=== PATIENT | male | born 1985 | race Caucasian/White ===

== ENCOUNTER → 2016-12-30 | Outpatient (CLI) | payer OTHER ==
[2016-12-30 17:03] LABS: Basophils # (A) 0.1 k/uL (0-0.2); Basophils % (A) 1 %; CHCM 33.8; Eosinophils # (A) 0.4 k/uL (0-0.7); Eosinophils % (A) 4 %; HCT 44.5 % (39.0-53.0); HDW 2.47; HGB 14.7 gm/dL (13.0-17.5); Luc # (Auto) 0.21; Luc % (Auto) 2; Lymphocytes # (A) 2.2 k/uL (1.0-4.8); Lymphocytes % (A) 22 %; MCH 29.5 pg (25.0-35.0); MCHC 33.1 g/dL (31.0-37.0); MCV 89.1 fL (80.0-100.0); Mean Platelet Volume 6.9; Monocytes # (A) 0.9 k/uL (0-1.0); Monocytes % (A) 9 %; Neutrophils # (A) 6.2 k/uL (1.3-7.7); Neutrophils % (A) 62 %; RBC 4.99 m/uL (4.30-5.90); RDW 13.3 % (11.5-15.5); WBC (Perox) 9.59
[2016-12-30 17:05] LABS: Appearance,Urine Clear (Clear); Bilirubin,Urine Negative (Negative); Glucose,Urine (UA) Negative (Negative); Ketones,Urine Negative (Negative); Leukocyte Esterase,Urine Small (Negative); Mucus,Urine Few /hpf; Nitrite,Urine Negative (Negative); Particle Count 3214; Protein,Urine Trace (Negative); RBC,Urine 4 /hpf (0-5); Specific Gravity,Urine 1.019 (1.001-1.035); Squamous Epithelial Cell,Urine <1 /hpf (0-4); UA Billing (MACRO vs. MICRO) MICRO; WBC,Urine 28 /hpf (0-5)
[2016-12-30 17:06] LABS: Partial Thromboplastin Time 26.9 sec (22.0-30.0); Prothrombin Time 10.5 sec (9.0-12.0)
[2016-12-30 17:21] LABS: Anion Gap 11 mmol/L; Blood Urea Nitrogen 13 mg/dL (9-20); Carbon Dioxide 24 mmol/L (22-30); Chloride 108 mmol/L (98-107); Glucose 86 mg/dL (74-99); Non-African American GFR(MDRD) >60 (>60 ml/min/1.73 sqM); Potassium 4.3 mmol/L (3.5-5.1); Sodium 143 mmol/L (137-145)
== END | disposition home or self-care (01) ==
LOC: LABWHC1 16:37
PROVIDERS: ATTEND Neurological Surgery
DX: Z01.812 Encounter for preprocedural laboratory examination (principal); D68.9 Coagulation defect, unspecified; M51.9 Unspecified thoracic, thoracolumbar and lumbosacral intervertebral disc disorder
CPT/HCPCS: 36415; 80051; 81001; 82565; 82947; 84520; 85025; 85610; 85730; 87070

== ENCOUNTER 2017-03-17 00:37 | Emergency (ER) | payer OTHER ==
[2017-03-17] MEDS ORDERED: HYDROmorphone 1 MG/ML 1 ML SYRINGE IM STA (01:15)
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
[2017-03-17] MEDS ORDERED: KETOROLAC 60 MG/2 ML VIAL IM STA (01:57)
--- NOTE | 2017-03-17 02:34 | XR ---
EXAM: XR Left Hip, 2 or 3 Views CLINICAL HISTORY: Pain. TECHNIQUE: Two views of the left hip. COMPARISON: Left hip radiograph dated 07/10/15. FINDINGS: Bones/joints: No acute fracture or dislocation. No significant degenerative changes. No suspicious osseous lesion. Soft tissues: Unremarkable. IMPRESSION: No acute abnormality. No significant interval change.
--- NOTE | 2017-03-17 02:36 | XR ---
EXAM: XR Pelvis, 1 or 2 Views CLINICAL HISTORY: Pain. TECHNIQUE: Frontal view of the pelvis. COMPARISON: Pelvic radiograph dated 06/18/16. FINDINGS: Bones/joints: No acute fracture. No dislocation. There is a small sclerotic focus at the right femoral neck, compatible with a bone island. Soft tissues: Surgical clips project over the lower abdomen.. IMPRESSION: No acute abnormality. No significant interval change.
--- NOTE | 2017-03-17 02:40 | XR ---
EXAM: XR Lumbar Spine, 4 or 5 Views CLINICAL HISTORY: Pain. TECHNIQUE: Frontal, lateral and oblique views of the lumbar spine. COMPARISON: Lumbar spine radiograph dated 06/18/16. FINDINGS: Vertebrae: The vertebral body heights are maintained. No acute fracture. Normal alignment. Disc spaces: There is disc height loss at L1-2 and L4-5, similar to prior. Soft tissues: Redemonstrated surgical clips projecting over the right abdomen. IMPRESSION: No acute abnormality detected. No significant interval change.
[2017-03-17 02:42] VITALS: TEMP 97.3
[2017-03-17] MEDS ORDERED: methylPREDNISolone SOD SUCCI 125 MG/2 ML VIAL IM ONE (02:49)
[2017-03-17] MEDS ORDERED: DIAZEPAM 5 MG TAB PO STA (02:49)
[2017-03-17 03:10] VITALS: BP 110/63; PULSE 68; RESP 16
== END 2017-03-17 03:13 | disposition home or self-care (01) ==
LOC: EC 00:37
DX: M54.16 Radiculopathy, lumbar region (principal); M25.552 Pain in left hip; F41.9 Anxiety disorder, unspecified; F17.200 Nicotine dependence, unspecified, uncomplicated; Z79.899 Other long term (current) drug therapy; Z85.47 Personal history of malignant neoplasm of testis; Z98.890 Other specified postprocedural states
CPT/HCPCS: 72110; 72170; 73502; 99283; 96372 ×3; J2930; J1885; J1170

== ENCOUNTER → 2017-04-08 | Outpatient (CLI) | payer OTHER ==
--- NOTE | 2017-04-10 13:24 | MR ---
EXAMINATION TYPE: MR lumbar spine wo/w con DATE OF EXAM: 04/08/2017 6:42 PM COMPARISON: 06/25/2016 HISTORY: back surgery 12/2016 CONTRAST: 20 mL intravenous MultiHance. TECHNIQUE: Multiplanar, multisequence images of the lumbar spine were acquired. FINDINGS: L5-S1: No focal disc herniation is evident. No significant disc bulge is evident. Old left laminectom y is evident. No spinal canal stenosis or neural foraminal stenosis is present. L4-L5: No significant disc bulge or disc herniation. No spinal canal stenosis. No foraminal stenosi s. Disc space narrowing is present. Old left laminectomy is present.. L3-L4: Broad-based disc bulge has anterior thecal sac contact. No AP spinal canal stenosis is present . There is disc desiccation and mild narrowing of the disc height. No spinal canal stenosis. No for aminal stenosis. . L2-L3: No significant disc bulge or disc herniation. No spinal canal stenosis. No foraminal stenosi s. Neural foramen are patent.. L1-L2: Minimal disc bulging is anterior thecal sac contact. No spinal canal stenosis present. There i s disc space narrowing. Mild disc desiccation is present. No spinal canal stenosis. No foraminal st enosis. . T12-L1: No significant disc bulge or disc herniation. No spinal canal stenosis. No foraminal stenos is. Neural foramen are patent.. There is abnormal patchy signal within the distal spinal cord posterior to the T10 inferior vertebral body level. Series 201 image 8. This area is incompletely evaluated. Recommend CT thoracic spine wit h contrast for additional evaluation. Cord expansion is not identified. No definite enhancement is id entified. IMPRESSION: 1. Patchy area of increased signal within the distal spinal cord. Correlate for history of multiple s clerosis. Additional evaluation with contrast MRI CT is recommended. This area is incompletely evalua pita on the current exam. 2. Mild disc bulging lumbar spine, greatest at L3-4 with mild anterior thecal sac compression. 3. Disc desiccation L3-4, L1 -L2
== END | disposition home or self-care (01) ==
LOC: RADMRIMAIN 17:51
PROVIDERS: ATTEND Nurse Practitioner Family
DX: M51.16 Intervertebral disc disorders with radiculopathy, lumbar region (principal)
CPT/HCPCS: 72158; A9577

== ENCOUNTER 2017-06-27 10:30 | Day surgery (SDC) | payer OTHER ==
[2017-06-23 12:40] VITALS: BMI 31.3
[2017-06-27 11:11] VITALS: RESP 16; TEMP 98
[2017-06-27] MEDS: LACTATED RINGERS 1,000 ML IV SCH ×2 (11:16→12:10)
[2017-06-27] MEDS ORDERED: MIDAZOLAM 2 MG/2 ML VIAL ONE (12:12)
[2017-06-27] MEDS ORDERED: LIDOCAINE 1% INJ 10MG/ML (20 ML MDV) ONE (12:12)
[2017-06-27] MEDS ORDERED: PROPOFOL 10 MG/ML 20 ML VIAL IV ONE (12:12)
--- NOTE | 2017-06-27 12:51 | P.PCN ---
Date of Procedure: 06/27/17 Preoperative Diagnosis: Postoperative Diagnosis: Procedure(s) Performed: Procedure: Esophagogastroduodenoscopy and biopsy. Preoperative diagnosis: Gastroesophageal reflux disease. Postoperative diagnosis: 1. Hiatal hernia with LA grade B distal esophagitis and short segment of Wu's esophagus. 2. Mild gastritis and duodenitis. Preparation and sedation: Was provided by anesthesia. Brief clinical history: The patient is a 32-year-old male who I have evaluated in the office regarding chronic reflux symptoms. The patient is currently maintained on PPI and H2 blockers without complete relief. This evaluation is to assess for esophagitis, complicated reflux disease or other pathology. Procedure: With the patient on his left lateral decubitus position and after informed consent and adequate sedation, I passed the Olympus-GIF 160 video upper endoscope through the cricopharyngeus down the esophagus. The hui-GE junction was at around 32 cm from the incisors and it was irregular and the tubular esophagus continued for around 36 cm. There was a 3-4 cm hiatal hernia. The esophagus proximal to the GE junction had multiple punctated erosions and superficial ulcerations consistent with LA grade B distal esophagitis. There was no strictures. The endoscope was then passed into the stomach which was insufflated with air and inspected in detail including the retroflex view in the cardia. There was some mottling and erythema in the antrum but no ulcers or erosions. Pyloric channel did not show any ulcers. Duodenal bulb, post bulbar area and descending duodenum showed mild erythema. I obtained biopsies from the duodenum, antrum and esophagus as well as from the Wu's segment before the endoscope was withdrawn. The patient tolerated the procedure well. Plan: The patient was reassured. Will await pathology results. I would recommend intensifying his medical therapy and consider repeat EGD to assess the healing of his esophagitis. He will probably have regular evaluations as well for his Wu's esophagus. I will keep you updated on his progress. Implants: Indications for Procedure: Operative Findings: Description of Procedure:
[2017-06-27 13:01] VITALS: BP 102/64; PULSE 69
== END 2017-06-27 14:00 | disposition home or self-care (01) ==
LOC: ORWHC2ENDO 10:30
DX: K29.50 Unspecified chronic gastritis without bleeding (principal); K21.0 Gastro-esophageal reflux disease with esophagitis; K20.0 Eosinophilic esophagitis; K22.70 Barrett's esophagus without dysplasia; K44.9 Diaphragmatic hernia without obstruction or gangrene; J45.909 Unspecified asthma, uncomplicated; F17.200 Nicotine dependence, unspecified, uncomplicated; Z85.47 Personal history of malignant neoplasm of testis; Z79.899 Other long term (current) drug therapy
CPT/HCPCS: 88305; 88313; 88342; 43239; J2250; J2001; J2704

== ENCOUNTER 2018-02-04 00:38 | Emergency (ER) | payer OTHER ==
[2018-02-04] MEDS ORDERED: MAG HYDROX/AL HYDROX/SIMETH 30 ML, HYOSCYAMINE ELIXIR 10 ML, CIMETIDINE HCL 300 MG, LID... PO STA ×4 (01:01)
--- NOTE | 2018-02-04 01:02 | ED ---
Chest Pain HPI - General Chief Complaint: Chest Pain Stated Complaint: SUZANNE Time Seen by Provider: 02/04/18 00:57 Source: patient Mode of arrival: wheelchair Limitations: no limitations - History of Present Illness MD Complaint: chest pain -: hour(s) Onset: during rest Pain Location: substernal, epigastric Pain Radiation: none Severity: severe Quality: aching, other Consistency: constant Improves With: nothing Worsens With: nothing Other Symptoms: cough Treatments Prior to Arrival: none - Related Data Home Medications Medication Instructions Recorded Confirmed Gabapentin [Neurontin] 600 mg PO TID 06/18/16 06/23/17 Cephalexin [Keflex] 500 mg PO Q12HR 06/23/17 06/23/17 Cetirizine HCl [Zyrtec] 10 mg PO DAILY 06/23/17 06/23/17 Omeprazole [PriLOSEC] 20 mg PO AC-BRKFST 06/23/17 06/23/17 Ranitidine HCl [Zantac] 150 mg PO BID 06/23/17 06/23/17 Venlafaxine HCl [Effexor XR] 37.5 mg PO DAILY 06/23/17 06/23/17 Allergies Allergy/AdvReac Type Severity Reaction Status Date / Time No Known Allergies Allergy Verified 02/04/18 00:49 Review of Systems ROS Statement: Those systems with pertinent positive or pertinent negative responses have been documented in the HPI. ROS Other: All systems not noted in ROS Statement are negative. Constitutional: Denies: fever, chills, weakness Respiratory: Denies: cough, dyspnea Cardiovascular: Reports: chest pain. Denies: palpitations, dyspnea on exertion , orthopnea, edema, syncope Gastrointestinal: Denies: abdominal pain, nausea, vomiting, diarrhea Genitourinary: Denies: dysuria, hematuria Musculoskeletal: Denies: back pain Skin: Denies: rash Neurological: Denies: headache, weakness, numbness EKG Findings - EKG Results: EKG: interpreted by KAUSHIK CAMACHO, sinus rhythm (Approximately 80 bpm), normal axis , normal QRS, normal ST/T, no acute changes - CT, Pacemaker, Normal: Normal tracing: normal tracing Past Medical History Past Medical History: Asthma, Cancer, GERD/Reflux, Seizure Disorder Additional Past Medical History / Comment(s): Testicular CA ,chronic back pain, SEIZURE -LAST ONE May. History of Any Multi-Drug Resistant Organisms: None Reported Past Surgical History: Back Surgery Additional Past Surgical History / Comment(s): testicular surgery, lymph node removal in abdomen Past Anesthesia/Blood Transfusion Reactions: Blood Transfusion Reaction, Motion Sickness Additional Past Anesthesia/Blood Transfusion Reaction / Comment(s): "WOKE UP DURING THE LYMPH NODE SURGERY, Past Psychological History: Anxiety, Depression Smoking Status: Current every day smoker Past Alcohol Use History: None Reported Past Drug Use History: None Reported General Exam Limitations: no limitations General appearance: alert, in no apparent distress Head exam: Present: atraumatic, normocephalic Eye exam: Present: normal appearance. Absent: scleral icterus, conjunctival injection ENT exam: Present: normal oropharynx Neck exam: Present: normal inspection Respiratory exam: Present: normal lung sounds bilaterally. Absent: respiratory distress, wheezes, rales, rhonchi, stridor Cardiovascular Exam: Present: regular rate, normal rhythm, normal heart sounds. Absent: systolic murmur, diastolic murmur, rubs, gallop GI/Abdominal exam: Present: soft. Absent: distended, tenderness, guarding, rebound, rigid Extremities exam: Present: normal inspection, normal capillary refill. Absent: pedal edema, calf tenderness Back exam: Present: normal inspection. Absent: CVA tenderness (R), CVA tenderness (L) Neurological exam: Present: alert Skin exam: Present: warm, dry, intact, normal color. Absent: rash Course Vital Signs 02/04/18 02/04/18 02/04/18 00:47 04:37 05:49 Temperature 98.6 F Pulse Rate 98 70 63 Respiratory 18 18 20 Rate Blood Pressure 135/89 130/83 121/81 O2 Sat by Pulse 98 98 97 Oximetry 02/04/18 06:24 Temperature 97.5 F L Pulse Rate 59 L Respiratory 16 Rate Blood Pressure 115/78 O2 Sat by Pulse 98 Oximetry Disposition Clinical Impression: Chest pain, Esophagitis Disposition: HOME SELF-CARE Condition: Good Instructions: Chest Pain (ED), Esophagitis (ED) Referrals: Mtaa Hayes MD [Primary Care Provider] - 1-2 days
[2018-02-04 01:25] LABS: Basophils # (A) 0.1 k/uL (0-0.2); Basophils % (A) 1 %; Eosinophils # (A) 0.3 k/uL (0-0.7); Eosinophils % (A) 2 %; HCT 41.4 % (39.0-53.0); HGB 14.3 gm/dL (13.0-17.5); Lymphocytes # (A) 3.6 k/uL (1.0-4.8); Lymphocytes % (A) 28 %; MCH 28.1 pg (25.0-35.0); MCHC 34.4 g/dL (31.0-37.0); MCV 81.8 fL (80.0-100.0); Mean Platelet Volume 6.5; Monocytes % (A) 7 %; Neutrophils # (A) 7.6 k/uL (1.3-7.7); Neutrophils % (A) 59 %; Platelet Count 395 k/uL (150-450); RBC 5.07 m/uL (4.30-5.90); RDW 14.1 % (11.5-15.5); WBC 12.9 k/uL (3.8-10.6)
[2018-02-04] MEDS ORDERED: KETOROLAC 30 MG/ML 1 ML VIAL IVP STA (01:26)
[2018-02-04 01:33] LABS: ALT 22 U/L (21-72); AST 20 U/L (17-59); Albumin 4.6 g/dL (3.5-5.0); Alkaline Phosphatase 68 U/L (38-126); Amylase 67 U/L (30-110); Anion Gap 15 mmol/L; Blood Urea Nitrogen 15 mg/dL (9-20); Carbon Dioxide 21 mmol/L (22-30); Chloride 106 mmol/L (98-107); Glucose 101 mg/dL (74-99); Lipase 87 U/L (23-300); Potassium 4.3 mmol/L (3.5-5.1); Sodium 142 mmol/L (137-145); Total Bilirubin 0.3 mg/dL (0.2-1.3); Total Protein 7.5 g/dL (6.3-8.2)
--- NOTE | 2018-02-04 02:28 | XR ---
EXAMINATION TYPE: XR chest 2V DATE OF EXAM: 02/04/2018 COMPARISON: 08/29/2015 HISTORY: Chest pain TECHNIQUE: Frontal and lateral views of the chest are obtained. FINDINGS: Heart and mediastinum are normal. Lungs are clear. Diaphragm is normal. Bony thorax appear s normal. IMPRESSION: Normal chest. No change.
[2018-02-04] MEDS ORDERED: NITROGLYCERIN SL TABS 0.4 MG TAB SUBLINGUAL STA (04:25)
[2018-02-04] MEDS ORDERED: ONDANSETRON 4 MG/2 ML VIAL IVP STA (04:25)
[2018-02-04] MEDS ORDERED: FAMOTIDINE 20 MG/2 ML VIAL IV STA (05:41)
[2018-02-04 06:25] VITALS: BP 115/78; PULSE 59; RESP 16; TEMP 97.5
== END 2018-02-04 06:25 | disposition home or self-care (01) ==
LOC: EC 00:38
DX: K20.9 Esophagitis, unspecified (principal); R05 Cough; K21.9 Gastro-esophageal reflux disease without esophagitis; G40.909 Epilepsy, unspecified, not intractable, without status epilepticus; F32.9 Major depressive disorder, single episode, unspecified; F41.9 Anxiety disorder, unspecified; F17.200 Nicotine dependence, unspecified, uncomplicated; Z79.899 Other long term (current) drug therapy; Z85.47 Personal history of malignant neoplasm of testis; Z98.890 Other specified postprocedural states
CPT/HCPCS: 36415; 93005; 85379; 80053; 82150; 83690; 83735; 84484; 85025; 71046; 99285; 96374; 96375 ×2; J2405; J1885

== ENCOUNTER 2018-06-04 14:00 | Emergency (ER) | payer OTHER ==
[2018-06-04 14:54] VITALS: BP 117/81; PULSE 66; RESP 18; TEMP 98.2
[2018-06-04] MEDS ORDERED: PROPARACAINE 0.5% OPHTH DROPS 15 ML BTL BOTH EYES STA (15:14)
[2018-06-04] MEDS ORDERED: diphenhydrAMINE 50 MG/ML 1 ML VIAL IM STA (15:21)
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
[2018-06-04] MEDS ORDERED: predniSONE 20 MG TAB PO STA (16:42)
== END 2018-06-04 17:00 | disposition home or self-care (01) ==
LOC: EC 14:00
DX: L30.9 Dermatitis, unspecified (principal); K21.9 Gastro-esophageal reflux disease without esophagitis; G40.409 Other generalized epilepsy and epileptic syndromes, not intractable, without status epilepticus; F32.9 Major depressive disorder, single episode, unspecified; F41.9 Anxiety disorder, unspecified; F17.200 Nicotine dependence, unspecified, uncomplicated; Z85.47 Personal history of malignant neoplasm of testis; Z79.899 Other long term (current) drug therapy
CPT/HCPCS: 99283; 96372; J1200; J7512

== ENCOUNTER → 2018-09-07 | Outpatient (CLI) | payer OTHER ==
--- NOTE | 2018-09-08 06:59 | MR ---
EXAMINATION TYPE: MR lumbar spine wo/w con DATE OF EXAM: 09/07/2018 COMPARISON: 04/08/2017 HISTORY: Low back pain TECHNIQUE: Multiplanar, multisequence images of the lumbar spine were acquired utilizing 11 mL intravenous Gadav ist gadolinium contrast. FINDINGS: The vertebral bodies of the lumbar spine maintain normal vertebral body heights and alignme nt. Bone marrow signal is overall within normal limits. Multilevel disc desiccation is seen. Conus me dullaris is unremarkable terminating at T12-L1. There is no abnormal postcontrast enhancement seen. N o evidence of epidural fibrosis. L1-L2: Small broad-based disc bulge is noted with facet arthropathy and ligamentum flavum buckling ho wever there is no resultant spinal canal stenosis or neural foraminal narrowing. L2-L3: There is a right eccentric broad-based disc bulge and facet arthropathy as well as ligamentum flavum buckling mildly narrowing the right neural foramen. Spinal canal and left neural foramen are p atent. L3-L4: There is a broad-based disc bulge, facet arthropathy and ligamentum flavum buckling as well as a right foraminal annular tear. There is resultant mild bilateral neural foraminal narrowing and no spinal canal stenosis. L4-L5: There is a focal central disc herniation superimposed upon a broad-based disc bulge. Facet art hropathy is seen at this level. Left ligamentum flavum has been removed and right ligamentum flavum b uckling is seen. No spinal canal stenosis. Mild bilateral neural foraminal narrowing is present. Left hemilaminectomy is seen. L5-S1: There is surgical absence of the left ligamentum flavum. Disc desiccation is seen within small broad-based disc bulge. No spinal canal stenosis nor neural foraminal narrowing. Left hemilaminectom y is seen. IMPRESSION: 1. Progression of degenerative disc disease in comparison to the prior. New small central disc hernia tion at L4-L5 is seen without spinal canal stenosis. 2. No evidence of vertebral body height loss or malalignment. 3. No abnormal postcontrast enhancement. No evidence of epidural fibrosis.
== END ==
LOC: RADMRIMAIN 12:44
PROVIDERS: ATTEND Physician Assistant
DX: M51.26 Other intervertebral disc displacement, lumbar region (principal); M51.36 Other intervertebral disc degeneration, lumbar region
CPT/HCPCS: 72158; A9585

== ENCOUNTER 2018-10-17 14:20 | Emergency (ER) | payer OTHER ==
[2018-10-17] MEDS ORDERED: SODIUM CHLORIDE 0.9% 1,000 ML IV STA (14:38)
[2018-10-17] MEDS ORDERED: ONDANSETRON 4 MG/2 ML VIAL IVP STA (14:38)
[2018-10-17] MEDS ORDERED: MORPHINE SULFATE 2 MG/ML SYRINGE IVP STA (14:38)
[2018-10-17] MEDS ORDERED: LORazepam 2 MG/ML INJ IM STA (14:43)
[2018-10-17 15:37] LABS: Basophils # (A) 0.1 k/uL (0-0.2); Basophils % (A) 0 %; Eosinophils # (A) 0.1 k/uL (0-0.7); Eosinophils % (A) 1 %; HCT 45.5 % (39.0-53.0); HGB 15.2 gm/dL (13.0-17.5); Lymphocytes % (A) 12 %; MCH 26.9 pg (25.0-35.0); MCHC 33.3 g/dL (31.0-37.0); MCV 80.8 fL (80.0-100.0); Mean Platelet Volume 6.4; Monocytes # (A) 1.4 k/uL (0-1.0); Monocytes % (A) 8 %; Neutrophils # (A) 13.5 k/uL (1.3-7.7); Neutrophils % (A) 78 %; Platelet Count 516 k/uL (150-450); RBC 5.64 m/uL (4.30-5.90); RDW 15.3 % (11.5-15.5); WBC 17.3 k/uL (3.8-10.6)
[2018-10-17 15:43] LABS: Appearance,Urine Cloudy (Clear); Bilirubin,Urine 1+ (Negative); Blood,Urine Negative (Negative); Color,Urine Dark Yellow; Glucose,Urine (UA) Trace (Negative); Ketones,Urine 3+ (Negative); Leukocyte Esterase,Urine Small (Negative); Mucus,Urine Many /hpf; Nitrite,Urine Negative (Negative); Protein,Urine 3+ (Negative); RBC,Urine 5 /hpf (0-5); WBC,Urine 10 /hpf (0-5)
[2018-10-17 15:53] LABS: ALT 30 U/L (21-72); AST 21 U/L (17-59); Albumin 4.8 g/dL (3.5-5.0); Alkaline Phosphatase 76 U/L (38-126); Amylase 65 U/L (30-110); Anion Gap 14 mmol/L; Blood Urea Nitrogen 15 mg/dL (9-20); Calcium 10.3 mg/dL (8.4-10.2); Carbon Dioxide 20 mmol/L (22-30); Chloride 109 mmol/L (98-107); Glucose 105 mg/dL (74-99); Lipase 60 U/L (23-300); Potassium 4.4 mmol/L (3.5-5.1); Sodium 143 mmol/L (137-145); Total Bilirubin 0.8 mg/dL (0.2-1.3)
[2018-10-17] MEDS ORDERED: METOCLOPRAMIDE 5 MG/ML 2 ML VIAL IVP STA (16:35)
[2018-10-17] MEDS ORDERED: diphenhydrAMINE 50 MG CAP PO STA (16:36)
--- NOTE | 2018-10-17 17:10 | ED ---
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 Patient states that he has had crampy abdominal pain and vomiting/diarrhea since Tuesday. Patient states that the pain began increasing today, and he continues to vomit and have diarrhea. Patient denies any hematemesis, melena, hematochezia, testicular pain. Patient states that the pain is in the upper middle region, epigastric. Pt admits to chills, denies taking temperature or feeling warm. Patient denies chest pain, shortness of breath, dyspnea on exertion, upper shoulder paresthesias, headache , confusion, dizziness, hematuria, urgency, frequency, back pain. Upon arrival pt states he didnt take his anxiety medications and would like them. Pt give morphine and zofran by EMS. Upon arrival VS within acceptable limits. - Related Data Home Medications Medication Instructions Recorded Confirmed Cetirizine HCl [Zyrtec] 10 mg PO DAILY 06/23/17 10/17/18 Omeprazole [PriLOSEC] 20 mg PO AC-BID 06/23/17 10/17/18 Ranitidine HCl [Zantac] 150 mg PO BID 06/23/17 10/17/18 Venlafaxine HCl [Effexor XR] 37.5 mg PO DAILY 06/23/17 10/17/18 Gabapentin 600 mg PO TID 10/17/18 10/17/18 Previous Rx's Medication Instructions Recorded Cephalexin [Keflex] 500 mg PO Q12HR 7 Days #14 cap 10/17/18 Ondansetron [Zofran] 4 mg PO Q12HR PRN 3 Days #6 tab 10/17/18 Allergies Allergy/AdvReac Type Severity Reaction Status Date / Time tramadol AdvReac Nausea & Verified 10/17/18 17:54 Vomiting Review of Systems ROS Statement: Those systems with pertinent positive or pertinent negative responses have been documented in the HPI. ROS Other: All systems not noted in ROS Statement are negative. Constitutional: Reports: chills. Denies: fever ENT: Denies: ear pain, throat pain Respiratory: Denies: cough, dyspnea, wheezes, hemoptysis, stridor Cardiovascular: Denies: chest pain, palpitations, dyspnea on exertion Endocrine: Denies: fatigue Gastrointestinal: Reports: abdominal pain, nausea, vomiting, diarrhea. Denies: constipation, hematemesis, melena, hematochezia Genitourinary: Denies: urgency, dysuria, frequency, hematuria, discharge Musculoskeletal: Reports: back pain (chronic back pain no new changes) Skin: Denies: rash, lesions Neurological: Denies: headache, weakness, numbness, paresthesias, confusion, abnormal gait Past Medical History Past Medical History: Asthma, Cancer, GERD/Reflux, Seizure Disorder Additional Past Medical History / Comment(s): Testicular CA ,chronic back pain, SEIZURE -LAST ONE May. History of Any Multi-Drug Resistant Organisms: None Reported Past Surgical History: Back Surgery Additional Past Surgical History / Comment(s): testicular surgery, lymph node removal in abdomen Past Anesthesia/Blood Transfusion Reactions: Blood Transfusion Reaction, Motion Sickness Additional Past Anesthesia/Blood Transfusion Reaction / Comment(s): "WOKE UP DURING THE LYMPH NODE SURGERY, Past Psychological History: Anxiety, Depression Smoking Status: Current every day smoker Past Alcohol Use History: Occasional Past Drug Use History: Marijuana General Exam - General Exam Comments Initial Comments: General: The patient is awake and alert, in no distress, and does not appear acutely ill. Eye: Pupils are equal, round and reactive to light, extra-ocular movements are intact. No nystagmus. There is normal conjunctiva bilaterally. No signs of icterus. Ears, nose, mouth and throat: There are moist mucous membranes and no oral lesions. Oropharynx nonerythematous, no tonsillar enlargement, lesions or exudates. No anterior cervical lymphadenopathy. Neck: The neck is supple, there is no tenderness or JVD. Cardiovascular: There is a regular rate and rhythm. No murmur, rub or gallop is appreciated. Respiratory: Lungs are clear to auscultation, respirations are non-labored, breath sounds are equal. No wheezes, stridor, rales, or rhonchi. Gastrointestinal: No noted diaphoresis, jaundice, pallor, protecting postures or squirming. Symmetrical pigmentation of abdomen without signs of inflammation, or striae. Large car to the right of umbilicus from previous abdominal surgery. Umbilicus mildline, inverted without swelling. No dilated veins. Abdomen contour obese, no noted abdominal distention. No visible masses. No peristalsis, aortic pulsations, or ventral hernia. Bowel sounds audible in all 4 quadrants, unremarkable. No friction rubs or venous hums. No epigastic, hepatic or abdominal bruits. Tenderness to palpation of the epigastric region. No pain to palpation of the right upper quadrant, left lower quadrant or right lower quadrant. No pelvic pain and palpation. Liver edge, not palpable. Spleen edge , right and left kidney not palpable. Superior bladder margin non-tender. Special Testing: Negative [place], [place], McBurney, Loly, cutaneous hyperesthesia. Iliopsoas and obturator tests negative bilaterally. Negative Heel Jar test. No CVA tenderness. Digital rectal exam deferred. Negative francis turners or cullens sign Musculoskeletal: Normal ROM, no tenderness. Strength 5/5. Sensation intact. Radial pulses equal bilaterally 2+. Neurological: A&O x 3. CN II-XII intact, There are no obvious motor or sensory deficits. Coordination appears grossly intact. Speech is normal. Skin: Skin is warm and dry and no rashes or lesions are noted. Psychiatric: Cooperative, appropriate mood & affect, normal judgment. Limitations: no limitations Course Vital Signs 10/17/18 10/17/18 10/17/18 14:33 17:28 19:33 Temperature 96.4 F L 96.9 F L Pulse Rate 73 67 71 Respiratory 22 20 20 Rate Blood Pressure 119/68 127/67 137/78 O2 Sat by Pulse 98 99 96 Oximetry - Reevaluation(s) Reevaluation #1: Pt requested anxiety medication, stating he didnt take home meds, given 1mg IM ativan- 10/17/18 Reevaluation #2: Abdominal exam revealed no changes, pt given reglan for nausea with benadryl. 10/17/18 Reevaluation #3: Pt is now tolerating PO intake, eating jello has consumed 3 timmy of vernor, no emesis in 2 hours. Pt is requesting discharge, saying symptoms are 100% relieved. 10/17/18 Medical Decision Making - Lab Data Result diagrams: 10/17/18 15:00 10/17/18 15:00 Lab Results 10/17/18 10/17/18 10/17/18 Range/Units 15:00 15:00 15:00 WBC 17.3 H (3.8-10.6) k/uL RBC 5.64 (4.30-5.90) m/uL Hgb 15.2 (13.0-17.5) gm/dL Hct 45.5 (39.0-53.0) % MCV 80.8 (80.0-100.0) fL MCH 26.9 (25.0-35.0) pg MCHC 33.3 (31.0-37.0) g/dL RDW 15.3 (11.5-15.5) % Plt Count 516 H (150-450) k/uL Neutrophils % 78 % Lymphocytes % 12 % Monocytes % 8 % Eosinophils % 1 % Basophils % 0 % Neutrophils # 13.5 H (1.3-7.7) k/uL Lymphocytes # 2.0 (1.0-4.8) k/uL Monocytes # 1.4 H (0-1.0) k/uL Eosinophils # 0.1 (0-0.7) k/uL Basophils # 0.1 (0-0.2) k/uL Sodium 143 (137-145) mmol/L Potassium 4.4 (3.5-5.1) mmol/L Chloride 109 H (98-107) mmol/L Carbon Dioxide 20 L (22-30) mmol/L Anion Gap 14 mmol/L BUN 15 (9-20) mg/dL Creatinine 0.98 (0.66-1.25) mg/dL Est GFR (CKD-EPI)AfAm >90 (>60 ml/min/1.73 sqM) Est GFR (CKD-EPI)NonAf >90 (>60 ml/min/1.73 sqM) Glucose 105 H (74-99) mg/dL Calcium 10.3 H (8.4-10.2) mg/dL Total Bilirubin 0.8 (0.2-1.3) mg/dL AST 21 (17-59) U/L ALT 30 (21-72) U/L Alkaline Phosphatase 76 (38-126) U/L Total Protein 8.0 (6.3-8.2) g/dL Albumin 4.8 (3.5-5.0) g/dL Amylase 65 (30-110) U/L Lipase 60 (23-300) U/L Urine Color Dark Yellow Urine Appearance Cloudy (Clear) Urine pH 7.0 (5.0-8.0) Ur Specific [place] 1.030 (1.001-1.035) Urine Protein 3+ H (Negative) Urine Glucose (UA) Trace H (Negative) Urine Ketones 3+ H (Negative) Urine Blood Negative (Negative) Urine Nitrite Negative (Negative) Urine Bilirubin 1+ H (Negative) Urine Urobilinogen 4.0 (<2.0) mg/dL Ur Leukocyte Esterase Small H (Negative) Urine RBC 5 (0-5) /hpf Urine WBC 10 H (0-5) /hpf Urine Mucus Many H (None) /hpf Disposition Clinical Impression: Nausea vomiting and diarrhea, UTI (urinary tract infection) Disposition: HOME SELF-CARE Condition: Good Instructions: Acute Nausea and Vomiting (ED), Abdominal Pain (ED) Additional Instructions: Please use medication as discussed. Please follow-up with family doctor in the next 2 days. Please return to emergency room if the symptoms increase or worsen or for any other concerns. Prescriptions: Cephalexin [Keflex] 500 mg PO Q12HR 7 Days #14 cap Ondansetron [Zofran] 4 mg PO Q12HR PRN 3 Days #6 tab PRN Reason: Nausea Is patient prescribed a controlled substance at d/c from ED?: No Referrals: Mata Hayes MD [Primary Care Provider] - 1-2 days Larry Dietz MD [STAFF PHYSICIAN] - 1-2 days Time of Disposition: 19:22
--- NOTE | 2018-10-17 17:22 | CT ---
EXAMINATION TYPE: CT abdomen pelvis w con DATE OF EXAM: 10/17/2018 COMPARISON: None HISTORY: Generalized abdominal pain with nausea and vomiting. CT DLP: 1330 mGycm. Automated exposure control for dose reduction was used. TECHNIQUE: Helical acquisition of images was performed from the lung bases through the pelvis. CONTRAST: Performed without Oral Contrast and with IV Contrast, patient injected with 100 mL of Isovu e 300. FINDINGS: VISUALIZED SUBDIAPHRAGMATIC STRUCTURES: 5 cm hiatal hernia noted. No other findings. LIVER/GB: No significant abnormality is appreciated. PANCREAS: No significant abnormality is seen. SPLEEN: No significant abnormality is seen. ADRENALS: No significant abnormality is seen. KIDNEYS: No significant abnormality is seen. PERITONEAL CAVITY: No peritoneum or fluid. RETROPERITONEAL ADENOPATHY: None visualized. Multiple surgical jeevan are noted in the abdomen, with a few in the upper pelvis. REPRODUCTIVE ORGANS: No significant abnormality is seen URINARY BLADDER: No significant abnormality is seen. PELVIC ADENOPATHY: None visualized. OSSEOUS STRUCTURES: No significant abnormality is seen. BOWEL: No significant abnormality is seen. The cecum is high riding, above the superior iliac crest level. The appendix has normal appearance, and it is retrocecal in position, related to the right pso as. There are a few scattered sigmoid subcentimeter diverticula, but no diverticulitis. VASCULATURE: No acute findings. IMPRESSION: NO ACUTE PROCESS.
[2018-10-17 17:29] VITALS: RESP 20
[2018-10-17 19:34] VITALS: BP 137/78; PULSE 71; TEMP 96.9
== END 2018-10-17 19:33 | disposition home or self-care (01) ==
LOC: EC 14:20
DX: N39.0 Urinary tract infection, site not specified (principal); R11.2 Nausea with vomiting, unspecified; R19.7 Diarrhea, unspecified; R10.13 Epigastric pain; K21.9 Gastro-esophageal reflux disease without esophagitis; G40.909 Epilepsy, unspecified, not intractable, without status epilepticus; F32.9 Major depressive disorder, single episode, unspecified; F41.9 Anxiety disorder, unspecified; F17.200 Nicotine dependence, unspecified, uncomplicated; Z85.47 Personal history of malignant neoplasm of testis; Z85.89 Personal history of malignant neoplasm of other organs and systems
CPT/HCPCS: 36415; 80053; 82150; 83690; 85025; 81001; 74177; 99285; 96374; 96375; 96361; 96372; J2060; J2765; J2405; Q9967

== ENCOUNTER 2018-12-29 14:04 | Emergency (ER) | payer OTHER ==
[2018-12-29] MEDS ORDERED: ONDANSETRON 4 MG/2 ML VIAL IVP STA (14:09)
[2018-12-29] MEDS ORDERED: PANTOPRAZOLE 40 MG/10 ML VIAL IVP STA (14:09)
[2018-12-29] MEDS ORDERED: SODIUM CHLORIDE 0.9% 2,000 ML IV STA (14:09)
[2018-12-29] MEDS ORDERED: LORazepam 2 MG/ML INJ IV STA (14:17)
--- NOTE | 2018-12-29 14:19 | ED ---
Nausea/Vomiting/Diarrhea HPI - General Chief complaint: Nausea/Vomiting/Diarrhea Stated complaint: NVD Time Seen by Provider: 12/29/18 14:09 Source: patient, RN notes reviewed Mode of arrival: ambulatory Limitations: no limitations - History of Present Illness Initial comments: 33-year-old male presents emergency Department with chief complaint of nausea vomiting diarrhea last few days. Patient states cannot keep anything down. Patient states that he is so anxious he feels like he is hyperventilating from the ongoing nausea and vomiting. Patient reports watery loose diarrhea with no melena or hematochezia. Patient reports bile emesis with no hematemesis or coffee-ground emesis. Denies chest pain or shortness breath. He does have severe underlying GERD in which she takes Zantac and Prilosec for. Patient reports no fever or chills denies localized abdominal pain states he does have diffuse cramping. - Related Data Home Medications Medication Instructions Recorded Confirmed Cetirizine HCl [Zyrtec] 10 mg PO DAILY 06/23/17 12/29/18 Omeprazole [PriLOSEC] 20 mg PO AC-BID 06/23/17 12/29/18 Ranitidine HCl [Zantac] 150 mg PO BID 06/23/17 12/29/18 Venlafaxine HCl [Effexor XR] 37.5 mg PO DAILY 06/23/17 12/29/18 Gabapentin 600 mg PO TID 10/17/18 12/29/18 Previous Rx's Medication Instructions Recorded Ondansetron Odt [Zofran Odt] 4 mg PO Q6HR PRN #14 tab 12/29/18 Sulfamethox-Tmp 800-160Mg [Bactrim 1 each PO Q12HR #14 tab 12/29/18 Ds] Allergies Allergy/AdvReac Type Severity Reaction Status Date / Time tramadol AdvReac Nausea & Verified 12/29/18 14:38 Vomiting Review of Systems ROS Statement: Those systems with pertinent positive or pertinent negative responses have been documented in the HPI. ROS Other: All systems not noted in ROS Statement are negative. Past Medical History Past Medical History: Asthma, Cancer, GERD/Reflux, Seizure Disorder Additional Past Medical History / Comment(s): Testicular CA ,chronic back pain, SEIZURE -LAST ONE May. History of Any Multi-Drug Resistant Organisms: None Reported Past Surgical History: Back Surgery Additional Past Surgical History / Comment(s): testicular surgery, lymph node removal in abdomen Past Anesthesia/Blood Transfusion Reactions: Blood Transfusion Reaction, Motion Sickness Additional Past Anesthesia/Blood Transfusion Reaction / Comment(s): "WOKE UP DURING THE LYMPH NODE SURGERY, Past Psychological History: Anxiety, Depression Smoking Status: Current every day smoker Past Alcohol Use History: Occasional Past Drug Use History: Marijuana General Exam Limitations: no limitations General appearance: alert, in no apparent distress Head exam: Present: atraumatic, normocephalic, normal inspection Eye exam: Present: normal appearance, PERRL, EOMI. Absent: scleral icterus, conjunctival injection, periorbital swelling ENT exam: Present: normal exam, normal oropharynx, mucous membranes moist Neck exam: Present: normal inspection, full ROM. Absent: tenderness, meningismus, lymphadenopathy Respiratory exam: Present: normal lung sounds bilaterally. Absent: respiratory distress, wheezes, rales, rhonchi, stridor Cardiovascular Exam: Present: regular rate, normal rhythm, normal heart sounds. Absent: systolic murmur, diastolic murmur, rubs, gallop, clicks GI/Abdominal exam: Present: soft, tenderness (Mild to moderate diffuse), normal bowel sounds. Absent: distended, guarding, rebound, rigid Back exam: Absent: CVA tenderness (R), CVA tenderness (L) Skin exam: Present: warm, dry, intact, normal color. Absent: rash Course Vital Signs 12/29/18 14:06 Temperature 97.5 F L Pulse Rate 90 Respiratory 24 Rate Blood Pressure 135/78 O2 Sat by Pulse 99 Oximetry Medical Decision Making - Medical Decision Making 33-year-old male present emergency from for nausea vomiting diarrhea. Patient feels better after antiemetics, and antacids and fluids. Patient we discharged with Zofran. Patient noted have urinary tract infection. Patient has no concern for STD has not been sexually active. Patient will be discharged at this time with close follow-up - Lab Data Result diagrams: 12/29/18 14:24 12/29/18 14:24 Lab Results 12/29/18 12/29/18 12/29/18 Range/Units 14:24 14:24 15:20 WBC 14.0 H (3.8-10.6) k/uL RBC 5.64 (4.30-5.90) m/uL Hgb 15.0 (13.0-17.5) gm/dL Hct 46.1 (39.0-53.0) % MCV 81.7 (80.0-100.0) fL MCH 26.6 (25.0-35.0) pg MCHC 32.6 (31.0-37.0) g/dL RDW 16.1 H (11.5-15.5) % Plt Count 529 H (150-450) k/uL Neutrophils % 75 % Lymphocytes % 14 % Monocytes % 8 % Eosinophils % 1 % Basophils % 1 % Neutrophils # 10.5 H (1.3-7.7) k/uL Lymphocytes # 2.0 (1.0-4.8) k/uL Monocytes # 1.1 H (0-1.0) k/uL Eosinophils # 0.1 (0-0.7) k/uL Basophils # 0.1 (0-0.2) k/uL Anisocytosis Slight Sodium 143 (137-145) mmol/L Potassium 3.9 (3.5-5.1) mmol/L Chloride 102 (98-107) mmol/L Carbon Dioxide 27 (22-30) mmol/L Anion Gap 14 mmol/L BUN 19 (9-20) mg/dL Creatinine 0.87 (0.66-1.25) mg/dL Est GFR (CKD-EPI)AfAm >90 (>60 ml/min/1.73 sqM) Est GFR (CKD-EPI)NonAf >90 (>60 ml/min/1.73 sqM) Glucose 110 H (74-99) mg/dL Calcium 10.6 H (8.4-10.2) mg/dL Total Bilirubin 1.0 (0.2-1.3) mg/dL AST 23 (17-59) U/L ALT 29 (21-72) U/L Alkaline Phosphatase 63 (38-126) U/L Total Protein 8.6 H (6.3-8.2) g/dL Albumin 5.1 H (3.5-5.0) g/dL Lipase 41 (23-300) U/L Urine Color Yellow Urine Appearance Cloudy (Clear) Urine pH 8.0 (5.0-8.0) Ur Specific [place] 1.029 (1.001-1.035) Urine Protein 1+ H (Negative) Urine Glucose (UA) Negative (Negative) Urine Ketones 3+ H (Negative) Urine Blood Negative (Negative) Urine Nitrite Negative (Negative) Urine Bilirubin Negative (Negative) Urine Urobilinogen 6.0 (<2.0) mg/dL Ur Leukocyte Esterase Large H (Negative) Urine RBC 5 (0-5) /hpf Urine WBC 65 H (0-5) /hpf Ur Squamous Epith Cells 3 (0-4) /hpf Urine Mucus Many H (None) /hpf Disposition Clinical Impression: Gastroenteritis, UTI (urinary tract infection) Disposition: HOME SELF-CARE Condition: Stable Instructions (If sedation given, give patient instructions): Acute Nausea and Vomiting (ED) Additional Instructions: Please return to the Emergency Department if symptoms worsen or any other concerns. Prescriptions: Ondansetron Odt [Zofran Odt] 4 mg PO Q6HR PRN #14 tab PRN Reason: Nausea Sulfamethox-Tmp 800-160Mg [Bactrim Ds] 1 each PO Q12HR #14 tab Is patient prescribed a controlled substance at d/c from ED?: No Referrals: Mata Hayes MD [Primary Care Provider] - 1-2 days Time of Disposition: 16:02
[2018-12-29 15:02] LABS: ALT 29 U/L (21-72); AST 23 U/L (17-59); Albumin 5.1 g/dL (3.5-5.0); Alkaline Phosphatase 63 U/L (38-126); Anion Gap 14 mmol/L; Anisocytosis Slight; Basophils # (A) 0.1 k/uL (0-0.2); Basophils % (A) 1 %; Blood Urea Nitrogen 19 mg/dL (9-20); Calcium 10.6 mg/dL (8.4-10.2); Carbon Dioxide 27 mmol/L (22-30); Chloride 102 mmol/L (98-107); Eosinophils # (A) 0.1 k/uL (0-0.7); Eosinophils % (A) 1 %; Glucose 110 mg/dL (74-99); HCT 46.1 % (39.0-53.0); Lipase 41 U/L (23-300); Lymphocytes % (A) 14 %; MCH 26.6 pg (25.0-35.0); MCHC 32.6 g/dL (31.0-37.0); MCV 81.7 fL (80.0-100.0); Mean Platelet Volume 6.1; Monocytes # (A) 1.1 k/uL (0-1.0); Monocytes % (A) 8 %; Neutrophils # (A) 10.5 k/uL (1.3-7.7); Neutrophils % (A) 75 %; Platelet Count 529 k/uL (150-450); Potassium 3.9 mmol/L (3.5-5.1); RBC 5.64 m/uL (4.30-5.90); RDW 16.1 % (11.5-15.5); Sodium 143 mmol/L (137-145); Total Protein 8.6 g/dL (6.3-8.2)
[2018-12-29 15:43] LABS: Appearance,Urine Cloudy (Clear); Bilirubin,Urine Negative (Negative); Blood,Urine Negative (Negative); Color,Urine Yellow; Glucose,Urine (UA) Negative (Negative); Ketones,Urine 3+ (Negative); Leukocyte Esterase,Urine Large (Negative); Mucus,Urine Many /hpf; Nitrite,Urine Negative (Negative); Protein,Urine 1+ (Negative); RBC,Urine 5 /hpf (0-5); Specific Gravity,Urine 1.029 (1.001-1.035); Squamous Epithelial Cell,Urine 3 /hpf (0-4); WBC,Urine 65 /hpf (0-5)
[2018-12-29] MEDS ORDERED: KETOROLAC 30 MG/ML 1 ML VIAL IVP STA (16:59)
[2018-12-29] MEDS ORDERED: METOCLOPRAMIDE 5 MG/ML 2 ML VIAL IVP STA (16:59)
[2018-12-29] MEDS ORDERED: diphenhydrAMINE 50 MG/ML 1 ML VIAL IVP STA (16:59)
[2018-12-29 17:12] VITALS: BP 116/78; PULSE 98; RESP 18; TEMP 97.9
== END 2018-12-29 17:12 | disposition home or self-care (01) ==
LOC: EC 14:04
DX: K52.9 Noninfective gastroenteritis and colitis, unspecified (principal); N39.0 Urinary tract infection, site not specified; K21.9 Gastro-esophageal reflux disease without esophagitis; G40.909 Epilepsy, unspecified, not intractable, without status epilepticus; F41.9 Anxiety disorder, unspecified; F32.9 Major depressive disorder, single episode, unspecified; F17.200 Nicotine dependence, unspecified, uncomplicated; Z85.47 Personal history of malignant neoplasm of testis; Z98.890 Other specified postprocedural states; Z79.899 Other long term (current) drug therapy; Z88.5 Allergy status to narcotic agent
CPT/HCPCS: 36415; 80053; 83690; 85025; 81001; 87086; 99284; 96374; 96375 ×5; 96361 ×3; J2060; J1200; J2765; J2405; J1885; C9113

== ENCOUNTER 2020-01-01 13:16 | Emergency (ER) | payer OTHER ==
[2020-01-01 13:26] VITALS: TEMP 97.6
[2020-01-01 13:50] LABS: Appearance,Urine Cloudy (Clear); Bilirubin,Urine Negative (Negative); Blood,Urine Large (Negative); Budding Yeast,Urine Rare /hpf; Color,Urine Dark Brown; Glucose,Urine (UA) Negative (Negative); Ketones,Urine Negative (Negative); Leukocyte Esterase,Urine Small (Negative); Mucus,Urine Many /hpf; Nitrite,Urine Negative (Negative); PH, Urine 5.5 (5.0-8.0); Protein,Urine 2+ (Negative); RBC,Urine >182 /hpf (0-5); Specific Gravity,Urine 1.026 (1.001-1.035); Squamous Epithelial Cell,Urine 1 /hpf (0-4); Urobilinogen,Urine <2.0 mg/dL (<2.0); WBC,Urine 11 /hpf (0-5)
[2020-01-01] MEDS ORDERED: MORPHINE SULFATE 4 MG/ML SYRINGE IV STA (13:56)
[2020-01-01] MEDS ORDERED: SODIUM CHLORIDE 0.9% 1,000 ML IV STA ×2 (14:02→16:28)
[2020-01-01] MEDS ORDERED: KETOROLAC 30 MG/ML 1 ML VIAL IVP STA (14:02)
--- NOTE | 2020-01-01 14:04 | ED ---
General Adult HPI - General Chief complaint: Urogenital Stated complaint: Abd/lt testcular pain Time Seen by Provider: 01/01/20 13:44 Source: patient Mode of arrival: EMS Limitations: no limitations - History of Present Illness Initial comments: Dictation was produced using [employer] dictation software. please excuse any grammatical, word or spelling errors. Chief Complaint: 34 yo male presents with left-sided testicular pain. History of Present Illness: Patient is a 34-year-old male who has past medical history of testicular cancer. Several years ago he had his right testicle removed and several lymph nodes in the abdominal area removed as well. Approximately 1-1/2 hours prior to arrival patient experienced severe left-sided testicular pain that radiated up into his abdomen. She reports that he's never had pain like this in the past. Denies any vaginal discharge. Patient denies any history of trauma to the site. He does also report left-sided abdominal pain. Denies any diarrhea. He does feel slightly nauseous however no episode of vomiting. Denies any constitutional symptoms. He does have a history of kidney stones however his symptoms are very atypical for his kidney stones. The ROS documented in this emergency department record has been reviewed and confirmed by me. Those systems with pertinent positive or negative responses have been documented in the HPI. All other systems are other negative and/or n oncontributory. PHYSICAL EXAM: General Impression: Alert and oriented x3, he distress secondary to pain HEENT: Normocephalic atraumatic, extra-ocular movements intact, pupils equal and reactive to light bilaterally, mucous membranes moist. Cardiovascular: Heart regular rate and rhythm, S1&S2 audible, no murmurs, rubs or gallops Chest: Lungs clear to auscultation bilaterally, no rhonchi, no wheeze, no rales Abdomen: Left lower quadrant abdominal tenderness, left testicle is atraumatic. No scrotal erythema. Negative Prehn's sign Musculoskeletal: Pulses present and equal in all extremities, no peripheral edema Motor: no focal deficits noted Neurological: CN II-XII grossly intact, no focal motor or sensory deficits noted Skin: Intact with no visualized rashes Psych: Normal affect and mood ED course: 34-year-old male presents with abdominal pain and left testicular pain. Vital signs upon arrival are within acceptable limits. She was initially placed in the hallway due to several ER holds. A bed was arranged for him and patient was moved into bed 10 were testicle and genital area can be evaluated in privacy. Testicle appeared benign. On physical examination however he was in s ignificant distress. Ultrasound testicle was ordered immediately without any signs to suggest torsion. There was greater than 182 red blood cells. Given patient's clinical presentation is concerned of nephrolithiasis. Laboratory evaluation obtained. Mild leukocytosis of 14.2, coag panel unremarkable. Metabolic panel is negative. Urinalysis shows greater than 182 red blood cells. Given patient's degree of pain. CT of the abdomen and pelvis was obtained showing 4 mm calculus in the urinary bladder with mild sided hydronephrosis. Patient is given analgesia and intravenous fluids. He was observed in emergency department for 3 hours. He is reevaluated with improvement of symptoms. Patient clinically stable. He feels well. Patient agreeable for discharge. Is given follow-up with urology for outpatient management of stones. Patient also advised follow-up with primary care physician. Return parameters discussed. All questions answered. - Related Data Home Medications Medication Instructions Recorded Confirmed Cetirizine HCl [Zyrtec] 10 mg PO DAILY 06/23/17 01/01/20 Omeprazole [PriLOSEC] 20 mg PO AC-BID 06/23/17 01/01/20 Ranitidine HCl [Zantac] 150 mg PO BID 06/23/17 01/01/20 Venlafaxine HCl [Effexor XR] 37.5 mg PO DAILY 06/23/17 01/01/20 Gabapentin 600 mg PO TID 10/17/18 01/01/20 Baclofen 10 mg PO TID PRN 01/01/20 01/01/20 Ondansetron Odt [Zofran Odt] 8 mg PO Q8HR PRN 01/01/20 01/01/20 Allergies Allergy/AdvReac Type Severity Reaction Status Date / Time black pepper Allergy Swelling Verified 01/01/20 16:09 tramadol AdvReac Nausea & Verified 01/01/20 16:09 Vomiting Review of Systems ROS Statement: Those systems with pertinent positive or pertinent negative responses have been documented in the HPI. ROS Other: All systems not noted in ROS Statement are negative. Past Medical History Past Medical History: Asthma, Cancer, GERD/Reflux, Seizure Disorder Additional Past Medical History / Comment(s): Testicular CA ,chronic back pain, SEIZURE -LAST ONE May. History of Any Multi-Drug Resistant Organisms: None Reported Past Surgical History: Back Surgery Additional Past Surgical History / Comment(s): testicular surgery, lymph node removal in abdomen Past Anesthesia/Blood Transfusion Reactions: Blood Transfusion Reaction, Motion Sickness Additional Past Anesthesia/Blood Transfusion Reaction / Comment(s): "WOKE UP DURING THE LYMPH NODE SURGERY, Past Psychological History: Anxiety, Depression Smoking Status: Current every day smoker Past Alcohol Use History: Occasional Past Drug Use History: Marijuana General Exam Limitations: no limitations Course Vital Signs 01/01/20 01/01/20 01/01/20 13:23 15:06 16:06 Temperature 97.6 F Pulse Rate 74 75 Respiratory 18 18 22 Rate Blood Pressure 134/86 120/83 129/98 O2 Sat by Pulse 97 94 L 97 Oximetry Medical Decision Making - Lab Data Result diagrams: 01/01/20 14:25 01/01/20 14:25 Lab Results 01/01/20 01/01/20 01/01/20 Range/Units 13:25 14:25 14:25 WBC 14.2 H (3.8-10.6) k/uL RBC 4.91 (4.30-5.90) m/uL Hgb 14.3 (13.0-17.5) gm/dL Hct 42.9 (39.0-53.0) % MCV 87.3 (80.0-100.0) fL MCH 29.0 (25.0-35.0) pg MCHC 33.2 (31.0-37.0) g/dL RDW 14.3 (11.5-15.5) % Plt Count 362 (150-450) k/uL Neutrophils % 80 % Lymphocytes % 10 % Monocytes % 6 % Eosinophils % 2 % Basophils % 1 % Neutrophils # 11.3 H (1.3-7.7) k/uL Lymphocytes # 1.5 (1.0-4.8) k/uL Monocytes # 0.9 (0-1.0) k/uL Eosinophils # 0.2 (0-0.7) k/uL Basophils # 0.1 (0-0.2) k/uL PT (9.0-12.0) sec INR (<1.2) APTT (22.0-30.0) sec Sodium 139 (137-145) mmol/L Potassium 4.3 (3.5-5.1) mmol/L Chloride 108 H (98-107) mmol/L Carbon Dioxide 25 (22-30) mmol/L Anion Gap 6 mmol/L BUN 12 (9-20) mg/dL Creatinine 0.79 (0.66-1.25) mg/dL Est GFR (CKD-EPI)AfAm >90 (>60 ml/min/1.73 sqM) Est GFR (CKD-EPI)NonAf >90 (>60 ml/min/1.73 sqM) Glucose 99 (74-99) mg/dL Calcium 8.8 (8.4-10.2) mg/dL Urine Color Dark Brown Urine Appearance Cloudy (Clear) Urine pH 5.5 (5.0-8.0) Ur Specific [place] 1.026 (1.001-1.035) Urine Protein 2+ H (Negative) Urine Glucose (UA) Negative (Negative) Urine Ketones Negative (Negative) Urine Blood Large H (Negative) Urine Nitrite Negative (Negative) Urine Bilirubin Negative (Negative) Urine Urobilinogen <2.0 (<2.0) mg/dL Ur Leukocyte Esterase Small H (Negative) Urine RBC >182 H (0-5) /hpf Urine WBC 11 H (0-5) /hpf Ur Squamous Epith Cells 1 (0-4) /hpf Urine Mucus Many H (None) /hpf Urine Yeast (Budding) Rare H (None) /hpf 01/01/20 Range/Units 14:25 WBC (3.8-10.6) k/uL RBC (4.30-5.90) m/uL Hgb (13.0-17.5) gm/dL Hct (39.0-53.0) % MCV (80.0-100.0) fL MCH (25.0-35.0) pg MCHC (31.0-37.0) g/dL RDW (11.5-15.5) % Plt Count (150-450) k/uL Neutrophils % % Lymphocytes % % Monocytes % % Eosinophils % % Basophils % % Neutrophils # (1.3-7.7) k/uL Lymphocytes # (1.0-4.8) k/uL Monocytes # (0-1.0) k/uL Eosinophils # (0-0.7) k/uL Basophils # (0-0.2) k/uL PT 9.8 (9.0-12.0) sec INR 0.9 (<1.2) APTT 25.5 (22.0-30.0) sec Sodium (137-145) mmol/L Potassium (3.5-5.1) mmol/L Chloride (98-107) mmol/L Carbon Dioxide (22-30) mmol/L Anion Gap mmol/L BUN (9-20) mg/dL Creatinine (0.66-1.25) mg/dL Est GFR (CKD-EPI)AfAm (>60 ml/min/1.73 sqM) Est GFR (CKD-EPI)NonAf (>60 ml/min/1.73 sqM) Glucose (74-99) mg/dL Calcium (8.4-10.2) mg/dL Urine Color Urine Appearance (Clear) Urine pH (5.0-8.0) Ur Specific [place] (1.001-1.035) Urine Protein (Negative) Urine Glucose (UA) (Negative) Urine Ketones (Negative) Urine Blood (Negative) Urine Nitrite (Negative) Urine Bilirubin (Negative) Urine Urobilinogen (<2.0) mg/dL Ur Leukocyte Esterase (Negative) Urine RBC (0-5) /hpf Urine WBC (0-5) /hpf Ur Squamous Epith Cells (0-4) /hpf Urine Mucus (None) /hpf Urine Yeast (Budding) (None) /hpf Disposition Clinical Impression: Kidney stone Disposition: HOME SELF-CARE Condition: Good Instructions (If sedation given, give patient instructions): Kidney Stones (ED) Is patient prescribed a controlled substance at d/c from ED?: No Referrals: Mata Hayes MD [Primary Care Provider] - 1-2 days Larry Dietz MD [STAFF PHYSICIAN] - 1-2 days Time of Disposition: 17:01
--- NOTE | 2020-01-01 14:30 | US ---
EXAMINATION TYPE: US scrotum with doppler. Grayscale and color Doppler Duplex imaging performed of jorje schuster scrotum. DATE OF EXAM: 01/01/2020 COMPARISON: NONE CLINICAL HISTORY: testicular pain. Right testicle surgically absent. History of testicular cancer in 2007. Peeing blood. Left lower abdominal pain, testicular pain EXAM MEASUREMENTS: TESTICLES: Right Testicle: Surgically absent Left Testicle: 3.9 x 2.6 x 3.0 cm EPIDIDYMIS HEAD: Right Epididymis: Surgically absent Left Epididymis: 0.8 cm Doppler performed to assess for testicular vascularity; good unilateral color flow and waveforms are seen. There is no evidence of testicular torsion. Presence of hydroceles: No Presence of varicoceles: No IMPRESSION: Surgical absence of the right testicle. The left testicle is free of torsion or mass.
[2020-01-01 14:31] LABS: Basophils # (A) 0.1 k/uL (0-0.2); Basophils % (A) 1 %; Eosinophils # (A) 0.2 k/uL (0-0.7); Eosinophils % (A) 2 %; HCT 42.9 % (39.0-53.0); HGB 14.3 gm/dL (13.0-17.5); Lymphocytes # (A) 1.5 k/uL (1.0-4.8); Lymphocytes % (A) 10 %; MCHC 33.2 g/dL (31.0-37.0); MCV 87.3 fL (80.0-100.0); Mean Platelet Volume 6.6; Monocytes # (A) 0.9 k/uL (0-1.0); Monocytes % (A) 6 %; Neutrophils # (A) 11.3 k/uL (1.3-7.7); Neutrophils % (A) 80 %; Platelet Count 362 k/uL (150-450); RBC 4.91 m/uL (4.30-5.90); RDW 14.3 % (11.5-15.5); WBC 14.2 k/uL (3.8-10.6)
[2020-01-01 14:40] LABS: African American GFR (CKD) >90 (>60 ml/min/1.73 sqM); Anion Gap 6 mmol/L; Blood Urea Nitrogen 12 mg/dL (9-20); Calcium 8.8 mg/dL (8.4-10.2); Carbon Dioxide 25 mmol/L (22-30); Chloride 108 mmol/L (98-107); Glucose 99 mg/dL (74-99); Non-African American GFR(CKD) >90 (>60 ml/min/1.73 sqM); Potassium 4.3 mmol/L (3.5-5.1); Sodium 139 mmol/L (137-145)
[2020-01-01] MEDS ORDERED: HYDROmorphone 0.5 MG/0.5 ML SYRINGE IVP STA (14:49)
[2020-01-01 14:54] LABS: INR 0.9 (<1.2); Partial Thromboplastin Time 25.5 sec (22.0-30.0); Prothrombin Time 9.8 sec (9.0-12.0)
--- NOTE | 2020-01-01 16:05 | CT ---
EXAMINATION TYPE: CT abdomen pelvis w con DATE OF EXAM: 01/01/2020 COMPARISON: 10/17/2018 HISTORY: LLQ pain CT DLP: 1935.9 mGycm Automated exposure control for dose reduction was used. TECHNIQUE: Helical acquisition of images was performed from the lung bases through the pelvis. CONTRAST: Performed without Oral Contrast and with IV Contrast, patient injected with 100 mL of Isovue 300. FINDINGS: LUNG BASES: Bibasilar subsegmental dependent atelectasis. LIVER/GB: Liver is low density although does not reach criteria for hepatic steatosis at this time. N o intrahepatic biliary duct dilatation seen. No radiopaque calculi in the gallbladder. PANCREAS: No significant abnormality is seen. SPLEEN: No significant abnormality is seen. ADRENALS: No significant abnormality is seen. KIDNEYS: There is a 4 mm calculus in the urinary bladder just distal to the left ureterovesicular song ction. Very mild left-sided hydronephrosis and delayed enhancement of the left kidney is seen with mi nimal perinephric fat stranding. Urachal remnant is also incidentally seen from the urinary bladder. No right-sided hydronephrosis. FREE AIR: No free air is visualized. No greater than 1 cm short axis lymph node is seen in the abdomen or pelvis. ADENOPATHY: Numerous surgical clips are seen in the retroperitoneum likely from prior lymph node dis section. OSSEOUS STRUCTURES: Punctate probable bone islands in the right femoral head and left femoral head a s well as posterior acetabulum bilaterally. These are unchanged from 2018. BOWEL: There is a small fluid-filled hiatal hernia. Fluid may be on the basis of gastroesophageal re flux. There are scattered colonic diverticula without pericolonic fat stranding. No dilated large or small bowel. Appendix is visualized, air-filled, and within normal limits. OTHER: Small fat filled ventral hernia. IMPRESSION: 1. MILD LEFT-SIDED HYDRONEPHROSIS SECONDARY TO A 4 MM CALCULUS IN THE URINARY BLADDER JUST DISTAL TO THE LEFT URETEROVESICULAR JUNCTION. 2. SMALL FLUID-FILLED HIATAL HERNIA. FLUID MAY BE ON THE BASIS OF GASTROESOPHAGEAL REFLUX.
[2020-01-01 16:15] VITALS: RESP 22
[2020-01-01] MEDS ORDERED: HYDROmorphone 1 MG/ML 1 ML SYRINGE IVP STA (16:22)
[2020-01-01] MEDS ORDERED: MAG HYDROX/AL HYDROX/SIMETH 30 ML, HYOSCYAMINE ELIXIR 10 ML, LIDOCAINE VISCOUS 2% 10 ML PO STA ×3 (17:00)
[2020-01-01 17:34] VITALS: BP 114/87; PULSE 68
== END 2020-01-01 17:32 | disposition home or self-care (01) ==
LOC: EC 13:16
DX: N13.2 Hydronephrosis with renal and ureteral calculous obstruction (principal); N50.812 Left testicular pain; K21.9 Gastro-esophageal reflux disease without esophagitis; G40.909 Epilepsy, unspecified, not intractable, without status epilepticus; F32.9 Major depressive disorder, single episode, unspecified; F41.9 Anxiety disorder, unspecified; F17.200 Nicotine dependence, unspecified, uncomplicated; Z88.5 Allergy status to narcotic agent; Z91.018 Allergy to other foods; Z79.899 Other long term (current) drug therapy; Z85.47 Personal history of malignant neoplasm of testis; Z90.79 Acquired absence of other genital organ(s); Z98.890 Other specified postprocedural states
CPT/HCPCS: 36415; 80048; 85025; 85610; 85730; 81001; 87086; 93976; 76870; 74177; 99284; 96374; 96375 ×2; 96376; 96361 ×3; J2270; J1885; J1170 ×2; Q9967

== ENCOUNTER 2021-04-12 16:34 | Emergency (ER) | payer MEDICARE, OTHER ==
[2021-04-12 16:39] VITALS: BP 116/82; PULSE 66; RESP 20; TEMP 97.9
--- NOTE | 2021-04-12 17:14 | ED ---
Skin/Abscess/FB HPI - General Chief complaint: Skin/Abscess/Foreign Body Stated complaint: mouth infection Time Seen by Provider: 04/12/21 16:55 Source: patient Mode of arrival: ambulatory Limitations: no limitations - History of Present Illness Initial comments: 35-year-old male presents to emergency Department with a chief complaint of pain on the face. Patient reports she developed a lesion several days ago that appeared to be a pimple. He states he been Picking at it and attempted to stab it with a needle. Patient reports she was only able to get blood out of but no pustular discharge. He denies any history of MRSA. Denies any fevers or chills. Denies any pain inside of the mouth. States it is only localized to the outside skin of the left side of the face. Denies any facial swelling - Related Data Home Medications Medication Instructions Recorded Confirmed Cetirizine HCl [Zyrtec] 10 mg PO DAILY 06/23/17 01/01/20 Omeprazole [PriLOSEC] 20 mg PO AC-BID 06/23/17 01/01/20 Ranitidine HCl [Zantac] 150 mg PO BID 06/23/17 01/01/20 Venlafaxine HCl [Effexor XR] 37.5 mg PO DAILY 06/23/17 01/01/20 Gabapentin 600 mg PO TID 10/17/18 01/01/20 Baclofen 10 mg PO TID PRN 01/01/20 01/01/20 Ondansetron Odt [Zofran Odt] 8 mg PO Q8HR PRN 01/01/20 01/01/20 Previous Rx's Medication Instructions Recorded Cephalexin [Keflex] 500 mg PO Q6HR #40 cap 04/12/21 Allergies Allergy/AdvReac Type Severity Reaction Status Date / Time black pepper Allergy Swelling Verified 04/12/21 16:39 tramadol AdvReac Nausea & Verified 04/12/21 16:39 Vomiting Review of Systems ROS Statement: Those systems with pertinent positive or pertinent negative responses have been documented in the HPI. ROS Other: All systems not noted in ROS Statement are negative. Past Medical History Past Medical History: Asthma, Cancer, GERD/Reflux, Seizure Disorder Additional Past Medical History / Comment(s): Testicular CA ,chronic back pain, SEIZURE -LAST ONE May. History of Any Multi-Drug Resistant Organisms: None Reported Past Surgical History: Back Surgery Additional Past Surgical History / Comment(s): testicular surgery, lymph node removal in abdomen Past Anesthesia/Blood Transfusion Reactions: Blood Transfusion Reaction, Motion Sickness Additional Past Anesthesia/Blood Transfusion Reaction / Comment(s): "WOKE UP DURING THE LYMPH NODE SURGERY, Past Psychological History: Anxiety, Depression Smoking Status: Current every day smoker Past Alcohol Use History: Occasional Past Drug Use History: Marijuana General Exam Limitations: no limitations General appearance: alert, in no apparent distress Head exam: Present: atraumatic, normocephalic, normal inspection Eye exam: Present: normal appearance, PERRL, EOMI Pupils: Present: normal accommodation ENT exam: Present: normal exam, normal oropharynx, mucous membranes moist, TM's normal bilaterally, normal external ear exam, other (Small lesion to the left si de of face. Appears to be a healing abscess likely.) Neck exam: Present: normal inspection, full ROM. Absent: tenderness Respiratory exam: Present: normal lung sounds bilaterally. Absent: respiratory distress, wheezes, rales, rhonchi, stridor, chest wall tenderness, accessory muscle use Cardiovascular Exam: Present: regular rate, normal rhythm, normal heart sounds. Absent: systolic murmur Extremities exam: Present: normal inspection, full ROM, normal capillary refill. Absent: tenderness, pedal edema, joint swelling Back exam: Present: normal inspection, full ROM. Absent: tenderness, CVA tenderness (R), CVA tenderness (L) Neurological exam: Present: alert, oriented X3 Psychiatric exam: Present: normal affect, normal mood Skin exam: Present: warm, dry, intact, normal color Course Vital Signs 04/12/21 16:37 Temperature 97.9 F Pulse Rate 66 Respiratory 20 Rate Blood Pressure 116/82 O2 Sat by Pulse 98 Oximetry Medical Decision Making - Medical Decision Making 35-year-old male presents emergency Department with a chief complaint of a lesion on the face. On physical examination, this appears to be healing abscess. There is very mild surrounding erythema. I will prescribe him some Keflex. No history of MRSA. Case discussed with physician. Disposition Clinical Impression: Lesion of face Disposition: HOME SELF-CARE Condition: Stable Instructions (If sedation given, give patient instructions): Abscess (ED) Additional Instructions: Please return to the Emergency Department if symptoms worsen or any other concerns. They prescribed medication as directed. Is patient prescribed a controlled substance at d/c from ED?: No Referrals: Mata Hayes MD [Primary Care Provider] - 1-2 days Time of Disposition: 17:10
[2021-04-12] MEDS ORDERED: CEPHALEXIN 500MG STARTER PACK 4 CAP BTL PO STA (17:42)
== END 2021-04-12 17:47 | disposition home or self-care (01) ==
LOC: EC 16:34
DX: L98.9 Disorder of the skin and subcutaneous tissue, unspecified (principal); J45.909 Unspecified asthma, uncomplicated; K21.9 Gastro-esophageal reflux disease without esophagitis; G40.909 Epilepsy, unspecified, not intractable, without status epilepticus; F32.9 Major depressive disorder, single episode, unspecified; F41.9 Anxiety disorder, unspecified; F17.200 Nicotine dependence, unspecified, uncomplicated; F12.90 Cannabis use, unspecified, uncomplicated; Z85.47 Personal history of malignant neoplasm of testis
CPT/HCPCS: 99283

== ENCOUNTER 2021-05-07 20:34 | Emergency (ER) | payer MEDICARE, OTHER ==
[2021-05-07] MEDS ORDERED: HYDROmorphone 1 MG/ML 1 ML SYRINGE IVP STA ×2 (21:39→22:47)
[2021-05-07] MEDS ORDERED: diphenhydrAMINE 50 MG/ML 1 ML VIAL IVP STA (21:39)
[2021-05-07] MEDS ORDERED: SODIUM CHLORIDE 0.9% 1,000 ML IV STA (21:39)
[2021-05-07] MEDS ORDERED: ONDANSETRON 4 MG/2 ML VIAL IVP STA (21:39)
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
[2021-05-07 22:19] LABS: Basophils # (A) 0.1 k/uL (0-0.2); Basophils % (A) 1 %; Eosinophils # (A) 0.3 k/uL (0-0.7); Eosinophils % (A) 3 %; HCT 38.6 % (39.0-53.0); HGB 13.1 gm/dL (13.0-17.5); Lymphocytes # (A) 2.8 k/uL (1.0-4.8); Lymphocytes % (A) 32 %; MCH 29.4 pg (25.0-35.0); MCHC 33.9 g/dL (31.0-37.0); MCV 86.8 fL (80.0-100.0); Mean Platelet Volume 6.7; Monocytes # (A) 0.7 k/uL (0-1.0); Monocytes % (A) 8 %; Neutrophils # (A) 4.7 k/uL (1.3-7.7); Neutrophils % (A) 54 %; Platelet Count 403 k/uL (150-450); RBC 4.45 m/uL (4.30-5.90); WBC 8.8 k/uL (3.8-10.6)
[2021-05-07 22:35] LABS: ALT 23 U/L (4-49); AST 49 U/L (17-59); African American GFR (CKD) >90 (>60 ml/min/1.73 sqM); Albumin 4.3 g/dL (3.5-5.0); Alkaline Phosphatase 36 U/L (38-126); Anion Gap 5 mmol/L; Blood Urea Nitrogen 8 mg/dL (9-20); Calcium 9.4 mg/dL (8.4-10.2); Carbon Dioxide 27 mmol/L (22-30); Chloride 108 mmol/L (98-107); Glucose 81 mg/dL (74-99); Non-African American GFR(CKD) >90 (>60 ml/min/1.73 sqM); Sodium 140 mmol/L (137-145); Total Protein 7.1 g/dL (6.3-8.2)
[2021-05-07 22:41] LABS: Potassium 5.6 mmol/L (3.5-5.1)
[2021-05-07 22:46] LABS: Partial Thromboplastin Time 25.5 sec (22.0-30.0); Prothrombin Time 10.4 sec (9.0-12.0)
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
[2021-05-07 23:01] LABS: Appearance,Urine Clear (Clear); Bilirubin,Urine Negative (Negative); Blood,Urine Negative (Negative); Color,Urine Yellow; Glucose,Urine (UA) Negative (Negative); Ketones,Urine Negative (Negative); Leukocyte Esterase,Urine Negative (Negative); Nitrite,Urine Negative (Negative); PH, Urine 6.5 (5.0-8.0); Protein,Urine Negative (Negative); Specific Gravity,Urine 1.022 (1.001-1.035)
[2021-05-08 01:07] VITALS: BP 126/86; PULSE 57; RESP 20; TEMP 98.2
== END 2021-05-08 00:25 | disposition home or self-care (01) ==
LOC: EC 20:34
DX: G43.909 Migraine, unspecified, not intractable, without status migrainosus (principal); M54.2 Cervicalgia; J45.909 Unspecified asthma, uncomplicated; G40.909 Epilepsy, unspecified, not intractable, without status epilepticus; K21.9 Gastro-esophageal reflux disease without esophagitis; F41.9 Anxiety disorder, unspecified; F32.9 Major depressive disorder, single episode, unspecified; F17.200 Nicotine dependence, unspecified, uncomplicated; F12.90 Cannabis use, unspecified, uncomplicated; Z85.47 Personal history of malignant neoplasm of testis; Z79.899 Other long term (current) drug therapy; Z88.8 Allergy status to other drugs, medicaments and biological substances; Z88.5 Allergy status to narcotic agent
CPT/HCPCS: 36415; 80053; 85025; 85610; 85730; 81003; 72125; 70450; 99284; 96374; 96375 ×2; 96376; 96361; J1200; J2405; J1170

== ENCOUNTER 2021-09-03 22:36 | Emergency (ER) | payer MEDICARE, OTHER ==
[2021-09-03 22:45] VITALS: TEMP 98.1
[2021-09-03] MEDS ORDERED: SODIUM CHLORIDE 0.9% 1,000 ML IV ONE (23:12)
[2021-09-03 23:34] LABS: Basophils # (A) 0.1 k/uL (0-0.2); Basophils % (A) 1 %; Eosinophils # (A) 0.2 k/uL (0-0.7); Eosinophils % (A) 2 %; HCT 44.4 % (39.0-53.0); HGB 14.6 gm/dL (13.0-17.5); Lymphocytes # (A) 2.8 k/uL (1.0-4.8); Lymphocytes % (A) 25 %; MCH 28.3 pg (25.0-35.0); MCHC 32.9 g/dL (31.0-37.0); MCV 86.1 fL (80.0-100.0); Mean Platelet Volume 7.4; Monocytes # (A) 0.8 k/uL (0-1.0); Monocytes % (A) 8 %; Neutrophils % (A) 63 %; Platelet Count 392 k/uL (150-450); RBC 5.16 m/uL (4.30-5.90); RDW 14.5 % (11.5-15.5); WBC 11.1 k/uL (3.8-10.6)
--- NOTE | 2021-09-04 00:06 | XR ---
EXAMINATION TYPE: XR chest 2V DATE OF EXAM: 09/03/2021 COMPARISON: 02/04/2015 INDICATION: Weakness TECHNIQUE: Frontal and lateral views of the chest are obtained. FINDINGS: The heart size is normal. The pulmonary vasculature is normal. The lungs are clear. Nipple piercings present bilaterally IMPRESSION: 1. No acute pulmonary process.
[2021-09-04 00:30] LABS: Appearance,Urine Clear (Clear); Bilirubin,Urine Negative (Negative); Blood,Urine Negative (Negative); Color,Urine Yellow; Glucose,Urine (UA) Negative (Negative); Hyaline Casts,Urine 1 /lpf (0-2); Ketones,Urine 2+ (Negative); Leukocyte Esterase,Urine Trace (Negative); Mucus,Urine Many /hpf; Nitrite,Urine Negative (Negative); PH, Urine 6.5 (5.0-8.0); Protein,Urine Trace (Negative); RBC,Urine 2 /hpf (0-5); Specific Gravity,Urine 1.023 (1.001-1.035); Squamous Epithelial Cell,Urine <1 /hpf (0-4); WBC,Urine 3 /hpf (0-5)
[2021-09-04 00:32] LABS: Partial Thromboplastin Time 26.1 sec (22.0-30.0); Prothrombin Time 10.4 sec (9.0-12.0)
[2021-09-04 01:12] LABS: ALT 12 U/L (4-49); AST 27 U/L (17-59); African American GFR (CKD) >90 (>60 ml/min/1.73 sqM); Albumin 3.8 g/dL (3.5-5.0); Alkaline Phosphatase 51 U/L (38-126); Anion Gap 5 mmol/L; Blood Urea Nitrogen 10 mg/dL (9-20); Calcium 8.8 mg/dL (8.4-10.2); Carbon Dioxide 24 mmol/L (22-30); Chloride 108 mmol/L (98-107); Glucose 88 mg/dL (74-99); Non-African American GFR(CKD) >90 (>60 ml/min/1.73 sqM); Sodium 137 mmol/L (137-145); Total Bilirubin 0.7 mg/dL (0.2-1.3); Total Protein 6.6 g/dL (6.3-8.2)
[2021-09-04 01:16] LABS: Potassium 4.3 mmol/L (3.5-5.1)
--- NOTE | 2021-09-04 01:23 | ED ---
General Adult HPI - General Chief complaint: Allergic Reaction Stated complaint: Allergic Reaction Time Seen by Provider: 09/03/21 22:40 Source: patient, EMS Mode of arrival: EMS - History of Present Illness Initial comments: 36-year-old male presents to the emergency department with complaints of fatigue, sleepiness over the past week. Patient reports to me that he has been extremely sleepy over the past week. States that he will sleep several hours, wake up and feel like he needs to go right back to sleep again. He denies any fevers, chills, nausea or vomiting. No medication changes. Denies any head trauma. Denies any changes in his bowel or bladder habits. Does report to marijuana use. States that he will "take one hit" and it will make him sleepy. Patient also reports to some lip tingling. States he ate some sausage at his brother's house and was concerned that it may have pepper in it. Patient is ALLERGIC to black pepper. He denies any tongue swelling or sensation of his airway is closing off. EMS did give him 50 mg of Benadryl. No other allevia ting, precipitating or modifying factors - Related Data Home Medications Medication Instructions Recorded Confirmed Cetirizine HCl [Zyrtec] 10 mg PO DAILY 06/23/17 01/01/20 Omeprazole [PriLOSEC] 20 mg PO AC-BID 06/23/17 01/01/20 Ranitidine HCl [Zantac] 150 mg PO BID 06/23/17 01/01/20 Venlafaxine HCl [Effexor XR] 37.5 mg PO DAILY 06/23/17 01/01/20 Gabapentin 600 mg PO TID 10/17/18 01/01/20 Baclofen 10 mg PO TID PRN 01/01/20 01/01/20 Ondansetron Odt [Zofran Odt] 8 mg PO Q8HR PRN 01/01/20 01/01/20 Previous Rx's Medication Instructions Recorded Cephalexin [Keflex] 500 mg PO Q6HR #40 cap 04/12/21 Allergies Allergy/AdvReac Type Severity Reaction Status Date / Time black pepper Allergy Swelling Verified 05/07/21 20:58 tramadol AdvReac Nausea & Verified 05/07/21 20:58 Vomiting Review of Systems ROS Statement: Those systems with pertinent positive or pertinent negative responses have been documented in the HPI. ROS Other: All systems not noted in ROS Statement are negative. Past Medical History Past Medical History: Asthma, Cancer, GERD/Reflux, Seizure Disorder Additional Past Medical History / Comment(s): Testicular CA ,chronic back pain, SEIZURE -LAST ONE May. History of Any Multi-Drug Resistant Organisms: None Reported Past Surgical History: Back Surgery Additional Past Surgical History / Comment(s): testicular surgery, lymph node removal in abdomen Past Anesthesia/Blood Transfusion Reactions: Blood Transfusion Reaction, Motion Sickness Additional Past Anesthesia/Blood Transfusion Reaction / Comment(s): "WOKE UP DURING THE LYMPH NODE SURGERY, Past Psychological History: Anxiety, Depression Smoking Status: Current every day smoker Past Alcohol Use History: Occasional Past Drug Use History: Marijuana General Exam General appearance: alert, in no apparent distress Head exam: Present: atraumatic, normocephalic, normal inspection Eye exam: Present: normal appearance, PERRL, EOMI. Absent: scleral icterus, conjunctival injection, periorbital swelling ENT exam: Present: normal exam, mucous membranes moist, other (no appreciable facial swelling. No oral swelling) Neck exam: Present: normal inspection. Absent: tenderness, meningismus, lymp hadenopathy Respiratory exam: Present: normal lung sounds bilaterally. Absent: respiratory distress, wheezes, rales, rhonchi, stridor Cardiovascular Exam: Present: regular rate, normal rhythm, normal heart sounds. Absent: systolic murmur, diastolic murmur, rubs, gallop, clicks GI/Abdominal exam: Present: soft, normal bowel sounds. Absent: distended, tenderness, guarding, rebound, rigid Extremities exam: Present: normal inspection, full ROM, normal capillary refill. Absent: tenderness, pedal edema, joint swelling, calf tenderness Back exam: Present: normal inspection Neurological exam: Present: alert, oriented X3, CN II-XII intact Psychiatric exam: Present: normal affect, normal mood Skin exam: Present: warm, dry, intact, normal color. Absent: rash Course Vital Signs 09/03/21 09/03/21 09/04/21 22:38 23:09 01:40 Temperature 98.1 F Pulse Rate 68 77 Respiratory 20 20 16 Rate Blood Pressure 121/84 115/80 O2 Sat by Pulse 96 98 Oximetry EKG Findings - EKG Comments: EKG Findings:: EKG demonstrates sinus bradycardia with a ventricular rate of 59. NJ interval 136. QRS 84. QTC is 439. Some J-point elevation in the inferior leads. No reciprocal changes. Medical Decision Making - Medical Decision Making Upon arrival patient is placed into room 1. through history and physical exam was performed. IV is established. Laboratory studies were conducted. Patient has no visible signs of swelling. He does over for chest x-ray. Laboratory studies are reviewed and are within normal limits. D-dimer negative. TSH normal at 1.2. Troponin negative. Covid not detected. Chest x-ray demons trates no acute intrathoracic process. Results are discussed the patient. At this time the patient will be discharged home and needs to follow up with primary care doctor for further evaluation. May continue to take Benadryl every 6 hours for any type of lip tingling. Return to the emergency room for any new or worsening symptoms. Patient was discharged home stable condition - Lab Data Result diagrams: 09/03/21 23:21 09/04/21 00:27 Lab Results 09/03/21 09/03/21 09/03/21 Range/Units 23:21 23:21 23:21 WBC 11.1 H (3.8-10.6) k/uL RBC 5.16 (4.30-5.90) m/uL Hgb 14.6 (13.0-17.5) gm/dL Hct 44.4 (39.0-53.0) % MCV 86.1 (80.0-100.0) fL MCH 28.3 (25.0-35.0) pg MCHC 32.9 (31.0-37.0) g/dL RDW 14.5 (11.5-15.5) % Plt Count 392 (150-450) k/uL MPV 7.4 Neutrophils % 63 % Lymphocytes % 25 % Monocytes % 8 % Eosinophils % 2 % Basophils % 1 % Neutrophils # 7.0 (1.3-7.7) k/uL Lymphocytes # 2.8 (1.0-4.8) k/uL Monocytes # 0.8 (0-1.0) k/uL Eosinophils # 0.2 (0-0.7) k/uL Basophils # 0.1 (0-0.2) k/uL PT 10.4 (9.0-12.0) sec INR 1.0 (<1.2) APTT 26.1 (22.0-30.0) sec D-Dimer 0.25 (<0.60) mg/L FEU Sodium (137-145) mmol/L Potassium (3.5-5.1) mmol/L Chloride (98-107) mmol/L Carbon Dioxide (22-30) mmol/L Anion Gap mmol/L BUN (9-20) mg/dL Creatinine (0.66-1.25) mg/dL Est GFR (CKD-EPI)AfAm (>60 ml/min/1.73 sqM) Est GFR (CKD-EPI)NonAf (>60 ml/min/1.73 sqM) Glucose (74-99) mg/dL Plasma Lactic Acid [place] (0.7-2.0) mmol/L Calcium (8.4-10.2) mg/dL Total Bilirubin (0.2-1.3) mg/dL AST (17-59) U/L ALT (4-49) U/L Alkaline Phosphatase (38-126) U/L Troponin I (0.000-0.034) ng/mL Total Protein (6.3-8.2) g/dL Albumin (3.5-5.0) g/dL TSH (0.465-4.680) mIU/L Urine Color Yellow Urine Appearance Clear (Clear) Urine pH 6.5 (5.0-8.0) Ur Specific [place] 1.023 (1.001-1.035) Urine Protein Trace H (Negative) Urine Glucose (UA) Negative (Negative) Urine Ketones 2+ H (Negative) Urine Blood Negative (Negative) Urine Nitrite Negative (Negative) Urine Bilirubin Negative (Negative) Urine Urobilinogen 2.0 (<2.0) mg/dL Ur Leukocyte Esterase Trace H (Negative) Urine RBC 2 (0-5) /hpf Urine WBC 3 (0-5) /hpf Ur Squamous Epith Cells <1 (0-4) /hpf Hyaline Casts 1 (0-2) /lpf Urine Mucus Many H (None) /hpf Coronavirus (PCR) (Not Detectd) 09/03/21 09/03/21 09/03/21 Range/Units 23:21 23:21 23:21 WBC (3.8-10.6) k/uL RBC (4.30-5.90) m/uL Hgb (13.0-17.5) gm/dL Hct (39.0-53.0) % MCV (80.0-100.0) fL MCH (25.0-35.0) pg MCHC (31.0-37.0) g/dL RDW (11.5-15.5) % Plt Count (150-450) k/uL MPV Neutrophils % % Lymphocytes % % Monocytes % % Eosinophils % % Basophils % % Neutrophils # (1.3-7.7) k/uL Lymphocytes # (1.0-4.8) k/uL Monocytes # (0-1.0) k/uL Eosinophils # (0-0.7) k/uL Basophils # (0-0.2) k/uL PT (9.0-12.0) sec INR (<1.2) APTT (22.0-30.0) sec D-Dimer (<0.60) mg/L FEU Sodium (137-145) mmol/L Potassium (3.5-5.1) mmol/L Chloride (98-107) mmol/L Carbon Dioxide (22-30) mmol/L Anion Gap mmol/L BUN (9-20) mg/dL Creatinine (0.66-1.25) mg/dL Est GFR (CKD-EPI)AfAm (>60 ml/min/1.73 sqM) Est GFR (CKD-EPI)NonAf (>60 ml/min/1.73 sqM) Glucose (74-99) mg/dL Plasma Lactic Acid [place] 1.0 (0.7-2.0) mmol/L Calcium (8.4-10.2) mg/dL Total Bilirubin (0.2-1.3) mg/dL AST (17-59) U/L ALT (4-49) U/L Alkaline Phosphatase (38-126) U/L Troponin I <0.012 (0.000-0.034) ng/mL Total Protein (6.3-8.2) g/dL Albumin (3.5-5.0) g/dL TSH (0.465-4.680) mIU/L Urine Color Urine Appearance (Clear) Urine pH (5.0-8.0) Ur Specific [place] (1.001-1.035) Urine Protein (Negative) Urine Glucose (UA) (Negative) Urine Ketones (Negative) Urine Blood (Negative) Urine Nitrite (Negative) Urine Bilirubin (Negative) Urine Urobilinogen (<2.0) mg/dL Ur Leukocyte Esterase (Negative) Urine RBC (0-5) /hpf Urine WBC (0-5) /hpf Ur Squamous Epith Cells (0-4) /hpf Hyaline Casts (0-2) /lpf Urine Mucus (None) /hpf Coronavirus (PCR) Not Detected (Not Detectd) 09/04/21 Range/Units 00:27 WBC (3.8-10.6) k/uL RBC (4.30-5.90) m/uL Hgb (13.0-17.5) gm/dL Hct (39.0-53.0) % MCV (80.0-100.0) fL MCH (25.0-35.0) pg MCHC (31.0-37.0) g/dL RDW (11.5-15.5) % Plt Count (150-450) k/uL MPV Neutrophils % % Lymphocytes % % Monocytes % % Eosinophils % % Basophils % % Neutrophils # (1.3-7.7) k/uL Lymphocytes # (1.0-4.8) k/uL Monocytes # (0-1.0) k/uL Eosinophils # (0-0.7) k/uL Basophils # (0-0.2) k/uL PT (9.0-12.0) sec INR (<1.2) APTT (22.0-30.0) sec D-Dimer (<0.60) mg/L FEU Sodium 137 (137-145) mmol/L Potassium 4.3 (3.5-5.1) mmol/L Chloride 108 H (98-107) mmol/L Carbon Dioxide 24 (22-30) mmol/L Anion Gap 5 mmol/L BUN 10 (9-20) mg/dL Creatinine 0.69 (0.66-1.25) mg/dL Est GFR (CKD-EPI)AfAm >90 (>60 ml/min/1.73 sqM) Est GFR (CKD-EPI)NonAf >90 (>60 ml/min/1.73 sqM) Glucose 88 (74-99) mg/dL Plasma Lactic Acid [place] (0.7-2.0) mmol/L Calcium 8.8 (8.4-10.2) mg/dL Total Bilirubin 0.7 (0.2-1.3) mg/dL AST 27 (17-59) U/L ALT 12 (4-49) U/L Alkaline Phosphatase 51 (38-126) U/L Troponin I (0.000-0.034) ng/mL Total Protein 6.6 (6.3-8.2) g/dL Albumin 3.8 (3.5-5.0) g/dL TSH 1.200 (0.465-4.680) mIU/L Urine Color Urine Appearance (Clear) Urine pH (5.0-8.0) Ur Specific [place] (1.001-1.035) Urine Protein (Negative) Urine Glucose (UA) (Negative) Urine Ketones (Negative) Urine Blood (Negative) Urine Nitrite (Negative) Urine Bilirubin (Negative) Urine Urobilinogen (<2.0) mg/dL Ur Leukocyte Esterase (Negative) Urine RBC (0-5) /hpf Urine WBC (0-5) /hpf Ur Squamous Epith Cells (0-4) /hpf Hyaline Casts (0-2) /lpf Urine Mucus (None) /hpf Coronavirus (PCR) (Not Detectd) Disposition Clinical Impression: Allergic reaction, Weakness Disposition: HOME SELF-CARE Condition: Stable Instructions (If sedation given, give patient instructions): Fatigue (ED), General Allergic Reaction (ED) Additional Instructions: Please take Benadryl as needed for lip swelling. Follow up with your primary care doctor in regards to further testing. Return to the emergency for any new or worsening symptoms Is patient prescribed a controlled substance at d/c from ED?: No Referrals: Mata Hayes MD [Primary Care Provider] - 1-2 days Time of Disposition: 01:23
[2021-09-04 01:41] VITALS: BP 115/80; PULSE 77; RESP 16
== END 2021-09-04 01:41 | disposition home or self-care (01) ==
LOC: EC 22:36
DX: T78.1XXA Other adverse food reactions, not elsewhere classified, initial encounter (principal); R53.1 Weakness; J45.909 Unspecified asthma, uncomplicated; K21.9 Gastro-esophageal reflux disease without esophagitis; F41.9 Anxiety disorder, unspecified; F32.9 Major depressive disorder, single episode, unspecified; F17.200 Nicotine dependence, unspecified, uncomplicated; F12.90 Cannabis use, unspecified, uncomplicated; Z20.822 Contact with and (suspected) exposure to COVID-19; Z88.1 Allergy status to other antibiotic agents; Z85.47 Personal history of malignant neoplasm of testis
CPT/HCPCS: 36415; 71046; 80053; 81001; 83605; 84443; 84484; 85025; 85379; 85610; 85730; 87635; 93005; 96360; 99285

== ENCOUNTER 2021-11-16 14:37 | Emergency (ER) | payer MEDICARE, OTHER ==
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
[2021-11-16 16:09] VITALS: BP 109/77; PULSE 74; RESP 18; TEMP 98.2
== END 2021-11-16 16:09 | disposition home or self-care (01) ==
LOC: EC 14:37
DX: U07.1 COVID-19 (principal); J45.909 Unspecified asthma, uncomplicated; K21.9 Gastro-esophageal reflux disease without esophagitis; F41.9 Anxiety disorder, unspecified; F32.A Depression, unspecified; F17.200 Nicotine dependence, unspecified, uncomplicated; F12.90 Cannabis use, unspecified, uncomplicated; Z88.1 Allergy status to other antibiotic agents; Z85.47 Personal history of malignant neoplasm of testis
CPT/HCPCS: 87635; 99285

== ENCOUNTER → 2024-09-07 | Outpatient (CLI) | payer MEDICARE, OTHER ==
--- NOTE | 2024-09-10 08:17 | US ---
EXAMINATION TYPE: US abdomen complete DATE OF EXAM: 09/07/2024 COMPARISON: 01/01/2020 CLINICAL INDICATION: Male, 39 years old with history of R10.11 RIGHT UPPER QUADRANT PAIN; Hx testicul ar cancer with lymph node removal. TECHNIQUE: Grayscale and color Doppler imaging of the abdomen was performed. FINDINGS: EXAM MEASUREMENTS: Liver Length: 15.4 cm Gallbladder Wall: 0.2 cm CBD: 0.2 cm Spleen: 9.3 cm Right Kidney: 10.5 x 5.4 x 5.7 cm Left Kidney: 11.6 x 7.0 x 5.8 cm [employer] NOTES: Pancreas: wnl Liver: wnl Gallbladder: wnl Evidence for sonographic Boykin's sign: No CBD: wnl Spleen: wnl Right Kidney: wnl Left Kidney: wnl Upper IVC: wnl Abd Aorta: wnl The liver is homogenous. The intrahepatic portion of the IVC and proximal abdominal aorta are within normal limits. There is no evidence of cholelithiasis. Common bile duct is unremarkable. The visu alized portions of the pancreas are homogenous. The spleen is unremarkable. Kidneys are symmetric a nd free of hydronephrosis. No renal lesions are seen. IMPRESSION: No ultrasound evidence for an acute abdominal process. [facility], , 09/10/2024 8:15 AM
== END | disposition home or self-care (01) ==
LOC: RADUSWWP 16:04
PROVIDERS: ATTEND Family Medicine
CPT/HCPCS: 76700

== ENCOUNTER 2024-09-09 22:26 | Emergency (ER) | payer MEDICARE, OTHER ==
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
[2024-09-09] MEDS: IBUPROFEN 600 MG TAB PO STA (23:52)
[2024-09-10] MEDS: BACITRACIN ZINC 500 UNIT/GM OINT 28.4 GM TUBE TOPICAL ONE (00:51)
[2024-09-10] MEDS: IBUPROFEN 600 MG STARTER PACK 4 TAB BTL PO STA (00:51)
[2024-09-10 01:03] VITALS: BP 154/90; PULSE 65; RESP 16; TEMP 97.7
== END 2024-09-10 00:55 | disposition home or self-care (01) ==
LOC: EC 22:26
CPT/HCPCS: 29125; 99283

== ENCOUNTER 2024-09-16 21:41 | Observation (INO) | payer MEDICARE, OTHER ==
[2024-09-16] MEDS: MULTIVITAMINS, THERA 1 EACH TAB PO STA (22:12)
[2024-09-16] MEDS: diazePAM 5 MG TAB PO STA (22:12)
[2024-09-16] MEDS: KETOROLAC 15 MG/ML 1 ML VIAL IVP STA (22:13)
[2024-09-16] MEDS: FAMOTIDINE 20 MG/2 ML VIAL IV STA (22:13)
[2024-09-16] MEDS: ONDANSETRON 4 MG/2 ML VIAL IVP STA ×2 (22:14→23:36)
[2024-09-16 22:16] LABS: Basophils # (A) 0.1 k/uL (0-0.2); Basophils % (A) 1 %; Eosinophils # (A) 0.4 k/uL (0-0.7); Eosinophils % (A) 3 %; HCT 42.1 % (39.0-53.0); HGB 13.1 gm/dL (13.0-17.5); Hypochromasia Slight; Lymphocytes # (A) 2.2 k/uL (1.0-4.8); Lymphocytes % (A) 16 %; MCH 27.1 pg (25.0-35.0); MCHC 31.2 g/dL (31.0-37.0); MCV 86.9 fL (80.0-100.0); Mean Platelet Volume 6.8; Monocytes % (A) 7 %; Neutrophils % (A) 72 %; Platelet Count 473 k/uL (150-450); RBC 4.84 m/uL (4.30-5.90); RDW 15.8 % (11.5-15.5); WBC 13.8 k/uL (3.8-10.6)
[2024-09-16] MEDS: SODIUM CHLORIDE 0.9% 1,000 ML IV STA (22:17)
[2024-09-16] MEDS: THIAMINE 100 MG/ML 2 ML VIAL IM STA (22:17)
[2024-09-16] MEDS: MAG HYDROX/AL HYDROX/SIMETH 30 ML, HYOSCYAMINE ELIXIR 10 ML, LIDOCAINE VISCOUS 2% 10 ML PO STA (22:19)
--- NOTE | 2024-09-16 22:20 | ED ---
Alcohol HPI - General Chief Complaint: Alcohol Stated Complaint: ETOH Time Seen by Provider: 09/16/24 21:47 Source: patient, EMS Mode of arrival: EMS - History of Present Illness Initial Comments: Patient is a 39-year-old male with past medical history of alcoholism presenting today for concerns of alcohol withdrawal. Patient states that he drinks a gallon of whiskey a day last drink was yesterday morning. He decided to stop drinking for his 11-year-old son. He states today began having nausea, vomiting and anxiety this morning. States feeling tremulous and like he can't sit still. Endorses abdominal pain, 3 episodes NBNB emesis, dark diarrhea, no hematochezia. Denies illcit drug use. Endorses seeing intermittent small spots and double vision otherwise denies auditory or tactile disturbances/hallucinations. Now mild nausea. Headache. Feels tingling in his palms intermittently but otherwise denies numbness and weakness of the extremities. States just prior to arrival he began feeling very anxious, hyperventilating which made him feel short of breath and then noted sharp left-sided chest pain with inspiration. Patient has no history of CAD, patient's father did have a stroke though he is unsure of what age. No history hypertension hyperlipidemia or diabetes. He has never been through alcohol withdrawal before, no history of alcohol withdrawal seizures. - Related Data Home Medications Medication Instructions Recorded Confirmed Omeprazole [PriLOSEC] 20 mg PO BID 06/23/17 09/17/24 Venlafaxine HCl ER [Effexor XR] 300 mg PO DAILY 09/17/24 09/17/24 Previous Rx's Medication Instructions Recorded Thiamine [Vitamin B-1] 100 mg PO DAILY #30 tab 09/18/24 Allergies Allergy/AdvReac Type Severity Reaction Status Date / Time black pepper Allergy Swelling Verified 09/17/24 08:40 sulfamethoxazole Allergy Rash/Hives Verified 09/17/24 08:40 [From Bactrim] tramadol Allergy Rash/Hives Verified 09/17/24 08:40 trimethoprim [From Bactrim] Allergy Rash/Hives Verified 09/17/24 08:40 Review of Systems ROS Statement: Those systems with pertinent positive or pertinent negative responses have been documented in the HPI. ROS Other: All systems not noted in ROS Statement are negative. Past Medical History Past Medical History: Asthma, Cancer, GERD/Reflux, Seizure Disorder Additional Past Medical History / Comment(s): Testicular CA ,chronic back pain, SEIZURE -LAST ONE May. History of Any Multi-Drug Resistant Organisms: None Reported Past Surgical History: Back Surgery Additional Past Surgical History / Comment(s): testicular surgery, lymph node removal in abdomen Past Anesthesia/Blood Transfusion Reactions: Blood Transfusion Reaction, Motion Sickness Additional Past Anesthesia/Blood Transfusion Reaction / Comment(s): "WOKE UP DURING THE LYMPH NODE SURGERY, Past Psychological History: Anxiety, Depression Smoking Status: Current every day smoker Past Alcohol Use History: Occasional Past Drug Use History: Marijuana General Exam - General Exam Comments Initial Comments: PE: CONSTITUTIONAL: No apparent distress, overall well-appearing though uncomfortable SKIN: Warm, dry, no jaundice, hives or petechiae EYES: Pupils are equally round, extraocular movements intact without nystagmus, clear conjunctiva, non-icteric sclera HENT: Normocephalic, atraumatic, I mucus membranes, oropharynx clear without exudates NECK: , Full range of motion, normal appearance PULMONARY: Clear to auscultation without wheezes, rhonchi, or rales, normal excursion, no accessory muscle use and no stridor CARDIOVASCULAR: Regular rate, rhythm, normal S1 and S2. No appreciated murmurs, rubs or gallops. Strong radial pulses with intact distal perfusion. No lower extremity edema GASTROINTESTINAL: Soft, active bowel sounds throughout, nontender, non- distended, no palpable masses, no hernias no rebound or guarding. No hepatosplenomegaly MUSCULOSKELETAL: Extremities have no gross deformity, no edema, redness, or swelling. No calf swelling NEUROLOGIC:_a/o x 3, GCS 15, normal mentation and speech. Moves all extremities x 4 without motor or sensory deficit. 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 He states that he is still somewhat restless and has difficulty lying still. Though does endorse improvement of headache and double vision. On repeat abdominal exam abdomen is soft and nont eduard throughout though patient does endorse persistent abdominal pain. Will treat with morphine, Zofran, will give additional 1 mg IV Ativan due to persistent restlessness. Anticipate admission. 09/16/24 23:28 Medical Decision Making - Medical Decision Making Was pt. sent in by a medical professional or institution (, PA, CLINICAL SERVICES SPECIALIST, urgent care, hospital, or residential...) When possible be specific @ -No Did you speak to anyone other than the patient for history (EMS, parent, family, police, friend...)? What history was obtained from this source @ -No Did you review nursing and triage notes (agree or disagree)? Why? @ -I reviewed and agree with nursing and triage notes Were old charts reviewed (outside hosp., previous admission, EMS record, old EKG, old radiological studies, urgent care reports/EKG's, residential records)? Report findings @Medical records reviewed, patient presented to this emergency department on 09/09/2024 for generalized body aches after falling on gravel. Differential Diagnosis (chest pain, altered mental status, abdominal pain women, abdominal pain men, vaginal bleeding, weakness, fever, dyspnea, syncope, headache, dizziness, GI bleed, back pain, seizure, CVA, palpatations, mental health, musculoskeletal)? @ Differential diagnosis remains broad however top considerations include alcohol withdrawal, alcohol desiccation, drug intoxication or withdrawal, anxiety, other psychiatric disorder; In regards to N/V/Abdominal pain, top considerations include pancreatitis, cholecystitis, GERD, PUD, bowel obstruction, appendicits, hepatitis, this is not all inclusive list. Abdominal exam is benign, abdomen soft and nontender, no palpable masses or guarding, active bowel sounds, for this reason I do not feel additional imaging indicated at this point. EKG interpreted by me (3pts min.). @Sinus rhythm with respiratory variation, rate 86 bpm, FL interval 136 ms, QRS duration 89 ms, QT/QTc 376/393 ms, normal axis, no ST elevations or depressions, Compared to EKG performed on 09/03/2021, no significant changes from prior X-rays interpreted by me (1pt min.). @No cardiomegaly, consolidations or pneumothorax CT interpreted by me (1pt min.). @ -None done U/S interpreted by me (1pt. min.). @ -None done What testing was considered but not performed or refused? (CT, X-rays, U/S, labs)? Why? @ -I did consider CT abdomen however patient's symptoms consistent with alcohol induced pancreatitis, abdominal exam is benign What meds were considered but not given or refused? Why? @ -None Did you discuss the management of the patient with other professionals (professionals i.e. , PA, CLINICAL SERVICES SPECIALIST, lab, RT, psych nurse, social media designer, plastic block boiler reliner, teacher, community service officer, wrapper caser)? Give summary @ -No Was smoking cessation discussed for >3mins.? @ -No Was critical care preformed (if so, how long)? @ -Yes 35 minutes Were there social determinants of health that impacted care today? How? (Homelessness, low income, unemployed, alcoholism, drug addiction, transportation, low edu. Level, literacy, decrease access to med. care, custodial, rehab)? @ Alcoholism Was there de-escalation of care discussed even if they declined (Discuss DNR or withdrawal of care, Hospice)? @ -No What co-morbidities impacted this encounter? (DM, HTN, Smoking, COPD, CAD, Cancer, CVA, ARF, Chemo, Hep., AIDS, mental health diagnosis, sleep apnea, morbid obesity)? @ -Alcoholism Was patient admitted / discharged? Hospital course, mention meds given and route, prescriptions, significant lab abnormalities, going to OR and other perti nent info. @Admission- Patient is a 39-year-old gentleman past medical history of alcoholism, drinks 1 gallon of alcohol a day last drink was yesterday morning. Presenting for nausea, restlessness in his legs, abdominal pain. Did note that he felt anxious and felt he is hyperventilating prior to coming in and with the sensation felt short of breath and sharp chest pain with deep inspiration. Shortness of breath has since resolved. CIWA 14. Patient is hoping to get back to [place] tonight so will trial oral medication to see if symptoms can be controlled and patient could potentially be discharged. In addition we will obtain competence of labs, amylase lipase, urinalysis, alcohol level, single troponin due to earlier chest pain, x-ray, BNP, IV fluids, will give multivitamin folic acid and thiamine. Toradol for CP with inspiration. Pt agreeable with POC. Reviewed patient's labs thus far, significant for mild leukocytosis white blood cell count 13.8, phosphorus elevated 4.9, amylase 124, lipase 728 consistent with pancreatitis LFTs within normal limits suspect alcohol induced pancreatitis. Reassessed pt, appears more comfortable, endosres some mild improvement in sympt oms though still restless. Abdomen remains soft and nontender on re exam. At this point anticipate admission. Patient is agreeable to this. On reassessment patient is sleeping comfortably. Discussed with Dr. Aranda admission for alcohol withdrawal pancreatitis. He kindly accepts for admission. Pt admitted in stable condition. Undiagnosed new problem with uncertain prognosis? @ -No Drug Therapy requiring intensive monitoring for toxicity (Heparin, Nitro, Insulin, Cardizem)? @ -No Were any procedures done? @ -No Diagnosis/symptom? @ -Alcohol withdrawal, pancreatitis Acute, or Chronic, or Acute on Chronic? @ -Acute Uncomplicated (without systemic symptoms) or Complicated (systemic symptoms)? @Complicated Side effects of treatment? @ -No Exacerbation, Progression, or Severe Exacerbation? @ -No Poses a threat to life or bodily function? How? (Chest pain, USA, ME, pneumonia, PE, COPD, DKA, ARF, appy, cholecystitis, CVA, Diverticulitis, Homicidal, Suicidal, threat to staff... and all critical care pts) @Yes if progresses untreated could deteriorate into delirium tremens - Lab Data Result diagrams: 09/17/24 06:19 09/17/24 06:19 Lab Results 09/16/24 09/16/24 09/16/24 Range/Units 22:01 22:08 22:08 WBC 13.8 H (3.8-10.6) k/uL RBC 4.84 (4.30-5.90) m/uL Hgb 13.1 (13.0-17.5) gm/dL Hct 42.1 (39.0-53.0) % MCV 86.9 (80.0-100.0) fL MCH 27.1 (25.0-35.0) pg MCHC 31.2 (31.0-37.0) g/dL RDW 15.8 H (11.5-15.5) % Plt Count 473 H (150-450) k/uL MPV 6.8 Neutrophils % 72 % Lymphocytes % 16 % Monocytes % 7 % Eosinophils % 3 % Basophils % 1 % Neutrophils # 10.0 H (1.3-7.7) k/uL Lymphocytes # 2.2 (1.0-4.8) k/uL Monocytes # 1.0 (0-1.0) k/uL Eosinophils # 0.4 (0-0.7) k/uL Basophils # 0.1 (0-0.2) k/uL Hypochromasia Slight PT 10.2 (10.0-12.5) sec INR 0.9 (<1.2) APTT (22.0-30.0) sec Sodium (137-145) mmol/L Potassium (3.5-5.1) mmol/L Chloride (98-107) mmol/L Carbon Dioxide (22-30) mmol/L Anion Gap mmol/L BUN (9-20) mg/dL Creatinine (0.66-1.25) mg/dL Est GFR (CKD-EPI)AfAm (>60 ml/min/1.73 sqM) Est GFR (CKD-EPI)NonAf (>60 ml/min/1.73 sqM) Glucose (74-99) mg/dL Calcium (8.4-10.2) mg/dL Phosphorus (2.5-4.5) mg/dL Magnesium (1.6-2.3) mg/dL Total Bilirubin (0.2-1.3) mg/dL AST (17-59) U/L ALT (4-49) U/L Alkaline Phosphatase (38-126) U/L Troponin I <0.012 (0.000-0.034) ng/mL NT-Pro-B Natriuret Pep pg/mL Total Protein (6.3-8.2) g/dL Albumin (3.5-5.0) g/dL Amylase (30-110) U/L Lipase (23-300) U/L Urine Opiates Screen (NotDetected) Ur Oxycodone Screen (NotDetected) Urine Methadone Screen (NotDetected) Ur Barbiturates Screen (NotDetected) U Tricyclic Antidepress (NotDetected) Ur Phencyclidine Scrn (NotDetected) Ur Amphetamines Screen (NotDetected) U Methamphetamines Scrn (NotDetected) U Benzodiazepines Scrn (NotDetected) Urine Cocaine Screen (NotDetected) U Marijuana (THC) Screen (NotDetected) 09/16/24 09/16/24 09/16/24 Range/Units 22:08 22:08 22:08 WBC (3.8-10.6) k/uL RBC (4.30-5.90) m/uL Hgb (13.0-17.5) gm/dL Hct (39.0-53.0) % MCV (80.0-100.0) fL MCH (25.0-35.0) pg MCHC (31.0-37.0) g/dL RDW (11.5-15.5) % Plt Count (150-450) k/uL MPV Neutrophils % % Lymphocytes % % Monocytes % % Eosinophils % % Basophils % % Neutrophils # (1.3-7.7) k/uL Lymphocytes # (1.0-4.8) k/uL Monocytes # (0-1.0) k/uL Eosinophils # (0-0.7) k/uL Basophils # (0-0.2) k/uL Hypochromasia PT (10.0-12.5) sec INR (<1.2) APTT 24.7 (22.0-30.0) sec Sodium 137 (137-145) mmol/L Potassium 4.3 (3.5-5.1) mmol/L Chloride 109 H (98-107) mmol/L Carbon Dioxide 24 (22-30) mmol/L Anion Gap 4 mmol/L BUN 13 (9-20) mg/dL Creatinine 0.74 (0.66-1.25) mg/dL Est GFR (CKD-EPI)AfAm >90 (>60 ml/min/1.73 sqM) Est GFR (CKD-EPI)NonAf >90 (>60 ml/min/1.73 sqM) Glucose 90 (74-99) mg/dL Calcium 9.2 (8.4-10.2) mg/dL Phosphorus 4.9 H (2.5-4.5) mg/dL Magnesium 2.2 (1.6-2.3) mg/dL Total Bilirubin 0.3 (0.2-1.3) mg/dL AST 22 (17-59) U/L ALT 20 (4-49) U/L Alkaline Phosphatase 58 (38-126) U/L Troponin I (0.000-0.034) ng/mL NT-Pro-B Natriuret Pep pg/mL Total Protein 6.5 (6.3-8.2) g/dL Albumin 3.9 (3.5-5.0) g/dL Amylase 124 H (30-110) U/L Lipase 728 H (23-300) U/L Urine Opiates Screen Not Detected (NotDetected) Ur Oxycodone Screen Not Detected (NotDetected) Urine Methadone Screen Not Detected (NotDetected) Ur Barbiturates Screen Not Detected (NotDetected) U Tricyclic Antidepress Not Detected (NotDetected) Ur Phencyclidine Scrn Not Detected (NotDetected) Ur Amphetamines Screen Not Detected (NotDetected) U Methamphetamines Scrn Not Detected (NotDetected) U Benzodiazepines Scrn Detected H (NotDetected) Urine Cocaine Screen Not Detected (NotDetected) U Marijuana (THC) Screen Detected H (NotDetected) 09/16/24 Range/Units 22:08 WBC (3.8-10.6) k/uL RBC (4.30-5.90) m/uL Hgb (13.0-17.5) gm/dL Hct (39.0-53.0) % MCV (80.0-100.0) fL MCH (25.0-35.0) pg MCHC (31.0-37.0) g/dL RDW (11.5-15.5) % Plt Count (150-450) k/uL MPV Neutrophils % % Lymphocytes % % Monocytes % % Eosinophils % % Basophils % % Neutrophils # (1.3-7.7) k/uL Lymphocytes # (1.0-4.8) k/uL Monocytes # (0-1.0) k/uL Eosinophils # (0-0.7) k/uL Basophils # (0-0.2) k/uL Hypochromasia PT (10.0-12.5) sec INR (<1.2) APTT (22.0-30.0) sec Sodium (137-145) mmol/L Potassium (3.5-5.1) mmol/L Chloride (98-107) mmol/L Carbon Dioxide (22-30) mmol/L Anion Gap mmol/L BUN (9-20) mg/dL Creatinine (0.66-1.25) mg/dL Est GFR (CKD-EPI)AfAm (>60 ml/min/1.73 sqM) Est GFR (CKD-EPI)NonAf (>60 ml/min/1.73 sqM) Glucose (74-99) mg/dL Calcium (8.4-10.2) mg/dL Phosphorus (2.5-4.5) mg/dL Magnesium (1.6-2.3) mg/dL Total Bilirubin (0.2-1.3) mg/dL AST (17-59) U/L ALT (4-49) U/L Alkaline Phosphatase (38-126) U/L Troponin I (0.000-0.034) ng/mL NT-Pro-B Natriuret Pep <20 pg/mL Total Protein (6.3-8.2) g/dL Albumin (3.5-5.0) g/dL Amylase (30-110) U/L Lipase (23-300) U/L Urine Opiates Screen (NotDetected) Ur Oxycodone Screen (NotDetected) Urine Methadone Screen (NotDetected) Ur Barbiturates Screen (NotDetected) U Tricyclic Antidepress (NotDetected) Ur Phencyclidine Scrn (NotDetected) Ur Amphetamines Screen (NotDetected) U Methamphetamines Scrn (NotDetected) U Benzodiazepines Scrn (NotDetected) Urine Cocaine Screen (NotDetected) U Marijuana (THC) Screen (NotDetected) Disposition Clinical Impression: Alcohol withdrawal syndrome, Pancreatitis Disposition: ADMITTED IP TO THIS HOSP Condition: Stable
[2024-09-16 22:22] LABS: INR 0.9 (<1.2); Prothrombin Time 10.2 sec (10.0-12.5)
[2024-09-16 22:26] LABS: ALT 20 U/L (4-49); AST 22 U/L (17-59); African American GFR (CKD) >90 (>60 ml/min/1.73 sqM); Albumin 3.9 g/dL (3.5-5.0); Alkaline Phosphatase 58 U/L (38-126); Amylase 124 U/L (30-110); Anion Gap 4 mmol/L; Blood Urea Nitrogen 13 mg/dL (9-20); Calcium 9.2 mg/dL (8.4-10.2); Carbon Dioxide 24 mmol/L (22-30); Chloride 109 mmol/L (98-107); Glucose 90 mg/dL (74-99); Lipase 728 U/L (23-300); Magnesium 2.2 mg/dL (1.6-2.3); Non-African American GFR(CKD) >90 (>60 ml/min/1.73 sqM); Phosphorus 4.9 mg/dL (2.5-4.5); Potassium 4.3 mmol/L (3.5-5.1); Sodium 137 mmol/L (137-145); Total Bilirubin 0.3 mg/dL (0.2-1.3); Total Protein 6.5 g/dL (6.3-8.2)
[2024-09-16] MEDS: FOLIC ACID 1 MG TAB PO STA (22:47)
[2024-09-16 22:55] LABS: Amphetamine Screen,Urine Not Detected (NotDetected); Barbiturate Screen,Urine Not Detected (NotDetected); Benzodiazepines Screen,Urine Detected (NotDetected); Cocaine Screen,Urine Not Detected (NotDetected); Methadone Screen, Urine Not Detected (NotDetected); Opiate Screen,Urine Not Detected (NotDetected); Oxycodone Screen, Urine Not Detected (NotDetected); Phencyclidine Screen,Urine Not Detected (NotDetected); Tricyclic Antidepressant,Urine Not Detected (NotDetected); Urn Cannabinoid Scrn Detected (NotDetected)
[2024-09-16] MEDS: MORPHINE SULFATE 4 MG/ML SYRINGE IVP STA (23:37)
[2024-09-16] MEDS: LORazepam 2 MG/ML INJ IV STA (23:39)
--- NOTE | 2024-09-17 00:15 | XR ---
EXAM: XR Chest, 2 Views CLINICAL HISTORY: Chest Pain TECHNIQUE: Frontal and lateral views of the chest. COMPARISON: September 04, 2021 FINDINGS: Lungs: Unremarkable. No infiltration, atelectasis or mass density. Pleural space: Unremarkable. No pneumothorax. No pleural fluid. Heart: Unremarkable. No cardiomegaly. Mediastinum: Unremarkable. Normal mediastinal contour. Bones/joints: Unremarkable. No acute abnormalities. IMPRESSION: Negative chest x-rays.
[2024-09-17] MEDS ORDERED: ONDANSETRON 4 MG/2 ML VIAL IVP PRN (00:48)
[2024-09-17] MEDS ORDERED: ACETAMINOPHEN TAB 325 MG TAB PO PRN (00:48)
[2024-09-17] MEDS ORDERED: MAG HYDROX/AL HYDROX/SIMETH 30 ML CUP PO PRN (00:48)
[2024-09-17] MEDS ORDERED: HYDROmorphone 0.5 MG/0.5 ML SYRINGE IVP PRN (00:48)
[2024-09-17] MEDS ORDERED: CALCIUM CARBONATE 500 MG CHEWABLE PO PRN (00:48)
[2024-09-17] MEDS ORDERED: MORPHINE SULFATE 4 MG/ML SYRINGE IV PRN (00:48)
[2024-09-17] MEDS ORDERED: NALOXONE 0.4 MG/ML 1 ML VIAL IV PRN (00:48)
--- NOTE | 2024-09-17 01:06 | P.HPIM ---
History of Present Illness H&P Date: 09/17/24 Chief Complaint: alcohol intoxication wants to quit 39-year-old male with alcohol dependence, otherwise denies any chronic medical problems Patient is unable to provide any meaningful history he is currently intoxicated providing very minimal history. Which was obtained by reviewing medical records and discussing the case with ED doctor. Patient is a heavy drinker drinks a gallon of hard liquor every day last drink was just before he came to the hospital. He is trying to quit for his family, reports some abdominal discomfort more of a diffuse pain with some periumbilical pain associated with nausea vomiting and feeling shaky and tired To me he denies any nausea vomiting changes in bowel or urinary habits however in the ED he mentioned few episodes of vomiting and having dark diarrhea He is also expressing symptoms suggestive of alcohol withdrawal with feeling shaky and tingling in his hands and feeling anxious. Denies any history of severe alcohol withdrawal or alcohol withdrawal seizures Patient admits to heavy alcohol daily Review of systems Unable to obtain due to being intoxicated review of systems Pertinent positives as noted in HPI. All other systems were reviewed and are negative on exam Constitutional: Intoxicated confused Eyes: Anicteric sclerae, moist conjunctiva, Pupils equal round reactive to light Lungs: Clear to auscultation Clear to percussion Normal respiratory effort, no accessory muscle use Cardiovascular: Heart regular in rate and rhythm, No murmurs, gallops, or rubs No peripheral edema Abdominal: Soft Tenderness to palpation over the epigastric region, no guarding, rebound or rigidity Abdomen moving with respiration Normoactive bowel sounds Extremities: No digital cyanosis No clubbing Pedal pulses intact and symmetrical Radial pulses intact and symmetrical No calf tenderness Psychiatric: Patient intoxicated confused Neuro moving all 4 extremities spontaneously unable to follow commands Past Medical History Past Medical History: Asthma, Cancer, GERD/Reflux, Seizure Disorder Additional Past Medical History / Comment(s): Testicular CA ,chronic back pain, SEIZURE -LAST ONE May. History of Any Multi-Drug Resistant Organisms: None Reported Past Surgical History: Back Surgery Additional Past Surgical History / Comment(s): testicular surgery, lymph node removal in abdomen Past Anesthesia/Blood Transfusion Reactions: Blood Transfusion Reaction, Motion Sickness Additional Past Anesthesia/Blood Transfusion Reaction / Comment(s): "WOKE UP DU RING THE LYMPH NODE SURGERY, Past Psychological History: Anxiety, Depression Smoking Status: Current every day smoker Past Alcohol Use History: Occasional Past Drug Use History: Marijuana Medications and Allergies Home Medications Medication Instructions Recorded Confirmed Type Cetirizine HCl [Zyrtec] 10 mg PO DAILY 06/23/17 01/01/20 History Omeprazole [PriLOSEC] 20 mg PO AC-BID 06/23/17 01/01/20 History Ranitidine HCl [Zantac] 150 mg PO BID 06/23/17 01/01/20 History Venlafaxine HCl [Effexor XR] 37.5 mg PO DAILY 06/23/17 01/01/20 History Gabapentin 600 mg PO TID 10/17/18 01/01/20 History Baclofen 10 mg PO TID PRN 01/01/20 01/01/20 History Ondansetron Odt [Zofran Odt] 8 mg PO Q8HR PRN 01/01/20 01/01/20 History Cephalexin [Keflex] 500 mg PO Q6HR #40 cap 04/12/21 Rx Allergies Allergy/AdvReac Type Severity Reaction Status Date / Time black pepper Allergy Swelling Verified 09/16/24 21:47 sulfamethoxazole Allergy Rash/Hives Verified 09/16/24 21:47 [From Bactrim] trimethoprim [From Bactrim] Allergy Rash/Hives Verified 09/16/24 21:47 tramadol AdvReac Nausea & Verified 09/16/24 21:47 Vomiting Physical Exam Vitals: Vital Signs Temp Pulse Resp BP Pulse Ox 09/16/24 23:40 81 18 123/82 09/16/24 21:44 97.8 F 95 20 127/82 94 L Intake and Output 09/16/24 09/16/24 09/17/24 14:59 22:59 06:59 Other: Weight 81.647 kg Results CBC & Chem 7: 09/16/24 22:08 09/16/24 22:08 Labs: Abnormal Lab Results - Last 24 Hours (Table) 09/16/24 09/16/24 09/16/24 Range/Units 22:08 22:08 22:08 WBC 13.8 H (3.8-10.6) k/uL RDW 15.8 H (11.5-15.5) % Plt Count 473 H (150-450) k/uL Neutrophils # 10.0 H (1.3-7.7) k/uL Chloride 109 H (98-107) mmol/L Phosphorus 4.9 H (2.5-4.5) mg/dL Amylase 124 H (30-110) U/L Lipase 728 H (23-300) U/L U Benzodiazepines Scrn Detected H (NotDetected) U Marijuana (THC) Screen Detected H (NotDetected) Assessment and Plan Assessment: 39-year-old male alcohol dependence comes in with alcohol intoxication trying to quit drinking I discussed case with ED doctor and accepted the admission for suspected alcohol intoxication for monitoring for symptoms of alcohol withdrawal with anticipated length of stay more than 2 midnights Chronic alcohol dependence trying to quit drinking Suspected acute alcohol intoxication alcohol levels pending Monitor for alcohol withdrawal syndrome Thiamine daily p.o. 100 mg Benzo per CIWA scale IV fluid hydration as below Elevated lipase Rule out pancreatitis Continue with n.p.o. Pain control with Dilaudid 0.5 mg every 3 hours IV push as needed IV fluid hydration lactated Ringer 150 cc/h Serum lipase 728 which is elevated but not 3 times the upper normal level Amylase elevated at 124 Liver enzymes unremarkable Renal function unremarkable BUN 13 creatinine 0.7 Hemoglobin unremarkable 13.1 Chest x-ray no acute cardiopulmonary process Full code GI prophylaxis Protonix 40 mg p.o. daily DVT prophylaxis Lovenox subcu 40 mg daily
[2024-09-17] MEDS: LACTATED RINGERS 1,000 ML IV ONE (02:32)
[2024-09-17] MEDS: DEXTROSE 5%-0.45% NACL 1,000 ML IV SCH (02:33)
[2024-09-17] MEDS: NICOTINE 21MG/24HR PATCH TRANSDERM SCH (08:33)
[2024-09-17] MEDS: HEPARIN SODIUM,PORCINE 5,000 UNIT/ML 1 ML VIAL SQ SCH (08:33)
[2024-09-17] MEDS: PANTOPRAZOLE 40 MG/10 ML VIAL IV SCH (08:33)
[2024-09-17 10:18] LABS: Basophils # (A) 0.07 X 10*3/uL (0.00-0.10); Basophils % (A) 0.7 %; Eosinophils # (A) 0.36 X 10*3/uL (0.04-0.35); Eosinophils % (A) 3.8 %; HCT 39.6 % (39.6-50.0); Lymphocytes # (A) 2.82 X 10*3/uL (0.90-5.00); Lymphocytes % (A) 29.7 %; MCH 26.8 pg (27.0-32.0); MCHC 30.3 g/dL (32.0-37.0); MCV 88.6 FL (80.0-97.0); Mean Platelet Volume 8.4 FL (9.5-12.2); Monocytes # (A) 0.91 X 10*3/uL (0.20-1.00); Monocytes % (A) 9.6 %; NRBC Per 100 WBC 0 X 10*3/uL (0.00-0.01); Platelet Count 421 X 10*3/uL (140-440); RBC 4.47 X 10*6/uL (4.40-5.60); WBC 9.48 X 10*3/uL (4.50-10.00)
[2024-09-17] MEDS: LORazepam 2 MG/ML INJ IV PRN ×2 (10:31→12:01)
[2024-09-17 10:34] LABS: ALT 17 U/L (10-49); AST 14 U/L (14-35); Albumin 3.6 g/dL (3.8-4.9); Albumin/Globulin Ratio 2.25 Ratio (1.60-3.17); Alkaline Phosphatase 49 U/L (41-126); BUN/Creat Ratio 14.62 Ratio (12.00-20.00); Blood Urea Nitrogen 11.7 mg/dL (9.0-27.0); Calcium 8.7 mg/dL (8.7-10.3); Carbon Dioxide 27.8 mmol/L (21.6-31.8); Chloride 107 mmol/L (96-109); Globulin 1.6 g/dL (1.6-3.3); Glucose 80 mg/dL (70-110); Potassium 4.8 mmol/L (3.5-5.5); Sodium 141 mmol/L (135-145); Total Bilirubin <0.2 mg/dL (0.3-1.2); Total Protein 5.2 g/dL (6.2-8.2)
[2024-09-17] MEDS ORDERED: NICOTINE GUM (POLACRILEX) 2 MG GUM BUCCAL PRN (13:57)
[2024-09-17] MEDS: PANTOPRAZOLE 40 MG TABLET PO SCH (16:30)
[2024-09-18 08:05] VITALS: BP 130/79; PULSE 82; RESP 20; TEMP 97.9
[2024-09-18] MEDS: THIAMINE 100 MG TAB PO SCH (08:10)
[2024-09-18] MEDS: VENLAFAXINE HCL ER 150 MG CAP PO SCH (08:10)
--- NOTE | 2024-09-18 11:34 | P.DS ---
Providers Date of admission: 09/17/24 00:48 Expected date of discharge: 09/18/24 Attending physician: Sukhdeep Aranda MD Primary care physician: Physician Nonstaff Hospital Course: Discharge Diagnosis: #Chronic alcohol dependence #alcoholic intoxication #Abdominal pain likely gastritis #Elevated lipase Hospital Course: 39-year-old male with PMH of chronic alcohol dependence currently in [place] for alcohol rehab presented to the ER with intoxication. Vital signs in the ER shows temperature 97.8 F, pulse rate of 95, respiration of 20, blood pressure 107/82, oxygen saturation of 95% on room air. Laboratory evaluation in the ER shows WBC of 13.8, hemoglobin 13.1, platelet count of 473, PT of 10.2, INR 0.9, sodium 137, potassium 4.3, bicarb 24, chloride 109, AST 22, ALT 20, [id number], lipase 728. EKG shows normal sinus rhythm and chest x-ray was unremarkable for any acute pulmonary process. Patient was hospitalized under observation for withdrawal symptoms from alcoholism. CIWA protocol was initiat ed. Patient mentation improved and is currently AOx3. Repeat lab work is unremarkable. Patient is medically optimized to be discharged and will be going to the [place] rehab center. Discharge instruction: Patient is advised to follow-up with PCP, instructions provided Patient is a provided with instruction/handout for gastritis, alcoholic intoxication and alcohol withdrawal. Patient to continue with his medications as directed. Vital signs reviewed. Gen: in no apparent distress, resting comfortably in bed Eyes: PERRL, no scleral injection or icterus HENT: normocephalic, atraumatic, good hearing acuity, moist mucous membranes Neck: full range of motion Resp: CTAB, no rales, rhonchi, or wheezes CVS: normal S1 and S2, no murmurs, rubs or gallops, no edema GI: soft, NTTP, ND, no hepatosplenomegaly : no suprapubic tenderness, no CVAT, vazquez catheter is not present MSK: no clubbing, no cyanosis, no noted contractures of extremities Skin: no noted rashes, petechiae; temperature of skin is appropriate Neuro: moving all extremities without signs of weakness, CN II-XII intact Psych: cooperative, euthymic mood, insight and judgment intact A total of 38 minutes of time were spent preparing this complex discharge summary. Patient was discharged on 09/18/2024 at 939. I have seen and evaluated the patient today. Discussed with the resident and agree with the residents finding and plan as documented in the resident's note. Changes highlighted in blue font. Patient Condition at Discharge: Stable Plan - Discharge Summary Discharge Rx Participant: Yes New Discharge Prescriptions: New Thiamine [Vitamin B-1] 100 mg PO DAILY #30 tab Continue Omeprazole [PriLOSEC] 20 mg PO BID Venlafaxine HCl ER [Effexor XR] 300 mg PO DAILY Discontinued Amoxicillin/Potassium Clav [Amox-Clav 875-125 mg Tablet] 1 tab PO BID Discharge Medication List Omeprazole [PriLOSEC] 20 mg PO BID 06/23/17 [History] Venlafaxine HCl ER [Effexor XR] 300 mg PO DAILY 09/17/24 [History] Thiamine [Vitamin B-1] 100 mg PO DAILY #30 tab 09/18/24 [Rx] Follow up Appointment(s)/Referral(s): Yue Santoyo MD [REFERRING] - 1 Week Nonstaff,Physician [Primary Care Provider] - 1-2 days Patient Instructions/Handouts: Gastritis (ED), Alcohol Intoxication (DC), Alcohol Withdrawal (DC) Activity/Diet/Wound Care/Special Instructions: Please follow-up with the PCP within [address] [facility] [address] [place] [phone] Call when you leave [facility] Discharge/Stand Alone Forms: [facility], Who Do I Call?, Community Resources Discharge Disposition: OTHER INSTITUTION NOT DEFINED
== END 2024-09-18 13:30 | disposition other institution (70) ==
LOC: EC 21:41 → 6NMEDSUR 09-17 00:48 → 1SOBS 09-17 07:06
PROVIDERS: ADMIT Internal Medicine; ATTEND Internal Medicine
DX: F10.229 Alcohol dependence with intoxication, unspecified (principal); R10.9 Unspecified abdominal pain; R74.8 Abnormal levels of other serum enzymes; F17.200 Nicotine dependence, unspecified, uncomplicated; F32.A Depression, unspecified; F41.9 Anxiety disorder, unspecified; G40.909 Epilepsy, unspecified, not intractable, without status epilepticus; J45.909 Unspecified asthma, uncomplicated; Z79.899 Other long term (current) drug therapy
CPT/HCPCS: 96372 ×3; 96375 ×2; 96376 ×2; 82075; 96361; 96374; 99284; 36415; 93005; 83880; 80053 ×2; 82150; 83690; 83735; 84100; 84484; 85025 ×2; 85610; 85730; 80306; 71046; G0378 ×2; S4990 ×2; J2060 ×3; J2270; J1644 ×2; J3411; J2405; J3490; J1885; J2470

== ENCOUNTER 2024-09-26 12:29 | Emergency (ER) | payer MEDICARE, OTHER ==
[2024-09-26 12:34] VITALS: RESP 18
--- NOTE | 2024-09-26 12:57 | ED ---
General Adult HPI - General Chief complaint: Headache Stated complaint: Headache Time Seen by Provider: 09/26/24 12:41 Source: patient, EMS, RN notes reviewed Mode of arrival: EMS Limitations: no limitations - History of Present Illness Initial comments: This is a 39-year-old male with no significant past medical history presenting to the emergency department via EMS from [facility] for upper respiratory infection symptoms. Patient states that today he began to experience a headache. Additionally, he has been having a dry cough, sore throat, body aches and fatigue over the past 3 days. Patient was tested for COVID at [place] that resulted negative however he has been in contact with multiple people that have tested positive. He denies chest pain, abdominal pain, nausea, vomiting, urinary or bowel changes. - Related Data Home Medications Medication Instructions Recorded Confirmed Omeprazole [PriLOSEC] 20 mg PO BID 06/23/17 09/17/24 Venlafaxine HCl ER [Effexor XR] 300 mg PO DAILY 09/17/24 09/17/24 Previous Rx's Medication Instructions Recorded Thiamine [Vitamin B-1] 100 mg PO DAILY #30 tab 09/18/24 Allergies Allergy/AdvReac Type Severity Reaction Status Date / Time black pepper Allergy Swelling Verified 09/26/24 12:34 sulfamethoxazole Allergy Rash/Hives Verified 09/26/24 12:34 [From Bactrim] tramadol Allergy Rash/Hives Verified 09/26/24 12:34 trimethoprim [From Bactrim] Allergy Rash/Hives Verified 09/26/24 12:34 Review of Systems ROS Statement: Those systems with pertinent positive or pertinent negative responses have been documented in the HPI. ROS Other: All systems not noted in ROS Statement are negative. Past Medical History Past Medical History: Asthma, Cancer, GERD/Reflux, Seizure Disorder Additional Past Medical History / Comment(s): Testicular CA ,chronic back pain, SEIZURE -LAST ONE May. History of Any Multi-Drug Resistant Organisms: None Reported Past Surgical History: Back Surgery Additional Past Surgical History / Comment(s): testicular surgery, lymph node removal in abdomen Past Anesthesia/Blood Transfusion Reactions: Blood Transfusion Reaction, Motion Sickness Additional Past Anesthesia/Blood Transfusion Reaction / Comment(s): "WOKE UP DURING THE LYMPH NODE SURGERY, Past Psychological History: Anxiety, Depression Smoking Status: Current every day smoker Past Alcohol Use History: Occasional Past Drug Use History: Marijuana General Exam Limitations: no limitations General appearance: alert, in no apparent distress Eye exam: Present: normal appearance, PERRL, EOMI. Absent: scleral icterus, conjunctival injection, periorbital swelling ENT exam: Present: normal exam, mucous membranes moist, other (posterior oropharynx mild erythema) Neck exam: Present: normal inspection. Absent: tenderness, meningismus, lymphadenopathy Respiratory exam: Present: normal lung sounds bilaterally. Absent: respiratory distress, wheezes, rales, rhonchi, stridor Cardiovascular Exam: Present: regular rate, normal rhythm, normal heart sounds. Absent: systolic murmur, diastolic murmur, rubs, gallop, clicks GI/Abdominal exam: Present: soft, normal bowel sounds. Absent: distended, tenderness, guarding, rebound, rigid Extremities exam: Present: normal inspection, full ROM, normal capillary refill. Absent: tenderness, pedal edema, joint swelling, calf tenderness Back exam: Present: normal inspection Skin exam: Present: warm, dry, intact, normal color. Absent: rash Course Vital Signs 09/26/24 09/26/24 12:31 14:34 Temperature 98.8 F 98.4 F Pulse Rate 67 75 Respiratory 18 18 Rate Blood Pressure 126/73 105/67 O2 Sat by Pulse 96 97 Oximetry Medical Decision Making - Medical Decision Making Was pt. sent in by a medical professional or institution ([facility], [facility] [place], urgent care, hospital, or longterm...) When possible be specific @ -Patient was sent in by [facility] with concerns for headache and upper respiratory infection symptoms. Did you speak to anyone other than the patient for history (EMS, parent, family, police, friend...)? What history was obtained from this source @ -No Did you review nursing and triage notes (agree or disagree)? Why? @ -I reviewed and agree with nursing and triage notes Were old charts reviewed (outside hosp., previous admission, EMS record, old EKG, old radiological studies, urgent care reports/EKG's, longterm records)? Report findings @ -No old charts were reviewed Differential Diagnosis (chest pain, altered mental status, abdominal pain women, abdominal pain men, vaginal bleeding, weakness, fever, dyspnea, syncope, headache, dizziness, GI bleed, back pain, seizure, CVA, palpatations, mental health, musculoskeletal)? @ -Differential Headache: Migraine, tension, cluster, carbon monoxide, central venous thrombosis, pension karma temporal arteritis, acute closure glaucoma, intercranial hemorrhage, mastoiditis, sinusitis, head injury, this is not meant to be an all-inclusive list. EKG interpreted by me (3pts min.). @ -None X-rays interpreted by me (1pt min.). @ -None done CT interpreted by me (1pt min.). @ -None done U/S interpreted by me (1pt. min.). @ -None done What testing was considered but not performed or refused? (CT, X-rays, U/S, labs)? Why? @ -None What meds were considered but not given or refused? Why? @ -None Did you discuss the management of the patient with other professionals (professionals i.e. , PA, [facility] [place], lab, RT, psych nurse, psychotherapist social worker, educational paraprofessional, teacher, delinquency prevention officer, caser up)? Give summary @ -No Was smoking cessation discussed for >3mins.? @ -No Was critical care preformed (if so, how long)? @ -No Were there social determinants of health that impacted care today? How? (Homelessness, low income, unemployed, alcoholism, drug addiction, transportation, low edu. Level, literacy, decrease access to med. care, detention, rehab)? @ -No Was there de-escalation of care discussed even if they declined (Discuss DNR or withdrawal of care, Hospice)? DNR status @ -No What co-morbidities impacted this encounter? (DM, HTN, Smoking, COPD, CAD, Cancer, CVA, ARF, Chemo, Hep., AIDS, mental health diagnosis, sleep apnea, morbid obesity)? @ -None Was patient admitted / discharged? Hospital course, mention meds given and route, prescriptions, significant lab abnormalities, going to OR and other pertinent info. @ -Discharged. 39-year-old male with a headache. On my evaluation the patient is resting company no signs acute distress. Vitals are stable. His neurological examination with no acute deficits. Patient noted to have mild posterior oropharynx erythema. Additionally, patient has complaints of bodyaches, sore throat and cough and headache which is more consistent with viral syndrome rather than acute intracranial process. Patient will be symptomatically treated for headache pending laboratory results. He is agree with this plan. Patient has tested positive for COVID. Reevaluation, patient states that headache has mildly resolved. Recommend supportive treatment at home such as using Tylenol Motrin as needed and increasing hydration. Discussed with Dr. Richards Undiagnosed new problem with uncertain prognosis? @ -No Drug Therapy requiring intensive monitoring for toxicity (Heparin, Nitro, Insulin, Cardizem)? @ -No Were any procedures done? @ -No Diagnosis/symptom? @ -COVID19, headache Acute, or Chronic, or Acute on Chronic? @ -Acute Uncomplicated (without systemic symptoms) or Complicated (systemic symptoms)? @ -Uncomplicated Side effects of treatment? @ -No Exacerbation, Progression, or Severe Exacerbation? @ -No Poses a threat to life or bodily function? How? (Chest pain, USA, RI, pneumonia, PE, COPD, DKA, ARF, appy, cholecystitis, CVA, Diverticulitis, Homicidal, Suicidal, threat to staff... and all critical care pts) @ -No - Lab Data Lab Results 09/26/24 09/26/24 Range/Units 13:05 13:05 Influenza Type A (PCR) Not Detected (Not Detectd) Influenza Type B (PCR) Not Detected (Not Detectd) RSV (PCR) Not Detected (Not Detectd) SARS-CoV-2 (PCR) Detected A (Not Detectd) Group A Strep (PCR) NOT DETECTED (Not Detectd) Disposition Clinical Impression: Headache, COVID-19 Disposition: HOME SELF-CARE Condition: Good Instructions (If sedation given, give patient instructions): COVID-19 (Coronavirus Disease 2019) (ED) Additional Instructions: Instructions please return to the Emergency Department if symptoms worsen or any other concerns. Is patient prescribed a controlled substance at d/c from ED?: No Referrals: None,Stated [Primary Care Provider] - 1-2 days Time of Disposition: 14:03
[2024-09-26] MEDS: SODIUM CHLORIDE 0.9% 1,000 ML IV STA (13:06)
[2024-09-26] MEDS: KETOROLAC 15 MG/ML 1 ML VIAL IVP STA (13:08)
[2024-09-26] MEDS: ONDANSETRON 4 MG/2 ML VIAL IVP STA (13:09)
[2024-09-26] MEDS: diphenhydrAMINE 50 MG/ML 1 ML VIAL IVP STA (13:12)
[2024-09-26 14:36] VITALS: BP 105/67; PULSE 75; TEMP 98.4
== END 2024-09-26 15:01 | disposition home or self-care (01) ==
LOC: EC 12:29
DX: U07.1 COVID-19 (principal); F17.200 Nicotine dependence, unspecified, uncomplicated; Z88.1 Allergy status to other antibiotic agents; Z88.2 Allergy status to sulfonamides; Z88.5 Allergy status to narcotic agent
CPT/HCPCS: 87651; 87636; 99284; 96374; 96375 ×2; 96361; J1200; J2405; J1885

== ENCOUNTER 2024-10-05 14:21 | Emergency (ER) | payer MEDICARE, OTHER ==
[2024-10-05 14:28] VITALS: RESP 18; TEMP 98.1
--- NOTE | 2024-10-05 15:28 | XR ---
EXAMINATION TYPE: XR sacrum coccyx DATE OF EXAM: 10/05/2024 3:24 PM COMPARISON: None CLINICAL INDICATION: Male, 39 years old with history of Fall; [facility] TECHNIQUE: XR sacrum coccyx, examined in frontal and lateral projections. FINDINGS: There is no evidence of fracture or dislocation. There is no soft tissue abnormality. Pelv ic phleboliths are present. Multilevel degenerative changes of the lower spine. Surgical clips prese nt projecting over the abdomen. IMPRESSION: No acute osseous pathology. [facility], , 10/05/2024 3:26 PM
--- NOTE | 2024-10-05 15:28 | XR ---
EXAMINATION TYPE: XR lumbar spine 2 or 3V DATE OF EXAM: 10/05/2024 3:24 PM COMPARISON: 03/17/2017. CLINICAL INDICATION: Male, 39 years old with history of Fall; [facility] TECHNIQUE: XR lumbar spine 2 or 3V - Frontal, lateral and coned in L5-S1 lateral views of the spine. FINDINGS: No evidence of any acute osseous pathology. No evidence of loss of vertebral body height i s seen. There is normal alignment of the lumbar vertebral bodies. Scattered disc space narrowing. Mul tilevel marginal osteophyte formation throughout the visualized spine. There is facet joint arthropat hy throughout the spine. Scattered at least mild neural foraminal stenosis. Surgical clips project ov er the abdomen. IMPRESSION: 1. No acute fracture. 2. Moderate multilevel disc degeneration. [facility], , 10/05/2024 3:25 PM
[2024-10-05] MEDS: ACETAMINOPHEN TAB 500 MG TAB PO STA (15:39)
[2024-10-05] MEDS: KETOROLAC 15 MG/ML 1 ML VIAL IM STA (15:39)
[2024-10-05] MEDS: LIDOCAINE 4% PATCH TOPICAL ONE (15:40)
--- NOTE | 2024-10-05 16:40 | ED ---
Fall HPI - General Chief Complaint: Fall Stated Complaint: fall Time Seen by Provider: 10/05/24 14:51 Source: patient, RN notes reviewed Mode of arrival: ambulatory Limitations: no limitations - History of Present Illness Initial Comments: This is a 39-year-old male who presents to the emergency department for a fall. Patient is currently at [facility] for alcoholism. He was leaning back in a chair that then fell, and he landed on his tailbone. Currently has pain to this area shooting up into his back. Denies hitting his head or sustaining any additional injuries. MD Complaint: fall - Related Data Home Medications Medication Instructions Recorded Confirmed Omeprazole [PriLOSEC] 20 mg PO BID 06/23/17 09/17/24 Venlafaxine HCl ER [Effexor XR] 300 mg PO DAILY 09/17/24 09/17/24 Previous Rx's Medication Instructions Recorded Thiamine [Vitamin B-1] 100 mg PO DAILY #30 tab 09/18/24 Allergies Allergy/AdvReac Type Severity Reaction Status Date / Time black pepper Allergy Swelling Verified 10/05/24 14:23 sulfamethoxazole Allergy Rash/Hives Verified 10/05/24 14:23 [From Bactrim] tramadol Allergy Rash/Hives Verified 10/05/24 14:23 trimethoprim [From Bactrim] Allergy Rash/Hives Verified 10/05/24 14:23 Review of Systems ROS Statement: Those systems with pertinent positive or pertinent negative responses have been documented in the HPI. ROS Other: All systems not noted in ROS Statement are negative. Past Medical History Past Medical History: Asthma, Cancer, GERD/Reflux, Seizure Disorder Additional Past Medical History / Comment(s): Testicular CA ,chronic back pain, SEIZURE -LAST ONE May. History of Any Multi-Drug Resistant Organisms: None Reported Past Surgical History: Back Surgery Additional Past Surgical History / Comment(s): testicular surgery, lymph node removal in abdomen Past Anesthesia/Blood Transfusion Reactions: Blood Transfusion Reaction, Motion Sickness Additional Past Anesthesia/Blood Transfusion Reaction / Comment(s): "WOKE UP DURING THE LYMPH NODE SURGERY, Past Psychological History: Anxiety, Depression Smoking Status: Current every day smoker Past Alcohol Use History: Abuse Past Drug Use History: Marijuana General Exam Limitations: no limitations General appearance: alert, in no apparent distress Head exam: Present: atraumatic, normocephalic, normal inspection Respiratory exam: Present: normal lung sounds bilaterally. Absent: respiratory distress, wheezes, rales, rhonchi, stridor Cardiovascular Exam: Present: regular rate, normal rhythm, normal heart sounds. Absent: systolic murmur, diastolic murmur, rubs, gallop, clicks Back exam: Present: other (Tenderness over the lower lumbar spine) Neurological exam: Present: alert, oriented X3, CN II-XII intact Psychiatric exam: Present: normal affect, normal mood Skin exam: Present: warm, dry, intact, normal color. Absent: rash Course Vital Signs 10/05/24 10/05/24 14:24 17:35 Temperature 98.1 F 98.1 F Pulse Rate 82 81 Respiratory 18 18 Rate Blood Pressure 128/79 122/82 O2 Sat by Pulse 97 98 Oximetry Medical Decision Making - Medical Decision Making This is a 39-year-old male who presents to the emergency department for lower back pain. Was pt. sent in by a medical professional or institution? @ -[facility] Did you speak to anyone other than the patient for history? @ -No Did you review nursing and triage notes? @ -Yes, and I agree, it is accurate with regards to the patient's symptoms. Were old charts reviewed? @ -No Differential Diagnosis? @ -Differential Back Pain: Strain, zoster, cauda equina syndrome, epidural abscess, vertebral osteomyelitis, discitis, fracture, subluxation, disc herniation, DJD, spinal stenosis, dissection, AAA, pancreatitis, peptic ulcer disease, pyelonephritis, kidney stone, this is not meant to be an all-inclusive list. EKG interpreted by me (3pts min.)? @ -Not obtained X-rays interpreted by me (1pt min.)? @ -X-ray of the lumbar spine and sacrum/coccyx obtained. My interpretation identifies no acute fractures. CT interpreted by me (1pt min.)? @ -Not obtained U/S interpreted by me (1pt. min.)? @ -Not obtained What testing was considered but not performed? (CT, X-rays, U/S, labs)? Why? @ -None What meds were considered but not given? Why? @ -None Did you discuss the management of the patient with other professionals? @ -No Did you reconcile home meds? @ -No Was smoking cessation discussed for >3mins.? @ -No Was critical care preformed (if so, how long)? @ -No Were there social determinants of health that impacted care today? How? (Homelessness, low income, unemployed, alcoholism, drug addiction, transportation, low edu. Level, literacy, decrease access to med. care, residential, rehab)? @ -Rehab, which is where the incident took place Was there de-escalation of care discussed even if they declined? (Discuss DNR or withdrawal of care, Hospice)? @ -No What co-morbidities impacted this encounter? (DM, HTN, Smoking, COPD, CAD, Cancer, CVA, Hep., AIDS, mental health diagnosis, sleep apnea, morbid obesity)? @ -None Was patient admitted / discharged? @ -Discharged. X-ray of the sacrum/coccyx and lumbar spine obtained revealing no acute process. Pain treated in the emergency department. Advised alternating with ibuprofen and Tylenol as needed for pain relief as well as icing the area. We also discussed something like a donut pillow when seated to take pressure off of this area. Patient discharged back to [facility] in stable condition. Case discussed with ED attending Dr. Snowden. Return precautions reviewed in depth, the patient is instructed to return to the emergency department with any new, worsening, or concerning symptoms. Patient verbalized understanding. Undiagnosed new problem with uncertain prognosis? @ -None Drug Therapy requiring intensive monitoring for toxicity (Heparin, Nitro, Insulin, Cardizem)? @ -None Were any procedures done? @ -None Diagnosis/symptom? @ -Low back/coccyx contusion Acute, or Chronic, or Acute on Chronic? @ -Acute Uncomplicated (without systemic symptoms) or Complicated (systemic symptoms)? @ -Uncomplicated Side effects of treatment? @ -None Exacerbation, Progression, or Severe Exacerbation] @ -Not applicable Poses a threat to life or bodily function? @ -No - Radiology Data Radiology results: report reviewed, image reviewed Disposition Clinical Impression: Lower back pain, Coccyx contusion Disposition: HOME SELF-CARE Instructions (If sedation given, give patient instructions): Coccyx Injury (ED) Additional Instructions: Return to the emergency department with any new, worsening, or concerning symptoms. Alternate with ibuprofen and Tylenol as needed for pain relief. Follow up with your primary care provider in 1-2 days. Is patient prescribed a controlled substance at d/c from ED?: No Referrals: Nonstaff,Physician [Primary Care Provider] - 1-2 days Time of Disposition: 16:39
[2024-10-05] MEDS: ORPHENADRINE 30 MG/ML 2 ML VIAL IM STA (17:09)
[2024-10-05] MEDS: DEXAMETHASONE SOD PHOSPHATE 10 MG/ML 1 ML VIAL IM STA (17:09)
[2024-10-05 17:37] VITALS: BP 122/82; PULSE 81
== END 2024-10-05 17:37 | disposition home or self-care (01) ==
LOC: EC 14:21
DX: S30.0XXA Contusion of lower back and pelvis, initial encounter (principal); F17.200 Nicotine dependence, unspecified, uncomplicated; Z88.1 Allergy status to other antibiotic agents; Z88.2 Allergy status to sulfonamides; Z88.5 Allergy status to narcotic agent; W19.XXXA Unspecified fall, initial encounter
CPT/HCPCS: 72100; 72220; 99284; 96372 ×3; J1100; J2360; J1885

== ENCOUNTER 2024-10-24 11:37 | Observation (INO) | payer MEDICARE, OTHER ==
[2024-10-24] MEDS: NITROGLYCERIN SL TABS 0.4 MG TAB SUBLINGUAL STA (11:54)
[2024-10-24] MEDS: SODIUM CHLORIDE 0.9% 1,000 ML IV STA (11:54)
[2024-10-24 12:01] LABS: Basophils # (A) 0.1 k/uL (0-0.2); Basophils % (A) 0 %; Eosinophils # (A) 0.3 k/uL (0-0.7); Eosinophils % (A) 3 %; HCT 37.7 % (39.0-53.0); HGB 12.2 gm/dL (13.0-17.5); Lymphocytes # (A) 1.8 k/uL (1.0-4.8); Lymphocytes % (A) 17 %; MCH 27.2 pg (25.0-35.0); MCHC 32.4 g/dL (31.0-37.0); MCV 83.9 fL (80.0-100.0); Mean Platelet Volume 6.9; Monocytes # (A) 0.9 k/uL (0-1.0); Monocytes % (A) 8 %; Neutrophils # (A) 7.5 k/uL (1.3-7.7); Neutrophils % (A) 69 %; Platelet Count 366 k/uL (150-450); RBC 4.49 m/uL (4.30-5.90); RDW 15.2 % (11.5-15.5); WBC 10.9 k/uL (3.8-10.6)
[2024-10-24 12:10] LABS: INR 0.9 (<1.2); Partial Thromboplastin Time 27.1 sec (22.0-30.0); Prothrombin Time 9.9 sec (10.0-12.5)
[2024-10-24 12:17] LABS: ALT 18 U/L (4-49); AST 29 U/L (17-59); African American GFR (CKD) >90 (>60 ml/min/1.73 sqM); Alkaline Phosphatase 66 U/L (38-126); Anion Gap 7 mmol/L; Blood Urea Nitrogen 12 mg/dL (9-20); Calcium 8.9 mg/dL (8.4-10.2); Carbon Dioxide 22 mmol/L (22-30); Chloride 109 mmol/L (98-107); Glucose 101 mg/dL (74-99); Magnesium 2.2 mg/dL (1.6-2.3); Non-African American GFR(CKD) >90 (>60 ml/min/1.73 sqM); Sodium 138 mmol/L (137-145); Total Bilirubin 0.4 mg/dL (0.2-1.3); Total Protein 6.7 g/dL (6.3-8.2)
[2024-10-24] MEDS: MORPHINE SULFATE 2 MG/ML SYRINGE IVP STA (12:46)
[2024-10-24] MEDS: LORazepam 2 MG/ML INJ IV STA (12:48)
--- NOTE | 2024-10-24 12:55 | XR ---
EXAMINATION TYPE: XR chest 2V DATE OF EXAM: 10/24/2024 12:21 PM COMPARISON: 09/16/2024 CLINICAL INDICATION: Male, 39 years old with history of Chest Pain, , TECHNIQUE: PA and lateral views FINDINGS: Heart normal size. Aorta and pulmonary vasculature within normal limits. No consolidation or pleural effusion. Old right posterolateral fifth rib fracture deformity. Bilateral nipple rings. Some strandy atelectasis posterior lung base on the lateral view. IMPRESSION: Some strandy posterior basilar atelectasis. No definite acute process. [facility], , 10/24/2024 12:53 PM
[2024-10-24] MEDS ORDERED: ONDANSETRON 4 MG/2 ML VIAL IVP PRN (13:09)
[2024-10-24] MEDS ORDERED: NALOXONE 0.4 MG/ML 1 ML VIAL IV PRN (13:09)
--- NOTE | 2024-10-24 13:09 | ED ---
General Adult HPI - General Chief complaint: Chest Pain Stated complaint: chest pain Time Seen by Provider: 10/24/24 11:45 Source: patient Mode of arrival: EMS Limitations: no limitations - History of Present Illness Initial comments: Is a 39-year-old male who presents emergency department complaining of chest pain. States is left-sided. Somewhat worse with palpation but also has an element to it that is not worse with palpation. Denies shortness of breath. Denies lightheadedness. States that started last night while having an argument with his significant other. Denies any nausea or vomiting. Has no radiation of the pain. Describes it as a stabbing pressure sensation. Presents for further evaluation. Does have a history of remote alcohol abuse as well as remote meth abuse. Has a history of acid reflux as well. Also has a history of testicular cancer. Has no other acute complaints at this time. Presents for further ev aluation. - Related Data Home Medications Medication Instructions Recorded Confirmed Omeprazole [PriLOSEC] 20 mg PO BID 06/23/17 10/24/24 Venlafaxine HCl ER [Effexor XR] 300 mg PO DAILY 09/17/24 10/24/24 Allergies Allergy/AdvReac Type Severity Reaction Status Date / Time black pepper Allergy Swelling Verified 10/24/24 13:05 sulfamethoxazole Allergy Rash/Hives Verified 10/24/24 13:05 [From Bactrim] tramadol Allergy Rash/Hives Verified 10/24/24 13:05 trimethoprim [From Bactrim] Allergy Rash/Hives Verified 10/24/24 13:05 Review of Systems ROS Statement: Those systems with pertinent positive or pertinent negative responses have been documented in the HPI. Review of Systems: CONST: Denies fever EYES: Denies blurry vision ENT: Denies nasal congestion C/V: Endorses chest pain RESP: Denies shortness of breath GI: Denies abdominal pain : Denies dysuria SKIN: Denies rash. MSK: Denies joint pain. NEURO: Denies headache ROS Other: All systems not noted in ROS Statement are negative. Past Medical History Past Medical History: Asthma, Cancer, GERD/Reflux, Seizure Disorder Additional Past Medical History / Comment(s): Testicular CA ,chronic back pain, SEIZURE -LAST ONE May. History of Any Multi-Drug Resistant Organisms: None Reported Past Surgical History: Back Surgery Additional Past Surgical History / Comment(s): testicular surgery, lymph node removal in abdomen Past Anesthesia/Blood Transfusion Reactions: Blood Transfusion Reaction, Motion Sickness Additional Past Anesthesia/Blood Transfusion Reaction / Comment(s): "WOKE UP DURING THE LYMPH NODE SURGERY, Past Psychological History: Anxiety, Depression Smoking Status: Current every day smoker Past Alcohol Use History: None Reported, Abuse Past Drug Use History: None Reported General Exam - General Exam Comments Initial Comments: General: Appears in no acute distress. HEAD: Normal with no signs of head trauma. EYES: EOMI ENT: Hearing grossly intact, normal oropharynx. RESPIRATORY: Clear breath sounds bilaterally. No wheezes, rales, or rhonchi. C/V: Regular rate and rhythm. S1 and S2 auscultated, no edema, peripheral pulses 2+ and intact throughout ABD: Abd is soft, nontender, nondistended EXT: Normal range of motion, no obvious deformity. Patient does have some reproducible chest wall pain on the left however he states this is not all of his pain as he feels like there is a portion of it that is on the inside as well that is not reproducible on palpation or with movement. SKIN: No rashes or lesions observed on exposed skin. NEURO: Alert and oriented x 4. Limitations: no limitations Course Vital Signs 10/24/24 11:38 Temperature 98 F Pulse Rate 91 Respiratory 18 Rate Blood Pressure 125/81 O2 Sat by Pulse 99 Oximetry Medical Decision Making - Medical Decision Making Was pt. sent in by a medical professional or institution (, PA, [employer], urgent care, hospital, or snf...) When possible be specific @ -No Did you speak to anyone other than the patient for history (EMS, parent, family, police, friend...)? What history was obtained from this source @ -No Did you review nursing and triage notes (agree or disagree)? Why? @ -I reviewed and agree with nursing and triage notes Were old charts reviewed (outside hosp., previous admission, EMS record, old EKG, old radiological studies, urgent care reports/EKG's, snf records)? Report findings @ -No old charts were reviewed Differential Diagnosis (chest pain, altered mental status, abdominal pain women, abdominal pain men, vaginal bleeding, weakness, fever, dyspnea, syncope, headache, dizziness, GI bleed, back pain, seizure, CVA, palpatations, mental health, musculoskeletal)? @ -Differential Chest Pain: Stable Angina, Unstable Angina, STEMI, NSTEMI Aortic Dissection, Pneumothorax, Musculoskeletal, Esophageal Spasm GERD, Cholecystitis, Pancreatitis, Zoster, this is not meant to be an all-inclusive list. EKG interpreted by me (3pts min.). @ -As above X-rays interpreted by me (1pt min.). @ -Chest x-ray reveals no obvious acute cardiopulmonary process. CT interpreted by me (1pt min.). @ -None done U/S interpreted by me (1pt. min.). @ -None done What testing was considered but not performed or refused? (CT, X-rays, U/S, labs)? Why? @ -None What meds were considered but not given or refused? Why? @ -None Did you discuss the management of the patient with other professionals (professionals i.e. , PA, [employer], lab, RT, psych nurse, psych social worker, chassis driver, teacher, professional security officer, case maker)? Give summary @ -Discussed with Dr. Samuel of the admitting team who accepted the admission. Was smoking cessation discussed for >3mins.? @ -No Was critical care preformed (if so, how long)? @ -No Were there social determinants of health that impacted care today? How? (H omelessness, low income, unemployed, alcoholism, drug addiction, transportation, low edu. Level, literacy, decrease access to med. care, custodial, rehab)? @ -No Was there de-escalation of care discussed even if they declined (Discuss DNR or withdrawal of care, Hospice)? DNR status @ -No What co-morbidities impacted this encounter? (DM, HTN, Smoking, COPD, CAD, Cancer, CVA, ARF, Chemo, Hep., AIDS, mental health diagnosis, sleep apnea, morbid obesity)? @ -History of polysubstance abuse, alcohol abuse Was patient admitted / discharged? Hospital course, mention meds given and route, prescriptions, significant lab abnormalities, going to OR and other pertinent info. @ -Patient presents for left-sided chest pain. Does have a chest wall component to it as well however cannot definitively rule out cardiac etiology at this time. We will obtain cardiac workup. He will be given nitro. He already received 324 mg of aspirin. Patient was in agreement this plan. Vitals within acceptable limits. Laboratory studies are all unremarkable including an undetectable troponin. EKG shows no signs of acute ischemia. Chest x-ray unremarkable. Nitro did nothing for the patient's chest pain when I discussed with him his workup. Attempted morphine which did improve the pain. Was also anxious and got a dose of Ativan. Discussed with them, and we will admit to cardiac observation. He was in agreement this plan. Cardiology consulted. Echo ordered. We will trend the troponin. I spoke with the admitting provider, Dr. Samuel of [facility] who accepted the admission. Undiagnosed new problem with uncertain prognosis? @ -No Drug Therapy requiring intensive monitoring for toxicity (Heparin, Nitro, Insulin, Cardizem)? @ -No Were any procedures done? @ -No Diagnosis/symptom? @ -Chest pain Acute, or Chronic, or Acute on Chronic? @ -Acute Uncomplicated (without systemic symptoms) or Complicated (systemic symptoms)? @ -Complicated Side effects of treatment? @ -No Exacerbation, Progression, or Severe Exacerbation? @ -No Poses a threat to life or bodily function? How? (Chest pain, [place], [place], pneumonia, PE, COPD, DKA, ARF, appy, cholecystitis, CVA, Diverticulitis, Homicidal, Suicidal, threat to staff... and all critical care pts) @ -Possibly, yes - Lab Data Result diagrams: 10/24/24 11:51 10/24/24 11:51 Lab Results 10/24/24 10/24/24 10/24/24 Range/Units 11:51 11:51 11:51 WBC 10.9 H (3.8-10.6) k/uL RBC 4.49 (4.30-5.90) m/uL Hgb 12.2 L (13.0-17.5) gm/dL Hct 37.7 L (39.0-53.0) % MCV 83.9 (80.0-100.0) fL MCH 27.2 (25.0-35.0) pg MCHC 32.4 (31.0-37.0) g/dL RDW 15.2 (11.5-15.5) % Plt Count 366 (150-450) k/uL MPV 6.9 Neutrophils % 69 % Lymphocytes % 17 % Monocytes % 8 % Eosinophils % 3 % Basophils % 0 % Neutrophils # 7.5 (1.3-7.7) k/uL Lymphocytes # 1.8 (1.0-4.8) k/uL Monocytes # 0.9 (0-1.0) k/uL Eosinophils # 0.3 (0-0.7) k/uL Basophils # 0.1 (0-0.2) k/uL PT 9.9 L (10.0-12.5) sec INR 0.9 (<1.2) APTT 27.1 (22.0-30.0) sec Sodium 138 (137-145) mmol/L Potassium 4.0 (3.5-5.1) mmol/L Chloride 109 H (98-107) mmol/L Carbon Dioxide 22 (22-30) mmol/L Anion Gap 7 mmol/L BUN 12 (9-20) mg/dL Creatinine 0.73 (0.66-1.25) mg/dL Est GFR (CKD-EPI)AfAm >90 (>60 ml/min/1.73 sqM) Est GFR (CKD-EPI)NonAf >90 (>60 ml/min/1.73 sqM) Glucose 101 H (74-99) mg/dL Calcium 8.9 (8.4-10.2) mg/dL Magnesium 2.2 (1.6-2.3) mg/dL Total Bilirubin 0.4 (0.2-1.3) mg/dL AST 29 (17-59) U/L ALT 18 (4-49) U/L Alkaline Phosphatase 66 (38-126) U/L Troponin I (0.000-0.034) ng/mL Total Protein 6.7 (6.3-8.2) g/dL Albumin 4.0 (3.5-5.0) g/dL 10/24/24 Range/Units 11:51 WBC (3.8-10.6) k/uL RBC (4.30-5.90) m/uL Hgb (13.0-17.5) gm/dL Hct (39.0-53.0) % MCV (80.0-100.0) fL MCH (25.0-35.0) pg MCHC (31.0-37.0) g/dL RDW (11.5-15.5) % Plt Count (150-450) k/uL MPV Neutrophils % % Lymphocytes % % Monocytes % % Eosinophils % % Basophils % % Neutrophils # (1.3-7.7) k/uL Lymphocytes # (1.0-4.8) k/uL Monocytes # (0-1.0) k/uL Eosinophils # (0-0.7) k/uL Basophils # (0-0.2) k/uL PT (10.0-12.5) sec INR (<1.2) APTT (22.0-30.0) sec Sodium (137-145) mmol/L Potassium (3.5-5.1) mmol/L Chloride (98-107) mmol/L Carbon Dioxide (22-30) mmol/L Anion Gap mmol/L BUN (9-20) mg/dL Creatinine (0.66-1.25) mg/dL Est GFR (CKD-EPI)AfAm (>60 ml/min/1.73 sqM) Est GFR (CKD-EPI)NonAf (>60 ml/min/1.73 sqM) Glucose (74-99) mg/dL Calcium (8.4-10.2) mg/dL Magnesium (1.6-2.3) mg/dL Total Bilirubin (0.2-1.3) mg/dL AST (17-59) U/L ALT (4-49) U/L Alkaline Phosphatase (38-126) U/L Troponin I <0.012 (0.000-0.034) ng/mL Total Protein (6.3-8.2) g/dL Albumin (3.5-5.0) g/dL - EKG Data -: EKG Interpreted by Me EKG Comments: 12-lead Electrocardiogram Interpretation Note EKG was reviewed and interpreted by myself. 12-lead ECG performed at 1142 is i nterpreted by me as revealing normal sinus rhythm at a rate of 85 beats per minute. [place] is normal. ME interval is 128 ms, QRS durations 88 ms, QTc is 398 ms.. There were no ST or T wave abnormalities to suggest myocardial ischemia or injury. R wave progression across the precordium was satisfactory. By my interpretation this EKG is non-diagnostic for acute ischemia. Disposition Clinical Impression: Chest pain Disposition: ADMITTED IP TO THIS [facility] Condition: Stable Referrals: Nonstaff,Physician [Primary Care Provider] - 1-2 days Time of Disposition: 13:00
[2024-10-24] MEDS ORDERED: MORPHINE SULFATE 2 MG/ML SYRINGE IVP PRN (13:10)
[2024-10-24] MEDS: SODIUM CHLORIDE 0.9% 1,000 ML IV SCH (13:24)
[2024-10-24] MEDS ORDERED: CYCLOBENZAPRINE 5 MG TAB PO PRN (14:28)
[2024-10-24] MEDS: VENLAFAXINE HCL ER 150 MG CAP PO SCH (14:34)
[2024-10-24] MEDS: HEPARIN SODIUM,PORCINE 5,000 UNIT/ML 1 ML VIAL SQ SCH (16:28)
--- NOTE | 2024-10-24 16:44 | P.HPIM ---
History of Present Illness H&P Date: 10/24/24 39 year old M with PMH of Anxiety/Depression, previous history of meth and EtOH abuse now 5 months sober presents to the ED for chest pain. Patient reports chest pain that started last night when having a heated argument with his significant other. Chest pain is left sided, sharp and stabbing, worsened with movement and deep inspiration. No radiation. No diaphoresis, nausea or vomiting. Unable to take a deep breath due to the pain. Denies heavy lifting, cough or fever. Reports running out of Effexor for the last 4 days. In the ED he underwent extensive evaluation. BP 128/75, HR 89, RR 16, T 98F, 99% on RA. CBC, Coag panel, CMP significant for WBC 10.9, Hg 12.2, Hct 37.7, PT 9.9, Cl 109, glu 101. Trop < 0.012 x 2 with EKG showing NSR. CXR no acute pathology. Patient is admitted for chest pain rule out and Cardiology consultation. General: non toxic, no distress, appears at stated age Derm: warm, dry Head: atraumatic, normocephalic, symmetric Eyes: EOMI, no lid lag, anicteric sclera Mouth: no lip lesion, mucus membranes moist Cardiovascular: S1S2 reg, no murmur, chest wall TTP Lungs: CTA bilateral, no rhonchi, no rales , no accessory muscle use Ext: no gross muscle atrophy, no edema, no contractures Neuro: no focal neuro deficits Psych: Alert, oriented, appropriate affect Based on my assessment of this patient, this patient meets a high complexity level of care. Chest pain: MSK. Troponin negative x 2. EKG NSR. Check D-Dimer. Telemetry monitoring. Morphine 2 mg IV Q6H PRN, Ibuprofen 400 mg PO Q6H PRN, Flexeril 5 mg PO TID PRN. Cardiology consult. Leukocytosis: Mild elevation. No signs of active infection. Monitor fever profile. Anxiety and Depression: Effexor 300 mg PO QD. GERD: Prilosec 20 mg PO BID. CODE STATUS: FULL CODE DVT Prophylaxis: SCD GI Prophylaxis: Protonix PO Designated medical POA if patient is not able to make medical decisions for themselves: I have reviewed the following revenue cycle consultant notes: ER note. I have reviewed the results of the following tests: As above. I have ordered the following tests: As above. I have discussed the care of this patient with the following independent historian: I have independently interpreted the following test below: EKG. I have discussed the management of this patient with the following physician: ER provider. Past Medical History Past Medical History: Asthma, Cancer, GERD/Reflux, Seizure Disorder Additional Past Medical History / Comment(s): Testicular CA ,chronic back pain, SEIZURE -LAST ONE May. History of Any Multi-Drug Resistant Organisms: None Reported Past Surgical History: Back Surgery Additional Past Surgical History / Comment(s): testicular surgery, lymph node removal in abdomen Past Anesthesia/Blood Transfusion Reactions: Blood Transfusion Reaction, Motion Sickness Additional Past Anesthesia/Blood Transfusion Reaction / Comment(s): "WOKE UP DURING THE LYMPH NODE SURGERY, Past Psychological History: Anxiety, Depression Smoking Status: Current every day smoker Past Alcohol Use History: None Reported, Abuse Additional Past Alcohol Use History / Comment(s): STARTED SMOKING AT AGE 11 SMOK ES 3/4 PPD Past Drug Use History: None Reported Medications and Allergies Home Medications Medication Instructions Recorded Confirmed Type Omeprazole [PriLOSEC] 20 mg PO BID 06/23/17 10/24/24 History Venlafaxine HCl ER [Effexor XR] 300 mg PO DAILY 09/17/24 10/24/24 History Allergies Allergy/AdvReac Type Severity Reaction Status Date / Time black pepper Allergy Swelling Verified 10/24/24 13:05 sulfamethoxazole Allergy Rash/Hives Verified 10/24/24 13:05 [From Bactrim] tramadol Allergy Rash/Hives Verified 10/24/24 13:05 trimethoprim [From Bactrim] Allergy Rash/Hives Verified 10/24/24 13:05 Physical Exam Vitals: Vital Signs Temp Pulse Pulse Resp BP BP Pulse Ox 10/24/24 16:09 89 16 128/75 99 10/24/24 15:43 95 18 116/78 96 10/24/24 14:00 79 16 113/85 96 10/24/24 13:00 79 16 116/81 98 10/24/24 11:38 98 F 91 18 125/81 99 Intake and Output 10/24/24 10/24/24 10/24/24 06:59 14:59 22:59 Other: Weight 80.739 kg 80.739 kg Results CBC & Chem 7: 10/24/24 11:51 10/24/24 11:51 Labs: Abnormal Lab Results - Last 24 Hours (Table) 10/24/24 10/24/24 10/24/24 Range/Units 11:51 11:51 11:51 WBC 10.9 H (3.8-10.6) k/uL Hgb 12.2 L (13.0-17.5) gm/dL Hct 37.7 L (39.0-53.0) % PT 9.9 L (10.0-12.5) sec Chloride 109 H (98-107) mmol/L Glucose 101 H (74-99) mg/dL
[2024-10-24] MEDS: PANTOPRAZOLE 40 MG TABLET PO SCH (22:06)
[2024-10-24] MEDS: GABAPENTIN 300 MG CAP PO SCH (22:06)
[2024-10-24] MEDS: IBUPROFEN 400 MG TAB PO PRN (22:21)
[2024-10-25 08:06] VITALS: RESP 16
[2024-10-25 09:09] LABS: Basophils # (A) 0.07 X 10*3/uL (0.00-0.10); Basophils % (A) 0.9 %; Eosinophils % (A) 5.3 %; HCT 35.4 % (39.6-50.0); HGB 11.3 g/dL (13.0-17.0); Lymphocytes # (A) 2.17 X 10*3/uL (0.90-5.00); MCH 27.5 pg (27.0-32.0); MCHC 31.9 g/dL (32.0-37.0); MCV 86.1 FL (80.0-97.0); Mean Platelet Volume 8.6 FL (9.5-12.2); Monocytes # (A) 0.85 X 10*3/uL (0.20-1.00); Monocytes % (A) 11.3 %; NRBC Per 100 WBC 0 X 10*3/uL (0.00-0.01); Neutrophils # (A) 3.98 X 10*3/uL (1.80-7.70); Neutrophils % (A) 53.2 %; Platelet Count 314 X 10*3/uL (140-440); RBC 4.11 X 10*6/uL (4.40-5.60); RDW 15.3 % (11.5-14.5); WBC 7.49 X 10*3/uL (4.50-10.00)
[2024-10-25 09:16] LABS: BUN/Creat Ratio 17.83 Ratio (12.00-20.00); Blood Urea Nitrogen 10.7 mg/dL (9.0-27.0); Carbon Dioxide 21.5 mmol/L (21.6-31.8); Chloride 109 mmol/L (96-109); Glucose 99 mg/dL (70-110); Potassium 4.2 mmol/L (3.5-5.5); Sodium 141 mmol/L (135-145)
[2024-10-25 09:17] LABS: ALT 15 U/L (10-49); AST 20 U/L (14-35); Albumin 3.6 g/dL (3.8-4.9); Alkaline Phosphatase 60 U/L (41-126); Calcium 8.3 mg/dL (8.7-10.3); Total Bilirubin <0.2 mg/dL (0.3-1.2); Total Protein 5.6 g/dL (6.2-8.2)
--- NOTE | 2024-10-25 11:17 | P.CRDCN ---
History of Present Illness History of present illness: HISTORY OF PRESENT ILLNESS: This is a 39-year-old male with a past medical history significant for asthma, testicular cancer, nicotine dependence, alcohol abuse, and methamphetamine use. Patient does not follow with a operations and maintenance technician. We have been asked to see the patient in consultation for chest pain. Patient examined at the bedside. Patient states he ran out of his mood stabilizer a few days ago. He states he was arguing with a female friend a couple days ago and then began to have chest discomfort. He reports shortness of breath. Reports numbness in both of his hands. He states the pain is in the upper left portion of his chest. He denies having pain like this before. He reports pain is worse with chest wall palpation. He is a current cigarette smoker. He is 45 days sober from meth and alcohol. DIAGNOSTICS: - EKG reveals sinus mechanism with no signs of acute ischemia. - Chest xray some strandy posterior basilar atelectasis. No definite acute process. - Laboratory data: WBC 10.9. Hemoglobin 10.2. Platelet count 366. D-dimer 0.23. Sodium 138. Potassium 4.0. BUN 12. Creatinine 0.73. Troponin negative x 3. - Current home cardiac medications include none - No previous echocardiogram, stress test, or cardiac catheterization available in EMR for review REVIEW OF SYSTEMS: At the time of my exam: CONSTITUTIONAL: Denies fever or chills. HEENT: Denies blurred vision, vision changes, or eye pain. Denies hemoptysis CARDIOVASCULAR: Denies chest pain. Denies orthopnea. Denies PND. Denies palpitations RESPIRATORY: Denies shortness of breath. GASTROINTESTINAL: Denies abdominal pain. Denies nausea or vomiting. HEMATOLOGIC: Denies bleeding disorders. GENITOURINARY: Denies any blood in urine. SKIN: Denies pruitis. Denies rash. PHYSICAL EXAM: VITAL SIGNS: Reviewed. GENERAL: Well-developed in no acute distress. HEENT: Head is normocephalic. Pupils are equal, round. Sclerae anicteric. Mucous membranes of the mouth are moist. Neck supple. No JVD or thyromegaly LUNGS: Respirations even and unlabored. Lungs essentially clear to auscultation bilaterally. HEART: Regular rate and rhythm. S1 and S2 heard. ABDOMEN: Soft. Nondistended. Nontender. EXTREMITIES: Normal range of motion. No clubbing or cyanosis. Peripheral pulses intact. No lower extremity edema NEUROLOGIC: Awake and alert. Oriented x 3. ASSESSMENT: Chest pain History of testicular cancer Nicotine dependence History of alcohol abuse History of methamphetamine use PLAN: An acute coronary event has been ruled out. Patients pain appears noncardiac is is reproducible with chest wall palpation. Obtain 2D echo to assess cardiac structure and function Patient to undergo stress echocardiogram today If negative, he may be discharged home today from a cardiac standpoint Further recommendations pending patient course Nurse practitioner note has been reviewed by physician. Signing provider agrees with the documented findings, assessment, and plan of care documented by FELLING MACHINE OPERATOR as a scribe. Past Medical History Past Medical History: Asthma, Cancer, GERD/Reflux, Seizure Disorder Additional Past Medical History / Comment(s): Testicular CA ,chronic back pain, SEIZURE -LAST ONE May. History of Any Multi-Drug Resistant Organisms: None Reported Past Surgical History: Back Surgery Additional Past Surgical History / Comment(s): testicular surgery, lymph node removal in abdomen Past Anesthesia/Blood Transfusion Reactions: Blood Transfusion Reaction, Motion Sickness Additional Past Anesthesia/Blood Transfusion Reaction / Comment(s): "WOKE UP DURING THE LYMPH NODE SURGERY, Past Psychological History: Anxiety, Depression Smoking Status: Current every day smoker Past Alcohol Use History: None Reported, Abuse Additional Past Alcohol Use History / Comment(s): STARTED SMOKING AT AGE 11 SM OKES 3/4 PPD Past Drug Use History: None Reported Medications and Allergies Home Medications Medication Instructions Recorded Confirmed Type Omeprazole [PriLOSEC] 20 mg PO BID 06/23/17 10/24/24 History Venlafaxine HCl ER [Effexor XR] 300 mg PO DAILY 09/17/24 10/24/24 History Allergies Allergy/AdvReac Type Severity Reaction Status Date / Time black pepper Allergy Swelling Verified 10/24/24 13:05 sulfamethoxazole Allergy Rash/Hives Verified 10/24/24 13:05 [From Bactrim] tramadol Allergy Rash/Hives Verified 10/24/24 13:05 trimethoprim [From Bactrim] Allergy Rash/Hives Verified 10/24/24 13:05 Physical Exam Vitals: Vital Signs Temp Pulse Pulse Resp BP BP Pulse Ox 10/25/24 07:58 96 10/25/24 07:10 97.9 F 65 16 125/84 96 10/25/24 02:00 97.9 F 78 17 112/67 97 10/24/24 20:00 97.7 F 88 16 120/68 96 10/24/24 16:09 89 16 128/75 99 10/24/24 15:43 95 18 116/78 96 10/24/24 14:00 79 16 113/85 96 10/24/24 13:00 79 16 116/81 98 10/24/24 11:38 98 F 91 18 125/81 99 Intake and Output 10/24/24 10/25/24 10/25/24 22:59 06:59 14:59 Intake Total 560 Balance 560 Intake: Oral 560 Other: # Voids 2 1 Weight 80.739 kg Results 10/25/24 04:02 10/25/24 04:02 Cardiac Enzymes 10/24/24 10/24/24 10/24/24 Range/Units 11:51 11:51 14:46 AST 29 (17-59) U/L Troponin I <0.012 <0.012 (0.000-0.034) ng/mL 10/24/24 Range/Units 18:35 AST (17-59) U/L Troponin I <0.012 (0.000-0.034) ng/mL Coagulation 10/24/24 Range/Units 11:51 PT 9.9 L (10.0-12.5) sec APTT 27.1 (22.0-30.0) sec CBC 10/24/24 Range/Units 11:51 WBC 10.9 H (3.8-10.6) k/uL RBC 4.49 (4.30-5.90) m/uL Hgb 12.2 L (13.0-17.5) gm/dL Hct 37.7 L (39.0-53.0) % Plt Count 366 (150-450) k/uL Comprehensive Metabolic Panel 10/24/24 Range/Units 11:51 Sodium 138 (137-145) mmol/L Potassium 4.0 (3.5-5.1) mmol/L Chloride 109 H (98-107) mmol/L Carbon Dioxide 22 (22-30) mmol/L BUN 12 (9-20) mg/dL Creatinine 0.73 (0.66-1.25) mg/dL Glucose 101 H (74-99) mg/dL Calcium 8.9 (8.4-10.2) mg/dL AST 29 (17-59) U/L ALT 18 (4-49) U/L Alkaline Phosphatase 66 (38-126) U/L Total Protein 6.7 (6.3-8.2) g/dL Albumin 4.0 (3.5-5.0) g/dL Current Medications Generic Name Dose Route Start Last Admin Trade Name Freq PRN Reason Stop Dose Admin Cyclobenzaprine HCl 5 mg 10/24/24 14:28 Cyclobenzaprine 5 Mg Tab PO TID PRN Muscle Spasm Gabapentin 600 mg 10/24/24 21:00 10/24/24 22:06 Gabapentin 300 Mg Cap PO 600 mg BID MAXINE Administration Heparin Sodium (Porcine) 5,000 unit 10/24/24 16:00 10/25/24 00:36 Heparin Sodium,Porcine 5,000 Unit/Ml 1 Ml Vial SQ 5,000 unit Q8HR MAXINE Administration Sodium Chloride 1,000 mls @ 75 mls/hr 10/24/24 13:15 10/25/24 06:48 Saline 0.9% IV Not Given .[id number] MAXINE Ibuprofen 400 mg 10/24/24 13:09 10/24/24 22:21 Ibuprofen 400 Mg Tab PO 400 mg Q6HR PRN Administration Mild Pain or Fever > 100.5 Morphine Sulfate 2 mg 10/24/24 13:10 Morphine Sulfate 2 Mg/Ml Syringe IVP Q6HR PRN Pain/Discomfort Naloxone HCl 0.2 mg 10/24/24 13:09 Naloxone 0.4 Mg/Ml 1 Ml Vial IV Q2M PRN Opioid Reversal Ondansetron HCl 4 mg 10/24/24 13:09 Ondansetron 4 Mg/2 Ml Vial IVP Q8HR PRN Nausea And Vomiting Pantoprazole Sodium 40 mg 10/24/24 21:00 10/24/24 22:06 Pantoprazole 40 Mg Tablet PO 40 mg DAILY MAXINE Administration Venlafaxine HCl 300 mg 10/24/24 14:30 10/24/24 14:34 Venlafaxine Hcl Er 150 Mg Cap PO 300 mg DAILY MAXINE Administration Intake and Output 10/24/24 10/25/24 10/25/24 22:59 06:59 14:59 Intake Total 560 Balance 560 Intake: Oral 560 Other: # Voids 2 1 Weight 80.739 kg 10/24/24 11:51 10/24/24 11:51
--- NOTE | 2024-10-25 12:25 | CA ---
Transthoracic Echo Report Name: Ayo Linares Age: 39 Gender: M : 1985 Exam Date: 10/25/2024 12:02 Exam Location: [facility] Ht (in): 71 Wt (lb): 176 Ordering Physician: Christy Bejarano Attending/Referring Phys: [id number], Carlee Manager Web Judith Sevilla RDCS Procedure CPT: Indications: CP Cardiac Hx: Technical Quality: Good Contrast 1: Total Dose (mL): Contrast 2: Total Dose (mL): MEASUREMENTS (Male / Female) Normal Values 2D ECHO LV Diastolic Diameter PLAX 5.4 cm 4.2 - 5.9 / 3.9 - 5.3 cm LV Systolic Diameter PLAX 3.1 cm IVS Diastolic Thickness 1.0 cm 0.6 - 1.0 / 0.6 - 0.9 cm LVPW Diastolic Thickness 1.2 cm 0.6 - 1.0 / 0.6 - 0.9 cm LV Relative Wall Thickness 0.4 RV Internal Dim ED PLAX 1.6 cm LA Systolic Diameter LX 4.0 cm 3.0 - 4.0 / 2.7 - 3.8 cm LV Diastolic Volume MOD BP 102.1 cm??? 67 - 155 / 56 - 104 cm??? LV Systolic Volume MOD BP 35.3 cm??? - 58 / 19 - 49 cm??? LV Ejection Fraction MOD BP 65.4 % >= 55 % LV Cardiac Index MOD BP 2899.0 cm???/min???m??? LV Diastolic Volume MOD 4C 91.1 cm??? LV Systolic Volume MOD 4C 33.4 cm??? LV Ejection Fraction MOD 4C 63.4 % LV Cardiac Index MOD 4C 2503.3 cm???/min???m??? LV Diastolic Length 4C 8.5 cm LV Systolic Length 4C 6.7 cm LV Diastolic Volume MOD 2C 112.3 cm??? LV Systolic Volume MOD 2C 36.6 cm??? LV Ejection Fraction MOD 2C 67.4 % LV Cardiac Index MOD 2C 3286.6 cm???/min???m??? LV Diastolic Length 2C 8.3 cm LV Systolic Length 2C 7.0 cm LA Volume 70.9 cm??? 18 - 58 / 22 - 52 cm??? LA Volume Index 35.3 cm???/m??? 16 - 28 cm???/m??? M-MODE Aortic Root Diameter MM 3.8 cm LA Systolic Diameter MM 3.7 cm LA Ao Ratio MM 1.0 AV Cusp Separation MM 2.5 cm DOPPLER MV Area PHT 3.2 cm??? Mitral E Point Velocity 69.1 cm/s Mitral A Point Velocity 64.8 cm/s Mitral E to A Ratio 1.1 MV Deceleration Time 237.5 ms FINDINGS Left Ventricle Left ventricular ejection fraction is estimated at 55-60%. Normal Left ventricular size, wall thickness, systolic function with no obvious regional wall motion abnormalities. Normal Left ventricular diastolic filling pattern. Right Ventricle Normal right ventricular size and function. Right ventricular systolic pressure within normal limits. Right Atrium Normal right atrial size. Left Atrium Mildly increased left atrial area. Mitral Valve Structurally normal mitral valve. Trace mitral regurgitation. No mitral stenosis. Aortic Valve Trileaflet aortic valve. No aortic valve stenosis or regurgitation. Tricuspid Valve Structurally normal tricuspid valve. No tricuspid stenosis. Trace tricuspid regurgitation. Pulmonic Valve Structurally normal pulmonic valve. No pulmonic stenosis. Trace pulmonic regurgitation. Pericardium No pericardial or pleural effusion. Aorta Mild aortic dilatation at the level of the sinuses of valsalva (root), 3.8cm. CONCLUSIONS Left ventricular ejection fraction 55-60% Trace mitral regurgitation Trace tricuspid regurgitation No pericardial effusion Previewed by: Dr. Binh Gray DO (Electronically Signed) Final Date: 25 October 2024 12:25
--- NOTE | 2024-10-25 14:20 | CA ---
Stress Echo Report Ayo Linares Age: 39 Gender: M : 1985 Exam Date: 10/25/2024 11:44 Exam Location: [facility] Ht (in): 71 Wt (lb): 178 Ordering Physician: Christy Bejarano Referring Physician: [id number] Sock Turner: Judith Sevilla RDCS Technologist Procedure CPT: Indication: CP ICD-9 Codes: Rhythm: Patient History: CHEST PAIN, DIFFICULTY IN BREATHING, PALPITATIONS, NUMBNESS IN FACE/NECK, CURRENT SMOKER, ASTHMA Cardiac Medications: Medications in past 24 hours: Contrast: Stress Results Protocol: Abhishek Total dose(mL): Exercise Duration (min:sec): 9:[address] Depression (mm): Angina Score: Haely Score: METS: 10.5 Resting HR: 93 Resting BP: 135 / 74 Peak HR: 156 Peak BP: 159 / 83 Max Predicted HR: 179 87 % Max Predicted HR Target HR: 152 Double Product: [id number] Stress Summary: BP Response: Reason for Termination: MAX EXERTION/TARGET HR Cardiac Symptoms: CHEST PAIN AND DIFFICULTY IN BREATHING. CHEST PAIN CONTINUED IN RECOVERY ECG Analysis Resting ECG: Stress ECG: Arrhythmia: Echo Analysis Resting Echo: Peak Echo Analysis: MEASUREMENTS (Male/Female) Normal Values CONCLUSIONS Patient underwent exercise stress echo with a Abhishek protocol treadmill stress test. Patient exercised into Stage 3 for a total of 9 minutes and 12/reaching a total of 10.5 METS. Patient's maximum heart rate was 156 which represented 87% age- predicted maximum heart rate. Stress EKG portion: At baseline patient's EKG showed normal sinus rhythm, normal axis, no significant ST-T wave abnormalities, minimal 0.[address] elevation inferior lateral leads. At peak exercise, EKG showed no significant change from baseline. Stress echo portion: 2-D echocardiogram was performed in the parasternal long, personal short, apical 2 and apical four-chamber views at rest, peak exercise and in recovery. At baseline, echocardiogram showed left ventricular ejection fraction 55% without wall motion abnormalities. With peak exercise, echocardiogram shows improvement in left ventricular ejection fraction, increase contractility, decrease in left ventricular end systolic dimension without wall motion abnormalities consistent with a normal response to exercise. Conclusions: 1. Normal EKG and echo response to exercise without evidence of inducible ischemia. 2. Good exercise capacity. 3. Chest pain noted with exertion. Clinical correlation recommended. Dr. Binh Gray DO (Electronically Signed) Final Date: 25 October 2024 14:19
[2024-10-25 14:47] VITALS: BP 110/71; PULSE 86; TEMP 98.4
--- NOTE | 2024-10-25 14:48 | P.DS ---
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 Patient reports chest pain that started last night when having a heated argument with his significant other. Chest pain is left sided, sharp and stabbing, worsened with movement and deep inspiration. No radiation. No diaphoresis, nausea or vomiting. Unable to take a deep breath due to the pain. Denies heavy lifting, cough or fever. Reports running out of Effexor for the last 4 days. In the ED he underwent extensive evaluation. BP 128/75, HR 89, RR 16, T 98F, 99% on RA. CBC, Coag panel, CMP significant for WBC 10.9, Hg 12.2, Hct 37.7, PT 9.9, Cl 109, glu 101. Trop < 0.012 x 2 with EKG showing NSR. CXR no acute pathology. Patient is admitted for chest pain rule out and Cardiology consultation. 10/25 Patient was seen and examined. Chest pain improved. Trops negative. ACS ruled out. Cardiology ordered stress echo which was negative. Cleared for discharge. Will refill Effexor and Gabapentin (home medication). Has PCP appt on the . Prescribed trial of Flexeril PRN for muscle spasms. General: non toxic, no distress, appears at stated age Derm: warm, dry Head: atraumatic, normocephalic, symmetric Eyes: EOMI, no lid lag, anicteric sclera Mouth: no lip lesion, mucus membranes moist Cardiovascular: S1S2 reg, no murmur, chest wall TTP Lungs: CTA bilateral, no rhonchi, no rales , no accessory muscle use Ext: no gross muscle atrophy, no edema, no contractures Neuro: no focal neuro deficits Psych: Alert, oriented, appropriate affect Discharge Diagnosis: Chest pain Leukocytosis Anxiety and Depression GERD This complex discharge took 35 minutes to complete. Patient Condition at Discharge: Stable Plan - Discharge Summary Discharge Rx Participant: No New Discharge Prescriptions: New Ibuprofen [Motrin] 400 mg PO Q6HR PRN tab PRN Reason: Mild Pain Or Fever > 100.5 Gabapentin [Neurontin] 600 mg PO BID #120 cap Cyclobenzaprine [Flexeril] 5 mg PO TID PRN #30 tab PRN Reason: Muscle Spasm Continue Omeprazole [PriLOSEC] 20 mg PO BID Venlafaxine HCl ER [Effexor XR] 300 mg PO DAILY #60 cap Discharge Medication List Omeprazole [PriLOSEC] 20 mg PO BID 06/23/17 [History] Cyclobenzaprine [Flexeril] 5 mg PO TID PRN #30 tab 10/25/24 [Rx] Gabapentin [Neurontin] 600 mg PO BID #120 cap 10/25/24 [Rx] Ibuprofen [Motrin] 400 mg PO Q6HR PRN tab 10/25/24 [Rx] Venlafaxine HCl ER [Effexor XR] 300 mg PO DAILY #60 cap 10/25/24 [Rx] Follow up Appointment(s)/Referral(s): Nonstaff,Physician [Primary Care Provider] - 1-2 days Discharge/Stand Alone Forms: AA Meetings Dist 22 & 24 - [facility], AA Meetings [facility], [facility], Who Do I Call?, Community Resources, Outpatient Counseling, Inp Substance Abuse Facilities, Area PCPs Discharge Disposition: HOME SELF-CARE
== END 2024-10-25 16:33 | disposition home or self-care (01) ==
LOC: EC 11:37 → 6NMEDSUR 13:09
PROVIDERS: ADMIT Family Medicine; ATTEND Family Medicine
DX: R07.89 Other chest pain (principal); D72.829 Elevated white blood cell count, unspecified; J98.11 Atelectasis; J45.909 Unspecified asthma, uncomplicated; K21.9 Gastro-esophageal reflux disease without esophagitis; R20.0 Anesthesia of skin; F17.210 Nicotine dependence, cigarettes, uncomplicated; F32.A Depression, unspecified; F41.9 Anxiety disorder, unspecified; F10.10 Alcohol abuse, uncomplicated; F15.10 Other stimulant abuse, uncomplicated; Z79.899 Other long term (current) drug therapy; Z88.1 Allergy status to other antibiotic agents; Z88.5 Allergy status to narcotic agent; Z88.2 Allergy status to sulfonamides; Z91.018 Allergy to other foods; Z85.47 Personal history of malignant neoplasm of testis
CPT/HCPCS: 96361 ×3; 96372 ×2; 96374; 96375; 99285; 36415; 94760; 93005; 93306; 93351; 85379; 80053 ×2; 83735; 84484; 85025 ×2; 85610; 85730; 71046; G0378 ×2; J2060; J1644 ×2; J2270

== ENCOUNTER 2024-11-22 01:40 | Emergency (ER) | payer MEDICARE, OTHER ==
--- NOTE | 2024-11-22 02:43 | ED ---
General Adult HPI - General Chief complaint: Nausea/Vomiting/Diarrhea Stated complaint: NVD Time Seen by Provider: 11/22/24 02:17 Source: patient Mode of arrival: ambulatory - History of Present Illness Initial comments: Patient is a 39-year-old gent with a past medical history seizure disorder, homelessness, presenting today for generalized weakness and nausea. Patient states over the last 2 days he has had bodyaches, nausea, decreased appetite. States he came in tonight because he could not sleep. This is associated malaise. States he felt like this last time he had COVID-19. He is unvaccinated against COVID. He denies any chest pain, shortness of breath, cough or hemoptysis. He does feel lightheaded with position changes. Endorses crampy lower abdominal pain. States he has had 3-4 loose stools over the last day that are nonbloody. No episodes of emesis. He has had subjective fevers, denies chills. Medications taken prior to arrival. - Related Data Home Medications Medication Instructions Recorded Confirmed Omeprazole [PriLOSEC] 20 mg PO BID 06/23/17 10/24/24 Previous Rx's Medication Instructions Recorded Cyclobenzaprine [Flexeril] 5 mg PO TID PRN #30 tab 10/25/24 Gabapentin [Neurontin] 600 mg PO BID #120 cap 10/25/24 Ibuprofen [Motrin] 400 mg PO Q6HR PRN tab 10/25/24 Venlafaxine HCl ER [Effexor XR] 300 mg PO DAILY #60 cap 10/25/24 Allergies Allergy/AdvReac Type Severity Reaction Status Date / Time black pepper Allergy Swelling Verified 11/22/24 02:03 sulfamethoxazole Allergy Rash/Hives Verified 11/22/24 02:03 [From Bactrim] tramadol Allergy Rash/Hives Verified 11/22/24 02:03 trimethoprim [From Bactrim] Allergy Rash/Hives Verified 11/22/24 02:03 Review of Systems ROS Statement: Those systems with pertinent positive or pertinent negative responses have been documented in the HPI. ROS Other: All systems not noted in ROS Statement are negative. Constitutional: Reports: fever, weakness. Denies: chills Respiratory: Denies: cough, dyspnea, hemoptysis Cardiovascular: Denies: chest pain Endocrine: Reports: fatigue Gastrointestinal: Reports: abdominal pain, nausea, diarrhea. Denies: vomiting, melena, hematochezia Musculoskeletal: Reports: myalgia Neurological: Reports: headache, numbness (states lips feel tingly). Denies: weakness Past Medical History Past Medical History: Asthma, Cancer, GERD/Reflux, Seizure Disorder Additional Past Medical History / Comment(s): Testicular CA ,chronic back pain, SEIZURE -LAST ONE May. History of Any Multi-Drug Resistant Organisms: None Reported Past Surgical History: Back Surgery Additional Past Surgical History / Comment(s): testicular surgery, lymph node removal in abdomen Past Anesthesia/Blood Transfusion Reactions: Blood Transfusion Reaction, Motion Sickness Additional Past Anesthesia/Blood Transfusion Reaction / Comment(s): "WOKE UP DURING THE LYMPH NODE SURGERY, Past Psychological History: Anxiety, Depression Smoking Status: Current every day smoker Past Alcohol Use History: None Reported, Abuse Past Drug Use History: None Reported General Exam - General Exam Comments Initial Comments: PE: CONSTITUTIONAL: [no apparent distress, sleeping comfortably on assessment, tired appearing though nontoxic] SKIN: [warm, dry, no jaundice, hives or petechiae] EYES:[ pupils are equally round, extraocular movements intact without nystagmus, clear conjunctiva, non-icteric sclera] HENT: [normocephalic, atraumatic, moist mucus membranes, oropharynx clear without exudates] NECK: , [Full range of motion, normal appearance] PULMONARY: [clear to auscultation without wheezes, rhonchi, or rales, normal excursion, no accessory muscle use and no stridor] CARDIOVASCULAR:[ regular rate, rhythm, normal S1 and S2. No appreciated murmurs, rubs or gallops. Strong radial pulses with intact distal perfusion. No lower extremity edema] GASTROINTESTINAL: [soft, active bowel sounds throughout, non-tender, non- distended, no palpable masses, no rebound or guarding. No hepatosplenomegaly] GENITOURINARY: MUSCULOSKELETAL: [Extremities have no gross deformity, no edema, redness, or swelling. No calf swelling ] NEUROLOGIC: [_a/o x 3, GCS 15, normal mentation and speech. Moves all extremities x 4 without motor or sensory deficit] PSYCHIATRIC:[ _normal mood and affect, thought process is clear and linear] Course Vital Signs 11/22/24 01:59 Temperature 98.9 F Pulse Rate 105 H Respiratory 16 Rate Blood Pressure 115/81 O2 Sat by Pulse 96 Oximetry EKG Findings - EKG Comments: EKG Findings:: Sinus rhythm, rate 80 bpm [place] interval 142 ms QT/QTc 370/5/411 ms, normal axis, no ST elevations or depressions, no rhythmCompared to EKG performed on 10/25/2024, no significant changes from prior Medical Decision Making - Medical Decision Making Was pt. sent in by a medical professional or institution (, PA, [employer], urgent care, hospital, or [facility]...) When possible be specific @ -[No] Did you speak to anyone other than the patient for history (EMS, parent, family, police, friend...)? What history was obtained from this source @ -[No] Did you review nursing and triage notes (agree or disagree)? Why? @ -[I reviewed and agree with nursing and triage notes] Were old charts reviewed (outside hosp., previous admission, EMS record, old EKG, old radiological studies, urgent care reports/EKG's, [facility] records)? Report findings Grades reviewed, appears patient was recently admitted for chest painStress echo showed normal EKG and echo response to exercise without evidence of ischemia Differential Diagnosis (chest pain, altered mental status, abdominal pain women, abdominal pain men, vaginal bleeding, weakness, fever, dyspnea, syncope, headache, dizziness, GI bleed, back pain, seizure, CVA, palpatations, mental health, musculoskeletal)? Differential Weakness: Hypoglycemia, shock, sepsis, hyponatremia, anemia, infection, VA, ETOH, adverse medicine reaction, overdose, stroke, this is not meant to be an all-inclusive list. EKG interpreted by me (3pts min.). @ -[As above] X-rays interpreted by me (1pt min.). @Personally reviewed patient's chest x-ray, I see no cardiomegaly or consolidations CT interpreted by me (1pt min.). @ -[None done] U/S interpreted by me (1pt. min.). @ -[None done] What testing was considered but not performed or refused? (CT, X-rays, U/S, labs)? Why? @ -[None] What meds were considered but not given or refused? Why? @ -[None] Did you discuss the management of the patient with other professionals (professionals i.e. , PA, [employer], lab, RT, psych nurse, administrator social welfare, popped corn oven attendant, teacher, third officer, adult protective caseworker)? Give summary @ -[No] Was smoking cessation discussed for >3mins.? @ -[No] Was critical care preformed (if so, how long)? @ -[No] Were there social determinants of health that impacted care today? How? (Homelessness, low income, unemployed, alcoholism, drug addiction, transportation, low edu. Level, literacy, decrease access to med. care, custodial, rehab)? Homelessness Was there de-escalation of care discussed even if they declined (Discuss DNR or withdrawal of care, Hospice)? @ -[No] What co-morbidities impacted this encounter? (DM, HTN, Smoking, COPD, CAD, Cancer, CVA, ARF, Chemo, Hep., AIDS, mental health diagnosis, sleep apnea, morbid obesity)? Current smoker Was patient admitted / discharged? Hospital course, mention meds given and route, prescriptions, significant lab abnormalities, going to OR and other pertinent info. @ -[hospital course] patient is a 39-year-old gentleman presenting today for g eneralized weakness, malaise, decreased appetite and nausea x 2 days. Mildly tachycardic on arrival with heart rate 105 otherwise vital signs within acceptable limits. Complete physical exam performed, did show scant rhonchi in the left lower lobe of the lung. Otherwise soft nontender abdomen no lower extremity swelling. Unlabored. Plan for chest x-ray due to focal lung sounds, 7 testing comprehensive labs IV fluids Tylenol and Toradol for headache and bodyaches. Labs and imaging reviewed. Grossly within normal limits. Abnormal values not concerning for acute pathology related to presenting complaint. Updated patient to findings, discussed plan for discharge. Undiagnosed new problem with uncertain prognosis? @ -[No] Drug Therapy requiring intensive monitoring for toxicity (Heparin, Nitro, Insulin, Cardizem)? @ -[No] Were any procedures done? @ -[No] Diagnosis/symptom? Malaise, decreased appetite Acute, or Chronic, or Acute on Chronic? Acute Uncomplicated (without systemic symptoms) or Complicated (systemic symptoms)? Gated Side effects of treatment? @ -[No] Exacerbation, Progression, or Severe Exacerbation? @ -[No] Poses a threat to life or bodily function? How? (Chest pain, USA, VA, pneumonia, PE, COPD, DKA, ARF, appy, cholecystitis, CVA, Diverticulitis, Homicidal, Suicid al, threat to staff... and all critical care pts) @ -No - Lab Data Result diagrams: 11/22/24 02:10 11/22/24 02:10 Lab Results 11/22/24 11/22/24 11/22/24 Range/Units 02:10 02:10 02:10 WBC 10.6 (3.8-10.6) k/uL RBC 5.08 (4.30-5.90) m/uL Hgb 13.7 (13.0-17.5) gm/dL Hct 41.8 (39.0-53.0) % MCV 82.4 (80.0-100.0) fL MCH 26.9 (25.0-35.0) pg MCHC 32.7 (31.0-37.0) g/dL RDW 15.9 H (11.5-15.5) % Plt Count 344 (150-450) k/uL MPV 7.1 Neutrophils % 86 % Lymphocytes % 7 % Monocytes % 5 % Eosinophils % 0 % Basophils % 0 % Neutrophils # 9.2 H (1.3-7.7) k/uL Lymphocytes # 0.8 L (1.0-4.8) k/uL Monocytes # 0.6 (0-1.0) k/uL Eosinophils # 0.0 (0-0.7) k/uL Basophils # 0.0 (0-0.2) k/uL PT (10.0-12.5) sec INR (<1.2) APTT (22.0-30.0) sec Sodium 134 L (137-145) mmol/L Potassium 3.7 (3.5-5.1) mmol/L Chloride 101 (98-107) mmol/L Carbon Dioxide 21 L (22-30) mmol/L Anion Gap 12 mmol/L BUN 17 (9-20) mg/dL Creatinine 0.97 (0.66-1.25) mg/dL Est GFR (CKD-EPI)AfAm >90 (>60 ml/min/1.73 sqM) Est GFR (CKD-EPI)NonAf >90 (>60 ml/min/1.73 sqM) Glucose 126 H (74-99) mg/dL POC Glucose (mg/dL) (70-110) mg/dL POC Glu Bridge Crane Operator ID Calcium 9.8 (8.4-10.2) mg/dL Magnesium 1.9 (1.6-2.3) mg/dL Total Bilirubin 0.5 (0.2-1.3) mg/dL AST 24 (17-59) U/L ALT 21 (4-49) U/L Alkaline Phosphatase 60 (38-126) U/L Troponin I <0.012 (0.000-0.034) ng/mL Total Protein 7.5 (6.3-8.2) g/dL Albumin 4.5 (3.5-5.0) g/dL Lipase 46 (23-300) U/L TSH 0.411 L (0.465-4.680) mIU/L Free T4 (0.78-2.19) ng/dL Influenza Type A (PCR) (Not Detectd) Influenza Type B (PCR) (Not Detectd) RSV (PCR) (Not Detectd) SARS-CoV-2 (PCR) (Not Detectd) 11/22/24 11/22/24 11/22/24 Range/Units 02:10 02:44 02:44 WBC (3.8-10.6) k/uL RBC (4.30-5.90) m/uL Hgb (13.0-17.5) gm/dL Hct (39.0-53.0) % MCV (80.0-100.0) fL MCH (25.0-35.0) pg MCHC (31.0-37.0) g/dL RDW (11.5-15.5) % Plt Count (150-450) k/uL MPV Neutrophils % % Lymphocytes % % Monocytes % % Eosinophils % % Basophils % % Neutrophils # (1.3-7.7) k/uL Lymphocytes # (1.0-4.8) k/uL Monocytes # (0-1.0) k/uL Eosinophils # (0-0.7) k/uL Basophils # (0-0.2) k/uL PT 10.4 (10.0-12.5) sec INR 0.9 (<1.2) APTT 24.6 (22.0-30.0) sec Sodium (137-145) mmol/L Potassium (3.5-5.1) mmol/L Chloride (98-107) mmol/L Carbon Dioxide (22-30) mmol/L Anion Gap mmol/L BUN (9-20) mg/dL Creatinine (0.66-1.25) mg/dL Est GFR (CKD-EPI)AfAm (>60 ml/min/1.73 sqM) Est GFR (CKD-EPI)NonAf (>60 ml/min/1.73 sqM) Glucose (74-99) mg/dL POC Glucose (mg/dL) (70-110) mg/dL POC Glu Bridge Crane Operator ID Calcium (8.4-10.2) mg/dL Magnesium (1.6-2.3) mg/dL Total Bilirubin (0.2-1.3) mg/dL AST (17-59) U/L ALT (4-49) U/L Alkaline Phosphatase (38-126) U/L Troponin I (0.000-0.034) ng/mL Total Protein (6.3-8.2) g/dL Albumin (3.5-5.0) g/dL Lipase (23-300) U/L TSH (0.465-4.680) mIU/L Free T4 0.88 (0.78-2.19) ng/dL Influenza Type A (PCR) Not Detected (Not Detectd) Influenza Type B (PCR) Not Detected (Not Detectd) RSV (PCR) Not Detected (Not Detectd) SARS-CoV-2 (PCR) Not Detected (Not Detectd) 11/22/24 Range/Units 02:46 WBC (3.8-10.6) k/uL RBC (4.30-5.90) m/uL Hgb (13.0-17.5) gm/dL Hct (39.0-53.0) % MCV (80.0-100.0) fL MCH (25.0-35.0) pg MCHC (31.0-37.0) g/dL RDW (11.5-15.5) % Plt Count (150-450) k/uL MPV Neutrophils % % Lymphocytes % % Monocytes % % Eosinophils % % Basophils % % Neutrophils # (1.3-7.7) k/uL Lymphocytes # (1.0-4.8) k/uL Monocytes # (0-1.0) k/uL Eosinophils # (0-0.7) k/uL Basophils # (0-0.2) k/uL PT (10.0-12.5) sec INR (<1.2) APTT (22.0-30.0) sec Sodium (137-145) mmol/L Potassium (3.5-5.1) mmol/L Chloride (98-107) mmol/L Carbon Dioxide (22-30) mmol/L Anion Gap mmol/L BUN (9-20) mg/dL Creatinine (0.66-1.25) mg/dL Est GFR (CKD-EPI)AfAm (>60 ml/min/1.73 sqM) Est GFR (CKD-EPI)NonAf (>60 ml/min/1.73 sqM) Glucose (74-99) mg/dL POC Glucose (mg/dL) 112 H (70-110) mg/dL POC Glu Bridge Crane Operator ID [place]wyatt Manuel Calcium (8.4-10.2) mg/dL Magnesium (1.6-2.3) mg/dL Total Bilirubin (0.2-1.3) mg/dL AST (17-59) U/L ALT (4-49) U/L Alkaline Phosphatase (38-126) U/L Troponin I (0.000-0.034) ng/mL Total Protein (6.3-8.2) g/dL Albumin (3.5-5.0) g/dL Lipase (23-300) U/L TSH (0.465-4.680) mIU/L Free T4 (0.78-2.19) ng/dL Influenza Type A (PCR) (Not Detectd) Influenza Type B (PCR) (Not Detectd) RSV (PCR) (Not Detectd) SARS-CoV-2 (PCR) (Not Detectd) Disposition Clinical Impression: Malaise and fatigue Disposition: HOME SELF-CARE Condition: Good Instructions (If sedation given, give patient instructions): Acute Diarrhea (ED) Additional Instructions: Every disease is a spectrum and a small chance still exists that a serious condition could develop, for this reason, please monitor yourself closely for new, changing or worsening symptoms, symptoms that persist beyond 48 hours, fever for more than 4 days, bloody or bright green vomit, black or bloody stools, chest pain, inability to tolerate/keep down fluids or your medications, inability to follow up with outpatient providers as instructed and should you experience these symptoms or should you have any further concerns for your wellbeing please return to the ED or call 911 immediately. Please drink plenty of fluids and get plenty of rest. PLEASE call your primary care physician as soon as possible to arrange / discuss plan for followup appointment. Appointment in the next 1-3 days is strongly encouraged if possible. PLEASE let us know here before you leave if there is anything further we can do to be of any assistance. Take care and feel Better! Is patient prescribed a controlled substance at d/c from ED?: No Referrals: None,Stated [Primary Care Provider] - 1-2 days
[2024-11-22 02:47] LABS: Basophils % (A) 0 %; Eosinophils % (A) 0 %; HCT 41.8 % (39.0-53.0); HGB 13.7 gm/dL (13.0-17.5); Lymphocytes # (A) 0.8 k/uL (1.0-4.8); Lymphocytes % (A) 7 %; MCH 26.9 pg (25.0-35.0); MCHC 32.7 g/dL (31.0-37.0); MCV 82.4 fL (80.0-100.0); Mean Platelet Volume 7.1; Monocytes # (A) 0.6 k/uL (0-1.0); Monocytes % (A) 5 %; Neutrophils # (A) 9.2 k/uL (1.3-7.7); Neutrophils % (A) 86 %; Platelet Count 344 k/uL (150-450); RBC 5.08 m/uL (4.30-5.90); RDW 15.9 % (11.5-15.5); WBC 10.6 k/uL (3.8-10.6)
[2024-11-22 02:48] LABS: Glucose,Whole Blood 112 mg/dL (70-110)
[2024-11-22] MEDS: SODIUM CHLORIDE 0.9% 1,000 ML IV STA (02:51)
[2024-11-22] MEDS: ONDANSETRON 4 MG/2 ML VIAL IVP STA (02:51)
[2024-11-22] MEDS: ACETAMINOPHEN TAB 500 MG TAB PO STA (02:52)
[2024-11-22] MEDS: KETOROLAC 15 MG/ML 1 ML VIAL IVP STA (02:52)
[2024-11-22 02:54] LABS: ALT 21 U/L (4-49); AST 24 U/L (17-59); African American GFR (CKD) >90 (>60 ml/min/1.73 sqM); Albumin 4.5 g/dL (3.5-5.0); Alkaline Phosphatase 60 U/L (38-126); Anion Gap 12 mmol/L; Blood Urea Nitrogen 17 mg/dL (9-20); Calcium 9.8 mg/dL (8.4-10.2); Carbon Dioxide 21 mmol/L (22-30); Chloride 101 mmol/L (98-107); Glucose 126 mg/dL (74-99); Lipase 46 U/L (23-300); Magnesium 1.9 mg/dL (1.6-2.3); Non-African American GFR(CKD) >90 (>60 ml/min/1.73 sqM); Potassium 3.7 mmol/L (3.5-5.1); Sodium 134 mmol/L (137-145); Total Bilirubin 0.5 mg/dL (0.2-1.3); Total Protein 7.5 g/dL (6.3-8.2)
[2024-11-22 03:26] LABS: INR 0.9 (<1.2); Partial Thromboplastin Time 24.6 sec (22.0-30.0); Prothrombin Time 10.4 sec (10.0-12.5)
--- NOTE | 2024-11-22 05:24 | XR ---
EXAM: XR Chest, 2 Views CLINICAL HISTORY: ITS.REASON XR Reason: Weakness, rhonchi LLL TECHNIQUE: Frontal and lateral views of the chest. COMPARISON: X-ray dated 10/24/2024 FINDINGS: Lungs: Unremarkable. No consolidation. Pleural space: Unremarkable. No pneumothorax. Heart: Unremarkable. No cardiomegaly. Mediastinum: Unremarkable. Normal mediastinal contour. Bones/joints: Unremarkable. No acute fracture. IMPRESSION: Normal chest x-rays.
[2024-11-22 05:31] VITALS: BP 111/81; PULSE 85; RESP 17; TEMP 98.3
== END 2024-11-22 05:36 | disposition home or self-care (01) ==
LOC: EC 01:40
DX: R53.83 Other fatigue (principal); R53.81 Other malaise; F17.200 Nicotine dependence, unspecified, uncomplicated; Z88.6 Allergy status to analgesic agent; Z88.1 Allergy status to other antibiotic agents; Z88.2 Allergy status to sulfonamides; Z91.018 Allergy to other foods; Z11.52 Encounter for screening for COVID-19
CPT/HCPCS: 36415; 93005; 84439; 80053; 83690; 83735; 84443; 84484; 85025; 85610; 85730; 87636; 71046; 99284; 96374; 96375; 96361; J2405; J1885